=== PATIENT | female | born 1965 | race Caucasian/White ===

== ENCOUNTER → 2016-09-23 | Outpatient (CLI) | payer BC ==
[~2016-09-23] MED LIST: ESOM20CA PO; IBUP-1050 PO; MISCCAP52 PO; NLSI INJ; OPTIRAY 320 IV PRN
--- NOTE | 2016-09-23 11:08 | DIAGNOSTIC IMAGING REPORT ---
CT SOFT TISSUE NECK WITH CT DOSE: 527.79 mGycm CLINICAL HISTORY: Left neck swelling. History of lymphoma. TECHNIQUE: Helical images were acquired during intravenous administration of 93 cc of Optiray 320. COMPARISON STUDY: None. FINDINGS: The visualized portions of the lung apices are unremarkable. No thyroid masses are visualized. No salivary gland masses are visualized. There are mildly prominent bilateral cervical lymph nodes left greater than right. No individual node is pathologically enlarged by size criteria. There are no necrotic nodes. There are no fluid collections suspicious for abscess. There is no evidence of airway compromise. There is mucosal thickening within the sphenoid sinus. IMPRESSION: 1. No pathologic masses identified 2. Cervical lymph nodes at the upper limits of normal in size. No necrotic nodes are visualized. Electronically signed by: Jose Maharaj M.D. 09/23/2016 11:06 AM Dictated Date/Time: 09/23/2016 11:01 AM
== END | disposition home or self-care (01) ==
LOC: C.CTS 10:04
PROVIDERS: ATTEND Nurse Practitioner Family
DX: C83.01 Small cell B-cell lymphoma, lymph nodes of head, face, and neck (principal)

== ENCOUNTER 2024-04-20 15:59 | Inpatient (IN) ==
--- NOTE | 2024-04-20 16:22 | Emergency Department Note ---
Impression & Plan JEREL (acute kidney injury), Diarrhea, Abdominal pain, Hypotension, Hypomagnesemia ED Provider Note NAME: JASON TORRES AGE: 58 SEX: F : 1965 ARRIVES VIA: Walk-In INFORMANT: Patient, ED PROVIDER(S): Kirit Hoffmann DO CHIEF COMPLAINT: Diarrhea HPI: The patient is a 58-year-old female who presented to the emergency department for an evaluation of diarrhea. The patient has been experiencing loose stools over the course of the last several days. She was seen in our facility recently but that was because of abnormal electrolytes. She was found to have an elevated creatinine compared to baseline. The patient states that she has not been able to eat or drink well because of the diarrhea. She did have some labs and stool studies done today. She denies having any chest pain or difficulty breathing. She does complain of some lower abdominal pain. She denies having any rectal bleeding. ROS: See above HPI for pertinent positives & negatives. A total of 10 systems reviewed and were otherwise negative. PAST MEDICAL HISTORY: See Below PAST SURGICAL HISTORY: See Below FAMILY HISTORY: See Below SOCIAL HISTORY: See Below HOME MEDICATIONS: See Below ALLERGIES: See Below VITALS: See Below PHYSICAL EXAMINATION: GENERAL: Patient is awake alert in no acute distress patient is resting comfortably and showing no signs of anxiety EYES: The conjunctivae are clear. The pupils are round and reactive. EARS, NOSE, MOUTH AND THROAT: The nose is without any evidence of any deformity. NECK: The neck is nontender and supple. RESPIRATORY: Normal respiratory effort is noted there is no evidence of wheezing rhonchi or rales CARDIOVASCULAR: Regular rate and rhythm noted there no murmurs rubs or gallops normal S1 normal S2. GASTROINTESTINAL: The abdomen was soft and nondistended. Lower abdominal tenderness was noted to palpation but no guarding or rigidity. MUSCULOSKELETAL/EXTREMITIES: There is no evidence of gross deformity full range of motion is noted in the hips and shoulders. SKIN: There is no obvious evidence of any rash. There are no petechiae, pallor or cyanosis noted. NEUROLOGIC: Patient is awake alert and oriented x3 MEDICAL DECISION MAKING: The patient is a 58-year-old female who presented to the emergency department for an evaluation of dehydration. The patient has been having increasing creatinines. She is under treatment for CLL. The patient was hypotensive but she was awake and alert and had really no complaints. Her creatinine had gone up significantly since the last time she was in our emergency department. I discussed the patient's laboratory and radiographic studies with her. She was treated empirically with IV fluids and IV antibiotics. She has been having diarrhea. C. difficile was negative that was done earlier today. [facility] have agreed to evaluate the patient in the emergency department for further management and disposition. Because of the persistent hypotension a cortisol level was drawn. The patient was also treated with hydrocortisone. Triage Nursing notes reviewed. Prior medical records reviewed Vital Signs: reviewed and remarkable for hypotension. Differential diagnosis: Etiologies such as appendicitis, diverticulitis, obstruction, inflammatory bowel disease, renal colic, PUD, biliary pathology, pancreatitis, mesenteric ischemia, aortic pathology, infections, genitourinary, UTI, perforated viscus, as well as others were entertained. ER treatment provided: See below Diagnostics interpreted by me: ECG: EKG was obtained in the emergency department. My interpretation is normal sinus rhythm at 91 bpm. There is no ectopy. Poor R wave progression was noted. This was compared to a tracing from April 12, 2024. No changes were noted. Cardiac Monitoring: An order was placed for continuous cardiac monitoring. The monitor shows a rate of 80 bpm with sinus rhythm. Laboratory studies: As stated above and show below. Imaging studies: See below. Radiographic imaging was reviewed by myself Consultation(s): I discussed this case with Dr. Jackson who [facility] ED COURSE: Procedures: none Critical Care: I have personally spent greater than 45 minutes of critical care time in the direct management of this patient. This includes bedside care, interpretation of diagnostic studies, and testing, discussion with consultants, patient, and family members, and other required patient management activities. This 45 minutes is in excess of all separately billable procedures. Past Med/Surg History Problem List (Updated 04/20/24 @ 20:52 by Kirit Hoffmann DO) Sepsis Hypomagnesemia (Acute) Hypotension (Acute) Abdominal pain (Acute) Diarrhea (Acute) JEREL (acute kidney injury) (Acute) Nausea Colon cancer screening Retroperitoneal lymphadenopathy Diabetes Morbid obesity BMI 51.5 Encounter for pre-operative examination CLL (chronic lymphocytic leukemia) relapsed Hypertension Sleep apnea CPAP Medical History (Updated 04/20/24 @ 20:52 by Kirit Hoffmann DO) Insulin resistance patient states no meds any longer and "not diabetic" History of bronchitis Hypertension Sleep apnea CPAP CLL (chronic lymphocytic leukemia) History of COVID-19 hx 03/2021--mild symptoms, no symptoms now Osteoarthritis Fatty liver GERD (gastroesophageal reflux disease) IBS (irritable bowel syndrome) Hearing deficit Migraine SOB (shortness of breath) on exertion Aortic aneurysm MONITORING - following W/ DR. Carias- "measuring up to 4.2 cm in diameter" per chest CT 04/2021 [place] Cardiac murmur No murmur on exam per 05/28/21 general surgery note Surgical History Port-A-Cath in place (06/02/21) Insertion Access Port with Fluoroscopy(Left) - Cristobal Mina DO, FACS 06/02/2021 pt states it is a power port History of bone marrow biopsy History of lymph node excision CERVICAL History of surgery REMOVAL OF BENIGN GROWTH FROM RLE History of tonsillectomy History of tubal ligation Family History Mother Heart disease Family history of reaction to anesthesia PONV Cancer Hypertension Mother Family history of diabetes mellitus Grandmother Family history of diabetes mellitus Heart disease Cancer Hypertension Social History Smoking Status: Never smoker Cigarettes Per Day: quit in college; Second Hand Exposure: No; Do You Dip or Chew Tobacco: No; Hx Alcohol Use: Yes Alcohol type: beer and wine Alcohol Intake Frequency: Monthly or Less Alcohol Intake Frequency Comment: holidays Hx Substance Use: No Preferred Language: Palestinian Communication Ability: Effective Network Operations Lead Required: No Beliefs That Will Affect Care: None marital status: Current Living Situation: Spouse current occupational status: employed 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 How many Children do You have: 6 Feels Safe at Home: Yes during the past year weight has: increased > 10 lbs Assistive Devices: Glasses Allergies Allergies Allergy/AdvReac Type Severity Reaction Status Date / Time meperidine AdvReac Intermediate LOSS OF Verified 03/15/24 11:38 MEMORY procaine AdvReac Mild INEFFECTIVE Verified 03/15/24 11:38 Home Meds Home Medications Medication Instructions Recorded Confirmed aspirin 81 mg chewable tablet 81 mg PO QAM 11/24/18 04/20/24 cetirizine 10 mg tablet 10 mg PO QAM PRN Allergy Symptoms 11/24/18 04/20/24 furosemide 20 mg tablet 20 mg PO QAM 11/24/18 04/20/24 losartan 25 mg tablet 25 mg PO QAM 05/29/21 04/20/24 metoprolol tartrate 25 mg tablet 12.5 mg PO BID 05/29/21 04/20/24 famotidine 20 mg tablet (Pepcid) 20 mg PO HS PRN Other 04/27/22 04/20/24 pantoprazole 40 mg tablet,delayed 40 mg PO QAM 08/18/22 04/20/24 release Cleavers 20 ml PO QAM 03/01/24 04/20/24 [place] 20 ml PO QAM 03/01/24 04/20/24 turmeric 1 cap PO BID 03/01/24 04/20/24 allopurinol 300 mg tablet 300 mg PO PM 04/20/24 04/20/24 ondansetron HCl 8 mg tablet 8 mg PO DIRECTED PRN n/v 04/20/24 04/20/24 prochlorperazine maleate 10 mg 10 mg PO DIRECTED PRN n/v 04/20/24 04/20/24 tablet venetoclax 10 mg (14)-50 mg 1 ea PO UD 04/20/24 04/20/24 (7)-100 mg (21) tablets in a dose pack (Venclexta Starting Pack) Results & Data (ED) Vital Signs Vital Signs - 24 hr 04/20/24 16:01 04/20/24 16:39 04/20/24 17:03 Temperature 36.8 C Temperature Source Skin Pulse Rate 90 91 H Pulse Rate [Apical] Pulse Rate from SpO2 Sensor Respiratory Rate 18 Blood Pressure 75/57 L Blood Pressure [Left Arm] Blood Pressure Mean 63 Blood Pressure Mean [Left Arm] Blood Pressure Position [Left Arm] Pulse Oximetry 97 Oxygen Delivery Method Room Air Room Air Sepsis Recent Fever Within 48 Hours No Sepsis New/Unexplained Change in Mental Status No Sepsis Action Taken by Nursing No Action Required 04/20/24 17:12 04/20/24 17:25 04/20/24 17:32 Temperature Temperature Source Pulse Rate 86 83 Pulse Rate [Apical] 90 Pulse Rate from SpO2 Sensor Respiratory Rate 20 18 13 Blood Pressure 99/57 L 79/53 L Blood Pressure [Left Arm] 74/36 L Blood Pressure Mean 66 61 Blood Pressure Mean [Left Arm] 48 Blood Pressure Position [Left Arm] Pulse Oximetry 94 97 97 Oxygen Delivery Method Room Air Room Air Sepsis Recent Fever Within 48 Hours Sepsis New/Unexplained Change in Mental Status Sepsis Action Taken by Nursing 04/20/24 17:35 04/20/24 17:38 04/20/24 17:50 Temperature Temperature Source Pulse Rate 87 84 Pulse Rate [Apical] Pulse Rate from SpO2 Sensor 84 Respiratory Rate 16 19 Blood Pressure 81/58 L 88/55 L Blood Pressure [Left Arm] Blood Pressure Mean 65 63 Blood Pressure Mean [Left Arm] Blood Pressure Position [Left Arm] Pulse Oximetry 96 99 Oxygen Delivery Method Room Air Room Air Sepsis Recent Fever Within 48 Hours Sepsis New/Unexplained Change in Mental Status Sepsis Action Taken by Nursing 04/20/24 17:50 04/20/24 18:00 04/20/24 18:00 Temperature Temperature Source Pulse Rate 88 Pulse Rate [Apical] Pulse Rate from SpO2 Sensor 84 Respiratory Rate 13 Blood Pressure 105/60 105/60 Blood Pressure [Left Arm] Blood Pressure Mean 68 68 Blood Pressure Mean [Left Arm] Blood Pressure Position [Left Arm] Pulse Oximetry 96 Oxygen Delivery Method Sepsis Recent Fever Within 48 Hours Sepsis New/Unexplained Change in Mental Status Sepsis Action Taken by Nursing 04/20/24 18:02 04/20/24 18:05 04/20/24 18:05 Temperature Temperature Source Pulse Rate 83 82 Pulse Rate [Apical] Pulse Rate from SpO2 Sensor 74 77 Respiratory Rate 15 20 Blood Pressure 85/61 L Blood Pressure [Left Arm] Blood Pressure Mean 69 Blood Pressure Mean [Left Arm] Blood Pressure Position [Left Arm] Pulse Oximetry 99 98 Oxygen Delivery Method Sepsis Recent Fever Within 48 Hours Sepsis New/Unexplained Change in Mental Status Sepsis Action Taken by Nursing 04/20/24 18:05 04/20/24 18:08 04/20/24 18:11 Temperature Temperature Source Pulse Rate 85 Pulse Rate [Apical] Pulse Rate from SpO2 Sensor 82 Respiratory Rate 16 Blood Pressure 85/61 L 99/55 L Blood Pressure [Left Arm] Blood Pressure Mean 69 70 Blood Pressure Mean [Left Arm] Blood Pressure Position [Left Arm] Pulse Oximetry 94 Oxygen Delivery Method Sepsis Recent Fever Within 48 Hours Sepsis New/Unexplained Change in Mental Status Sepsis Action Taken by Nursing 04/20/24 18:15 04/20/24 18:17 04/20/24 18:25 Temperature Temperature Source Pulse Rate 85 Pulse Rate [Apical] Pulse Rate from SpO2 Sensor 87 Respiratory Rate 13 Blood Pressure 99/60 L 91/58 L Blood Pressure [Left Arm] Blood Pressure Mean 74 64 Blood Pressure Mean [Left Arm] Blood Pressure Position [Left Arm] Pulse Oximetry 98 Oxygen Delivery Method Sepsis Recent Fever Within 48 Hours Sepsis New/Unexplained Change in Mental Status Sepsis Action Taken by Nursing 04/20/24 18:35 04/20/24 18:38 04/20/24 18:40 Temperature Temperature Source Pulse Rate 83 83 Pulse Rate [Apical] Pulse Rate from SpO2 Sensor 83 83 Respiratory Rate 22 17 Blood Pressure 88/56 L Blood Pressure [Left Arm] Blood Pressure Mean 66 Blood Pressure Mean [Left Arm] Blood Pressure Position [Left Arm] Pulse Oximetry 98 97 Oxygen Delivery Method Room Air Sepsis Recent Fever Within 48 Hours Sepsis New/Unexplained Change in Mental Status Sepsis Action Taken by Nursing 04/20/24 18:40 04/20/24 18:41 04/20/24 18:45 Temperature Temperature Source Pulse Rate 81 Pulse Rate [Apical] Pulse Rate from SpO2 Sensor 82 Respiratory Rate 15 Blood Pressure 88/56 L 95/56 L Blood Pressure [Left Arm] Blood Pressure Mean 66 61 Blood Pressure Mean [Left Arm] Blood Pressure Position [Left Arm] Pulse Oximetry 96 Oxygen Delivery Method Sepsis Recent Fever Within 48 Hours Sepsis New/Unexplained Change in Mental Status Sepsis Action Taken by Nursing 04/20/24 18:50 04/20/24 18:50 04/20/24 18:50 Temperature Temperature Source Pulse Rate Pulse Rate [Apical] Pulse Rate from SpO2 Sensor Respiratory Rate Blood Pressure 85/55 L 85/55 L 85/55 L Blood Pressure [Left Arm] Blood Pressure Mean 63 63 63 Blood Pressure Mean [Left Arm] Blood Pressure Position [Left Arm] Pulse Oximetry Oxygen Delivery Method Sepsis Recent Fever Within 48 Hours Sepsis New/Unexplained Change in Mental Status Sepsis Action Taken by Nursing 04/20/24 18:50 04/20/24 18:53 04/20/24 18:55 Temperature Temperature Source Pulse Rate 82 Pulse Rate [Apical] Pulse Rate from SpO2 Sensor 82 Respiratory Rate 15 Blood Pressure 85/55 L 91/57 L Blood Pressure [Left Arm] Blood Pressure Mean 63 68 Blood Pressure Mean [Left Arm] Blood Pressure Position [Left Arm] Pulse Oximetry 95 Oxygen Delivery Method Sepsis Recent Fever Within 48 Hours Sepsis New/Unexplained Change in Mental Status Sepsis Action Taken by Nursing 04/20/24 19:00 04/20/24 19:00 04/20/24 19:00 Temperature Temperature Source Pulse Rate 83 Pulse Rate [Apical] Pulse Rate from SpO2 Sensor 84 Respiratory Rate 15 Blood Pressure 94/58 L 94/58 L Blood Pressure [Left Arm] Blood Pressure Mean 70 70 Blood Pressure Mean [Left Arm] Blood Pressure Position [Left Arm] Pulse Oximetry 98 Oxygen Delivery Method Sepsis Recent Fever Within 48 Hours Sepsis New/Unexplained Change in Mental Status Sepsis Action Taken by Nursing 04/20/24 19:02 04/20/24 19:05 04/20/24 19:08 Temperature Temperature Source Pulse Rate 81 82 Pulse Rate [Apical] Pulse Rate from SpO2 Sensor 81 78 Respiratory Rate 17 15 Blood Pressure 89/57 L Blood Pressure [Left Arm] Blood Pressure Mean 64 Blood Pressure Mean [Left Arm] Blood Pressure Position [Left Arm] Pulse Oximetry 97 94 Oxygen Delivery Method Room Air Sepsis Recent Fever Within 48 Hours Sepsis New/Unexplained Change in Mental Status Sepsis Action Taken by Nursing 04/20/24 19:10 04/20/24 19:17 04/20/24 19:26 Temperature Temperature Source Pulse Rate 85 Pulse Rate [Apical] Pulse Rate from SpO2 Sensor 77 Respiratory Rate 16 Blood Pressure 94/61 L 68/42 L Blood Pressure [Left Arm] Blood Pressure Mean 68 50 Blood Pressure Mean [Left Arm] Blood Pressure Position [Left Arm] Pulse Oximetry 93 Oxygen Delivery Method Sepsis Recent Fever Within 48 Hours Sepsis New/Unexplained Change in Mental Status Sepsis Action Taken by Nursing 04/20/24 19:30 04/20/24 19:36 04/20/24 19:39 Temperature Temperature Source Pulse Rate Pulse Rate [Apical] 84 Pulse Rate from SpO2 Sensor Respiratory Rate 13 Blood Pressure 97/59 L 73/46 L Blood Pressure [Left Arm] 73/46 L Blood Pressure Mean 67 59 Blood Pressure Mean [Left Arm] 55 Blood Pressure Position [Left Arm] Semi-fowlers Pulse Oximetry 94 Oxygen Delivery Method Room Air Sepsis Recent Fever Within 48 Hours Sepsis New/Unexplained Change in Mental Status Sepsis Action Taken by Nursing 04/20/24 19:40 Temperature Temperature Source Pulse Rate Pulse Rate [Apical] Pulse Rate from SpO2 Sensor Respiratory Rate Blood Pressure 75/48 L Blood Pressure [Left Arm] Blood Pressure Mean 55 Blood Pressure Mean [Left Arm] Blood Pressure Position [Left Arm] Pulse Oximetry Oxygen Delivery Method Sepsis Recent Fever Within 48 Hours Sepsis New/Unexplained Change in Mental Status Sepsis Action Taken by Long Term Medications Current Medication List: was personally reviewed by me Laboratory Data Attestation: I reviewed the patient's lab results. 04/20/24 16:25 04/20/24 16:25 Lab Results 04/20/24 Range/Units 16:25 WBC 4.92 (4.8-10.8) K/ul RBC 4.41 (4.20-5.40) M/uL Hgb 12.5 (12.0-16.0) g/dl Hct 37.6 (37.0-47.0) % MCV 85.3 (80.0-100.0) fL MCH 28.3 (25.0-34.0) pg MCHC 33.2 (32.0-36.0) g/dL RDW Std Deviation 45.1 (36.4-46.3) fL RDW Coeff of Dimitri 14.5 (11.5-14.5) % Plt Count 164 (130-400) K/uL MPV 9.7 (9.4-12.4) fL Immature Gran % (Auto) 0.6 % Neut % (Auto) 36.2 % Lymph % (Auto) 33.7 % Harmon % (Auto) 18.1 % Eos % (Auto) 10.8 % Baso % (Auto) 0.6 % Neut # (Auto) 1.78 (1.40-6.50) K/uL Lymph # (Auto) 1.66 (1.20-3.40) K/uL Harmon # (Auto) 0.89 H (0.11-0.59) K/uL Eos # (Auto) 0.53 H (0.00-0.50) K/uL Baso # (Auto) 0.03 (0.00-0.20) K/uL Immature Gran # (Auto) 0.03 (0.01-0.20) K/uL Echinocytes 1+ PT 12.3 H (9.0-12.0) Seconds INR 1.1 (0.9-1.1) APTT 37 H (21-31) Seconds PTT Ratio 1.4 Sodium 137 (136-145) mmol/L Potassium 3.9 (3.5-5.1) mmol/L Chloride 105 (98-107) mmol/L Carbon Dioxide 20 L (21-32) mmol/L Anion Gap 12 H (3-11) BUN 33 H (6-23) mg/dl Creatinine 4.46 H (0.6-1.2) mg/dl Est Cr Clr Drug Dosing 19.0 ml/min eGFR 10.92 BUN/Creatinine Ratio 7.4 L (10-20) Glucose 102 H (70-99(Fasting)) mg/dl Lactate 1.4 (0.4-2.0) mmol/L Uric Acid 5.7 (2.6-7.2) mg/dl Calcium 8.8 (8.6-10.3) mg/dl Magnesium 1.4 L (1.7-2.4) mg/dl Total Bilirubin 0.5 (0.2-1.0) mg/dl Direct Bilirubin 0.2 (0-0.2) mg/dl AST 16 (13-39) U/L ALT 20 (7-52) U/L Alkaline Phosphatase 92 (34-104) U/L Lactate Dehydrogenase 182 (86-244) U/L Troponin I High Sens 3.0 (0-14) pg/ml Total Protein 6.4 (6.0-8.3) gm/dl Albumin 3.4 (3.4-5.0) gm/dl Procalcitonin 2.14 H (0-0.5) ng/ml Random Cortisol 15.72 mcg/dl Administered Medications Magnesium Sulfate/Dextrose (Magnesium Sulfate / D5w) 1 gm in 100 mls @ 50 mls/hr IV Q2H JOSE Stop: 04/20/24 22:44 Last Admin: 04/20/24 19:56 Dose: 50 mls/hr Documented By: [facility] Lactated Ringer's (Lr) 1,000 mls @ 125 mls/hr IV .Q8H JOSE Stop: 04/21/24 11:14 Last Admin: 04/20/24 19:55 Dose: 125 mls/hr Documented By: [facility] Norepinephrine Bitartrate (Levophed/D5w) 4 mg in 250 mls @ 25.144 mls/hr IV .Q9H57M JOSE; Protocol Stop: 05/20/24 19:44 Last Admin: 04/20/24 19:40 Dose: 0.05 mcg/kg/min, 25.1 mls/hr Documented By: KIMMIE Co-signed By: ORALIA Discontinued Medications Hydrocortisone Sodium Succinate (Hydrocortisone Sod Succinate 100 Mg/2 Ml Vial) 100 mg IV NOW STA Stop: 04/20/24 17:24 Last Admin: 04/20/24 17:43 Dose: 100 mg Documented By: JANINE Sodium Chloride (Nss) 1,000 mls @ 999 mls/hr IV .Q1H1M ONE Stop: 04/20/24 17:13 Last Infusion: 04/20/24 18:01 Dose: Infused Documented By: Admin: 04/20/24 17:00 Dose: 999 mls/hr Documented By: DUSTIN Sodium Chloride (Nss) 1,000 mls @ 999 mls/hr IV .Q1H1M ONE Stop: 04/20/24 18:00 Last Infusion: 04/20/24 18:19 Dose: Infused Documented By: Admin: 04/20/24 17:17 Dose: 999 mls/hr Documented By: AUNDREA Cefepime HCl (Maxipime 2000mg) 2,000 mg in 20 mls @ 5 mls/min IV NOW STA; Protocol Stop: 04/20/24 17:26 Last Admin: 04/20/24 17:37 Dose: 5 mls/min Documented By: JANINE Magnesium Sulfate/Dextrose (Magnesium Sulfate / D5w) 1 gm in 100 mls @ 100 mls/hr IV NOW STA Stop: 04/20/24 18:32 Last Infusion: 04/20/24 18:38 Dose: Infused Documented By: Admin: 04/20/24 17:41 Dose: 100 mls/hr Documented By: JANINE Sodium Chloride (Nss) 1,000 mls @ 999 mls/hr IV .Q1H1M ONE Stop: 04/20/24 18:33 Last Admin: 04/20/24 17:51 Dose: Not Given Documented By: JANINE Lactated Ringer's (Lr) 1,000 mls @ 999 mls/hr IV .Q1H1M ONE Stop: 04/20/24 18:58 Last Infusion: 04/20/24 18:39 Dose: Infused Documented By: Admin: 04/20/24 17:15 Dose: 999 mls/hr Documented By: AUNDREA Calcium Gluconate () 1,000 mg in 60 mls @ 240 mls/hr IV NOW STA Stop: 04/20/24 19:07 Last Admin: 04/20/24 19:56 Dose: 240 mls/hr Documented By: MADELINE Morphine Sulfate (Morphine Sulfate 4 Mg/Ml 1 Ml Carp\\Vial) 4 mg IV NOW STA Stop: 04/20/24 16:14 Last Admin: 04/20/24 17:38 Dose: Not Given Documented By: JANINE Ondansetron HCl (Ondansetron Inj 2 Mg/Ml 2 Ml Vial) 4 mg IV NOW STA Stop: 04/20/24 16:14 Last Admin: 04/20/24 17:02 Dose: 4 mg Documented By: DUSTIN Imaging Data Attestation: I personally reviewed and interpreted this imaging study as follows: My Impression: CT of the abdomen and pelvis was obtained in the emergency department. My interpretation is no free air or definite bowel obstruction, final report below. 1 view chest x-ray was obtained in the emergency department. My interpretation is no free air or definite infiltrate, final report below. Radiologist's Impression: Abdomen/Pelvis CT 04/20/24 16:13 EXAM: CT Abdomen and Pelvis Without Intravenous Contrast INDICATION: Nausea, diarrhea and weakness. TECHNIQUE: Axial computed tomography images of the abdomen and pelvis without intravenous contrast. Sagittal and coronal reformatted images were created and reviewed. This CT exam was performed using one or more of the following dose reduction techniques: automated exposure control, adjustment of the mA and/or kV according to patient size, and/or use of iterative reconstruction technique. COMPARISON: 01/05/2024 FINDINGS: Limitations: None. Lung bases: No abnormality noted. Pleural space: No visualized pleural effusion or pneumothorax. Heart: No abnormality noted. Mediastinum: No abnormality noted. ABDOMEN: Liver: Lack of intravenous contrast limits detection of some masses. No abnormality noted. Gallbladder and bile ducts: The gallbladder is dilated and contains mild layering sludge. No calcified stones visible. No ductal dilatation or calcification. Pancreas: No pancreatic mass, calcification, inflammation or ductal dilation noted. Spleen: No significant abnormality noted. Adrenals: No significant abnormality noted. Kidneys and ureters: No abnormality noted. No stones. No hydronephrosis. No significant perinephric fluid. Stomach and bowel: Mild air-fluid level throughout the colon. No intestinal obstruction. No segmental thickening. PELVIS: Appendix: Well seen and appears normal. Bladder: Appears normal for the degree of filling. No stones or inflammation. No large mass. Masses may not be detected in the absence of opacification. Reproductive: No abnormalities noted. ABDOMEN and PELVIS: Intraperitoneal space: No free air. No significant fluid collection. Bones/joints: See below. Soft tissues: No significant abnormality noted. Vasculature: No abdominal aortic aneurysm. Lymph nodes: Stable iliac, mesenteric and retroperitoneal adenopathy with nodes measuring up to 2.0 cm short axis dimension. IMPRESSION: 1. Fluid layers in the colon most typical of colonic ileus or any diarrhea causing disease. There is no intestinal obstruction or focal inflammatory process. 2. Dilated gallbladder with mild sludge. If there is need for further radiologic evaluation, sonography is the modality of choice. 3. Stable adenopathy. ACT 112: Negative or not required by law. Electronically signed by Mayda Robledo 04-20-2024 5:21 PM Chest X-Ray 04/20/24 16:13 EXAM: Radiograph of the Chest 1 View INDICATION: Sepsis. TECHNIQUE: Frontal view of the chest. COMPARISON: 04/12/2024 FINDINGS: Lungs and pleural spaces: No consolidation or pulmonary edema. No pleural effusion or pneumothorax. Heart: Shape and configuration within normal limits allowing for technique. Mediastinum: Normal contour. Bones/joints: No fracture, erosion or dislocation. Soft tissues: No abnormality noted. No radiopaque foreign body noted. Tubes, lines and devices: Left internal jugular central venous catheter tip in the distal superior vena cava. Upper abdomen: No abnormality noted. IMPRESSION: 1. No acute cardiopulmonary disease. 2. Lines and tubes as above. ACT 112: Negative or not required by law. Electronically signed by Mayda Robledo 04-20-2024 5:16 PM Discharge Plan Visit Data Chief Complaint: Dehydration Stated Complaint: DEHYDRATION, [facility] Provider: Kirit Hoffmann Discharge Problem: JEREL (acute kidney injury), Diarrhea, Abdominal pain, Hypotension, Hypomagnesemia Patient Disposition: Being Evaluated by Hospitalist Forms Stand Alone Forms: [facility] Save On Medical Prescriptions Prescriptions: No Action famotidine [Pepcid] 20 mg tablet 20 mg PO HS PRN (Reason: Other) cetirizine 10 mg Tablet 10 mg PO QAM PRN (Reason: Allergy Symptoms) aspirin 81 mg Tablet,Chewable 81 mg PO QAM furosemide 20 mg Tablet 20 mg PO QAM losartan 25 mg Tablet 25 mg PO QAM metoprolol tartrate 25 mg Tablet 12.5 mg PO BID pantoprazole 40 mg Tablet,Delayed Release (Dr/Ec) 40 mg PO QAM ondansetron HCl 8 mg tablet 8 mg PO DIRECTED PRN (Reason: n/v) prochlorperazine maleate 10 mg tablet 10 mg PO DIRECTED PRN (Reason: n/v) allopurinol 300 mg tablet 300 mg PO PM Venclexta Starting Pack 10 mg-50 mg- 100 mg tablets,dose pack 1 ea PO UD Rx Instructions: hasnt started yet Cleavers 20 ml PO QAM [place]ail 20 ml PO QAM turmeric 1 cap PO BID Patient Comments: unknown strength Referrals Referrals: Emilee Gil PA-C [Primary Care Provider] - Discharge Problem: Diarrhea Qualifiers: Diarrhea type: unspecified type Qualified Code(s): R19.7 - Diarrhea, unspecified Abdominal pain Qualifiers: Abdominal location: lower abdomen, unspecified Qualified Code(s): R10.30 - Lower abdominal pain, unspecified Hypotension Qualifiers: Hypotension type: unspecified hypotension type Qualified Code(s): I95.9 - Hypotension, unspecified
[2024-04-20 16:54] LABS: Hematocrit (blood only) 37.6 % (37.0-47.0); Hemoglobin 12.5 g/dl (12.0-16.0); Mean Corpuscular Hemoglobin 28.3 pg (25.0-34.0); Mean Corpuscular Hgb Conc 33.2 g/dL (32.0-36.0); Mean Corpuscular Volume 85.3 fL (80.0-100.0); Mean Platelet Volume 9.7 fL (9.4-12.4); Platelet Count 164 K/uL (130-400); RDW Coefficient of Variation 14.5 % (11.5-14.5); RDW Standard Deviation 45.1 fL (36.4-46.3); Red Blood Count 4.41 M/uL (4.20-5.40); White Blood Count 4.92 K/ul (4.8-10.8)
[2024-04-20] MEDS: SODIUM CHLORIDE 0.9% 1,000 ML IV ONE ×3 (17:00→17:51)
[2024-04-20] MEDS: ONDANSETRON INJ 2 MG/ML 2 ML VIAL IV STA (17:02)
[2024-04-20] MEDS: LACTATED RINGER'S 1,000 ML IV ONE (17:15)
[2024-04-20 17:16] LABS: Albumin Level 3.4 gm/dl (3.4-5.0); BUN Creatinine Ratio 7.4 (10-20); Bilirubin Direct 0.2 mg/dl (0-0.2); Bilirubin,Total 0.5 mg/dl (0.2-1.0); Calcium 8.8 mg/dl (8.6-10.3); Magnesium 1.4 mg/dl (1.7-2.4); Potassium 3.9 mmol/L (3.5-5.1); Total Protein 6.4 gm/dl (6.0-8.3); Uric Acid 5.7 mg/dl (2.6-7.2)
--- NOTE | 2024-04-20 17:16 | XRay Report ---
EXAM: Radiograph of the Chest 1 View INDICATION: Sepsis. TECHNIQUE: Frontal view of the chest. COMPARISON: 04/12/2024 FINDINGS: Lungs and pleural spaces: No consolidation or pulmonary edema. No pleural effusion or pneumothorax. Heart: Shape and configuration within normal limits allowing for technique. Mediastinum: Normal contour. Bones/joints: No fracture, erosion or dislocation. Soft tissues: No abnormality noted. No radiopaque foreign body noted. Tubes, lines and devices: Left internal jugular central venous catheter tip in the distal superior vena cava. Upper abdomen: No abnormality noted. IMPRESSION: 1. No acute cardiopulmonary disease. 2. Lines and tubes as above. ACT 112: Negative or not required by law. Electronically signed by Mayda Robledo 04-20-2024 5:16 PM
--- NOTE | 2024-04-20 17:19 | History & Physical Report ---
Date of Service April 20, 2024 Assessment & Plan (1) Hypotension: Plan: Diarrhea x 4 days Sent in by the [facility]CP for volume depletion Hypotensive on ED arrival at 75/57, and dropping as low as 49/33 on initial admission assessment Patient's BP did rebounded IVF boluses (4000 mL) DDx on arrival does include septic shock, and significant volume contraction in setting of GI losses Lactate WNL at 1.4, procalcitonin elevated at 2.14 Continue cefepime 2000 mg IV q8h empirically Hydrocortisone 100 mg IV x 1 in the ED; random cortisol 15.75 (technically WNL, but would expect cortisol to be elevated given patient's stress/illness level) Continue hydrocortisone 50mg IV q6h for now Calcium gluconate 1000 mg IV x 1 Hold all antihypertensive medications for now Additional fluids to be given overnight: LR at 125 mL/hr x 2 L (in the setting of significant GI losses) A.m. CBC, BMP, mag (2) Sepsis: Plan: Despite no leukocytosis and lactate WNL, will treat as sepsis (as above) (3) JEREL (acute kidney injury): Plan: BUN 33, creatinine 4.46 (baseline around 1.6), EGFR 35.9 Avoid nephrotoxic agents where possible Suspect prerenal in the setting of GI losses and poor oral intake No prior history of kidney stones or obstructions; only new medication is allopurinol, however this was started 04/03 and BMP was rechecked on 04/12 without changes Fluid resuscitation (as above) (4) Hypomagnesemia: Plan: Magnesium 1.4 on arrival Suspect secondary to GI losses Magnesium sulfate 1 g IV x 3 Hold pantoprazole Recheck a.m. mag (5) Diarrhea: Plan: C. difficile negative on 04/20 PCR stool ordered, pending Supportive care Will defer Questran and Imodium at this time (6) Sleep apnea: Plan: CPAP HS (7) CLL (chronic lymphocytic leukemia): Plan: Follows with [facility]CP Plan Disposition: BP still pending to determine level of care; please see Dr. Dewitt's attestation for any changes to treatment plan overnight; recommend PCU if BP stabilizes, and ICU/vasopressors if BP remains low despite fluid resuscitation Full code Regular diet VTE PPx: Heparin 7500 units q12h History of Present Illness Chief Complaint: Dehydration, hypotension Primary Care Provider: Emilee Mosquera is a pleasant 58-year-old female with PMH of CLL, HTN, sleep apnea, and diabetes. She presented on 04/20 at the behest of the cancer [facility] for diarrhea and dehydration that began on Wednesday night 04/16. Patient reports that the diarrhea is liquidy in consistency, and that yesterday it was black. It has been so frequent that she had to put a depends briefs on because it was constantly coming out. No prior history of GI bleeds. No prior history of C. difficile infections. She does report she was on antibiotics 2 weeks ago for 7 days (prescribed by Dr. Conde). She also reports she has had intermittent fevers over the last 4 days (ranging up to 101 F), and she has been rotating Tylenol and ibuprofen for the fevers. She has been taking Imodium for the diarrhea, but reports this has not been helping. She also tried another OTC antidiarrheal agent (Kaopectate x 2 doses).patient reports that she took all her regular morning medicines today. Only recent change in medications was that she was started on allopurinol on 04/03. No prior history of abdominal surgeries. Patient is currently undergoing treatment at the [facility] for her CLL. Her last treatment was last Thursday 04/12, and she does report that she has "not felt right since". No sick contacts to her knowledge. She does endorse intermittent abdominal pain, that she characterizes as "hot cramping"; (, she had applied an ice pack to her stomach yesterday. Patient is not eating or drinking much this past week. She denies smoking, tobacco use, recent alcohol use. Patient's blood pressure was 75/57 on arrival. Patient's blood pressure was cycled at the bedside and it was 49/33. After IVF boluses (4000 mL), patient's BP is ~90/60 at time of admission. Vitals otherwise stable. ED course: NSS 1000 mL IV x 2 Zofran 4 mg IV Morphine sulfate 4 mg IV Cefepime 2000 mg IV Hydrocortisone 100mg IV ROS: Patient endorses black/liquidy diarrhea x 4 days, fever, chills, night sweats, dizziness, presyncope, dyspnea on exertion (patient has trouble walking up steps, but reports this is not new for her), dry cough, abdominal cramping, and mild nausea. Patient denies syncope, headache, rashes, tick bites, chest pain, chest palpitations, SOB at rest, pleuritic CP, vomiting, burning with urination, numbness or tingling in the arms or legs, or BRB in the stool or urine. Allergies Allergy/AdvReac Type Severity Reaction Status Date / Time meperidine AdvReac Intermediate LOSS OF Verified 03/15/24 11:38 MEMORY procaine AdvReac Mild INEFFECTIVE Verified 03/15/24 11:38 Home Medications Medication Instructions Recorded Confirmed Type aspirin 81 mg chewable tablet 81 mg PO QAM 11/24/18 04/20/24 History cetirizine 10 mg tablet 10 mg PO QAM PRN Allergy Symptoms 11/24/18 04/20/24 History furosemide 20 mg tablet 20 mg PO QAM 11/24/18 04/20/24 History losartan 25 mg tablet 25 mg PO QAM 05/29/21 04/20/24 History metoprolol tartrate 25 mg tablet 12.5 mg PO BID 05/29/21 04/20/24 History famotidine 20 mg tablet (Pepcid) 20 mg PO HS PRN Other 04/27/22 04/20/24 History pantoprazole 40 mg tablet,delayed 40 mg PO QAM 08/18/22 04/20/24 History release Cleavers 20 ml PO QAM 03/01/24 04/20/24 History [place] Tail 20 ml PO QAM 03/01/24 04/20/24 History turmeric 1 cap PO BID 03/01/24 04/20/24 History allopurinol 300 mg tablet 300 mg PO PM 04/20/24 04/20/24 History ondansetron HCl 8 mg tablet 8 mg PO DIRECTED PRN n/v 04/20/24 04/20/24 History prochlorperazine maleate 10 mg 10 mg PO DIRECTED PRN n/v 04/20/24 04/20/24 History tablet venetoclax 10 mg (14)-50 mg 1 ea PO UD 04/20/24 04/20/24 History (7)-100 mg (21) tablets in a dose pack (Venclexta Starting Pack) Past Med/Surg History Problem List (Updated 04/20/24 @ 19:11 by Pepe Livingston PA-C) Sepsis Hypomagnesemia Hypotension Abdominal pain (Acute) Diarrhea (Acute) JEREL (acute kidney injury) (Acute) Nausea Colon cancer screening Retroperitoneal lymphadenopathy Diabetes Morbid obesity BMI 51.5 Encounter for pre-operative examination CLL (chronic lymphocytic leukemia) relapsed Hypertension Sleep apnea CPAP Medical History (Updated 04/20/24 @ 19:11 by Pepe Livingston PA-C) Insulin resistance patient states no meds any longer and "not diabetic" History of bronchitis Hypertension Sleep apnea CPAP CLL (chronic lymphocytic leukemia) History of COVID-19 hx 03/2021--mild symptoms, no symptoms now Osteoarthritis Fatty liver GERD (gastroesophageal reflux disease) IBS (irritable bowel syndrome) Hearing deficit Migraine SOB (shortness of breath) on exertion Aortic aneurysm MONITORING - following W/ DR. Carias- "measuring up to 4.2 cm in diameter" per chest CT 04/2021 [place] Cardiac murmur No murmur on exam per 05/28/21 general surgery note Surgical History Port-A-Cath in place (06/02/21) Insertion Access Port with Fluoroscopy(Left) - Cristobal Mina DO, FACS 06/02/2021 pt states it is a power port History of bone marrow biopsy History of lymph node excision CERVICAL History of surgery REMOVAL OF BENIGN GROWTH FROM RLE History of tonsillectomy History of tubal ligation Family History Mother Heart disease Family history of reaction to anesthesia PONV Cancer Hypertension Mother Family history of diabetes mellitus Grandmother Family history of diabetes mellitus Heart disease Cancer Hypertension Social History Smoking Status: Never smoker Cigarettes Per Day: quit in college; Second Hand Exposure: No; Do You Dip or Chew Tobacco: No; Hx Alcohol Use: Yes Alcohol type: beer and wine Alcohol Intake Frequency: Monthly or Less Alcohol Intake Frequency Comment: holidays Hx Substance Use: No Preferred Language: Polish Communication Ability: Effective Junior Web Designer Required: No Beliefs That Will Affect Care: None marital status: Current Living Situation: Spouse current occupational status: employed 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 How many Children do You have: 6 Feels Safe at Home: Yes during the past year weight has: increased > 10 lbs Assistive Devices: Glasses Review of Systems Review of Systems: See HPI above Physical Exam Physical Exam: General: no acute distress; anxious; pleasant affect; non-toxic appearing; cooperative; SpO2 96% on RA HEENT: normocephalic, atraumatic; no scleral icterus; PERRLA; vision and hearing grossly intact Neck: supple; trachea midline Skin: warm, dry without signs of tenting; no cyanosis; no rashes, bruising, lesions, or erythema noted CV: chest wall NTP; RRR; S1/S2 normal; no murmurs/rubs/gallops; pulses intact and symmetric at radial, DP, and PT Lungs: no acute respiratory distress; symmetrical chest wall expansion; clear breath sounds across all lung acuna w/o adventitious sounds; no wheezing ABD: Soft, NTP; BS present; no rebound/guarding; moderate distention secondary to body habitus; no rashes or bruising on the abdomen or flanks bilaterally MSK: no tics or fasciculations; nonpitting edema noted in the LEs b/l, nonerythematous Neuro: A&Ox3; normal mood and affect; fluent speech; no focal deficits; se nsation intact and symmetric in the lower extremities bilaterally Results & Data Results & Data Vital Signs (Past 12 Hours) Vital Signs Temp Pulse Pulse Resp BP BP Pulse Ox 04/20/24 17:12 90 20 74/36 L 94 04/20/24 17:03 04/20/24 16:39 91 H 04/20/24 16:01 36.8 C 90 18 75/57 L 97 O2 Del Method 04/20/24 17:12 04/20/24 17:03 Room Air 04/20/24 16:39 04/20/24 16:01 Room Air Laboratory Results Abnormal lab results 04/20/24 Range/Units 16:25 Carbon Dioxide 20 L (21-32) mmol/L Anion Gap 12 H (3-11) BUN 33 H (6-23) mg/dl Creatinine 4.46 H (0.6-1.2) mg/dl BUN/Creatinine Ratio 7.4 L (10-20) Glucose 102 H (70-99(Fasting)) mg/dl Magnesium 1.4 L (1.7-2.4) mg/dl Procalcitonin 2.14 H (0-0.5) ng/ml Diagnostic Findings Chest X-Ray 04/20/24 16:13 EXAM: Radiograph of the Chest 1 View INDICATION: Sepsis. TECHNIQUE: Frontal view of the chest. COMPARISON: 04/12/2024 FINDINGS: Lungs and pleural spaces: No consolidation or pulmonary edema. No pleural effusion or pneumothorax. Heart: Shape and configuration within normal limits allowing for technique. Mediastinum: Normal contour. Bones/joints: No fracture, erosion or dislocation. Soft tissues: No abnormality noted. No radiopaque foreign body noted. Tubes, lines and devices: Left internal jugular central venous catheter tip in the distal superior vena cava. Upper abdomen: No abnormality noted. IMPRESSION: 1. No acute cardiopulmonary disease. 2. Lines and tubes as above. ACT 112: Negative or not required by law. Electronically signed by Mayda Robledo 04-20-2024 5:16 PM ECG Additional Comments: ECG revealed NSR at 91 bpm; QTc 423 Code Status & VTE Plan Code Status Full code (discussed with both patient and patient's at bedside) VTE Prophylaxis Plan VTE Prophylaxis will be ordered: Yes Supervising Physician Co-Signing Physician Notes Patient seen and examined, chart reviewed, case discussed with Pepe Livingston PA-C and I agree with the assessment and plan as above except as otherwise noted Labs and images reviewed Eveline is a 58-year-old female with a history of CLL, hypertension, sleep apnea, diabetes who [facility] suspected volume depletion and dehydration. CTA/P: Layering fluid of the colon suspicious for diarrheal illness but no evidence of obstruction or inflammatory process is seen. Gallbladder dilation with sludge is seen, patient does not have an associated transaminitis. Procalcitonin 2.14. No leukocytosis. Renal function is acutely elevated from baseline of approximately 1.9, 4.41 on admission. Chest x-ray: No acute findings Patient given hydrocortisone 100 mg IV Cefepime patient was seen by ENT at bedside. On PA assessment blood pressure 40 systolic, post 1 L of fluid prehospital and 1 L completing prior to assessment. Patient had 1 dose of steroids around her cancer treatment but had not been on extended steroid treatments recently. She reports she has had very liquid diarrhea without blood for several days and has not been eating or drinking very much due to poor appetite. Last c Diel treatment approximately 3 weeks ago. At time bedside assessment denies abdominal pain but notes she has had some cramping discomfort in her belly in the last few days. Patient is currently with MAP less than 60 however lactate on admission was normal. Has received hydrocortisone and random cortisol is pending. Will complete sepsis recommended body weight fluid goal of 4 L. Due to rising hyperchloremia and renal dysfunction will transition saline to balance crystalloid and complete repletion with 1-2 L of LR. Suspect creatinine is elevated for severe prerenal contraction.C. difficile is negative. Procalcitonin is elevated may be from infection versus severe hypotension and renal dysfunction. There is no leukocytosis. Will treat for sepsis and cover empirically, blood cultures are pending. Continue cefepime on admission. No history of MRSA. Chest x-ray does not show any acute disease. Stool bio fire is pending. Addendum, 1930 hrs.: Patient is seen by attending provider several times on initial assessment, and on serial reassessments. following completion of 4 L of crystalloid and reassessment patient remains hypotensive. Sluggish capillary refill is noted. Of note several pressures collected with a undersized wrist cuff. Manual pressures x 2 with correctly sized adult cuff at the proximal arm are persistently with blood pressures less than systolic 80. Patient continues to have diarrhea. Patient also feeling some swelling of her fingers following fluids. Given persistent hypotension despite fluids, and hydrocortisone given for possible adrenal insufficiency with inappropriately low random cortisol patient has been ordered Levophed to maintain a MAP greater than 6570. Discussed with ICU SAMIRA, admitted to ICU. Cefepime is continued. Blood cultures are pending. MRSA nares pending. PG Care Time/CCT Total # of Minutes Spent Total Time Spent with Patient: Total time spent is greater than 50% in coordination of care (as documented) at patient's floor/unit and/or counseling patient: [place] [address] INT INP/OBS CARE 3/75MIN Patient Type Established Medical Decision Making High Complexity Diagnoses Hypotension I95.9 Sepsis A41.9 JEREL (acute kidney injury) N17.9 Hypomagnesemia E83.42 Diarrhea R19.7 Diarrhea type: unspecified type Sleep apnea G47.30 CLL (chronic lymphocytic leukemia) C91.90 (5) Diarrhea Diarrhea type: unspecified type Qualified Code(s): R19.7 - Diarrhea, unspecified
--- NOTE | 2024-04-20 17:21 | CT Scan Report ---
EXAM: CT Abdomen and Pelvis Without Intravenous Contrast INDICATION: Nausea, diarrhea and weakness. TECHNIQUE: Axial computed tomography images of the abdomen and pelvis without intravenous contrast. Sagittal and coronal reformatted images were created and reviewed. This CT exam was performed using one or more of the following dose reduction techniques: automated exposure control, adjustment of the mA and/or kV according to patient size, and/or use of iterative reconstruction technique. COMPARISON: 01/05/2024 FINDINGS: Limitations: None. Lung bases: No abnormality noted. Pleural space: No visualized pleural effusion or pneumothorax. Heart: No abnormality noted. Mediastinum: No abnormality noted. ABDOMEN: Liver: Lack of intravenous contrast limits detection of some masses. No abnormality noted. Gallbladder and bile ducts: The gallbladder is dilated and contains mild layering sludge. No calcified stones visible. No ductal dilatation or calcification. Pancreas: No pancreatic mass, calcification, inflammation or ductal dilation noted. Spleen: No significant abnormality noted. Adrenals: No significant abnormality noted. Kidneys and ureters: No abnormality noted. No stones. No hydronephrosis. No significant perinephric fluid. Stomach and bowel: Mild air-fluid level throughout the colon. No intestinal obstruction. No segmental thickening. PELVIS: Appendix: Well seen and appears normal. Bladder: Appears normal for the degree of filling. No stones or inflammation. No large mass. Masses may not be detected in the absence of opacification. Reproductive: No abnormalities noted. ABDOMEN and PELVIS: Intraperitoneal space: No free air. No significant fluid collection. Bones/joints: See below. Soft tissues: No significant abnormality noted. Vasculature: No abdominal aortic aneurysm. Lymph nodes: Stable iliac, mesenteric and retroperitoneal adenopathy with nodes measuring up to 2.0 cm short axis dimension. IMPRESSION: 1. Fluid layers in the colon most typical of colonic ileus or any diarrhea causing disease. There is no intestinal obstruction or focal inflammatory process. 2. Dilated gallbladder with mild sludge. If there is need for further radiologic evaluation, sonography is the modality of choice. 3. Stable adenopathy. ACT 112: Negative or not required by law. Electronically signed by Mayda Robledo 04-20-2024 5:21 PM
[2024-04-20 17:22] LABS: INR 1.1 (0.9-1.1); Partial Thromboplastin Ratio 1.4; Partial Thromboplastin Time 37 Seconds (21-31); Prothrombin Time 12.3 Seconds (9.0-12.0)
[2024-04-20] MEDS: CEFEPIME 2000MG 2,000 MG/20 ML SYR IV STA (17:37)
[2024-04-20] MEDS: MoRPHine SULFATE 4 MG/ML 1 ML CARP\\VIAL IV STA (17:38)
[2024-04-20] MEDS: MAGNESIUM SULFATE / D5W 1 GM/100 ML BAG IV STA (17:41)
[2024-04-20] MEDS: HYDROCORTISONE SOD SUCCINATE 100 MG/2 ML VIAL IV STA (17:43)
[2024-04-20 17:45] LABS: Basophils # (auto) 0.03 K/uL (0.00-0.20); Basophils % (auto) 0.6 %; Echinocytes 1+; Eosinophils # (auto) 0.53 K/uL (0.00-0.50); Eosinophils % (auto) 10.8 %; Immature Granulocytes # (auto) 0.03 K/uL (0.01-0.20); Immature Granulocytes % (auto) 0.6 %; Lymphocytes # (auto) 1.66 K/uL (1.20-3.40); Lymphocytes % (auto) 33.7 %; Monocytes # (auto) 0.89 K/uL (0.11-0.59); Monocytes % (auto) 18.1 %; Neutrophils # (auto) 1.78 K/uL (1.40-6.50); Neutrophils % (auto) 36.2 %
[2024-04-20] MEDS ORDERED: STAT IV Infusion **Titration per Protocol STA (19:32)
[2024-04-20] MEDS: NOREPINEPHRINE/D5W 4 MG/250 ML PLCT IV SCH (19:40)
--- NOTE | 2024-04-20 19:40 | Billing Data ---
Date of Service April 20, 2024 Coding Level of Care Code 20809 CRITICAL CARE 1ST 30-74M Time Spent (min) 35 Comment Hypotension/Sepsis, initiation of vasopressors. In addition to all other care
[2024-04-20] MEDS: LACTATED RINGER'S 1,000 ML IV SCH (19:55)
[2024-04-20] MEDS: CALCIUM GLUCONATE 1,000 MG/60 ML BAG IV STA (19:56)
[2024-04-20] MEDS: MAGNESIUM SULFATE / D5W 1 GM/100 ML BAG IV SCH (19:56)
--- NOTE | 2024-04-20 20:02 | Critical Care Consultation ---
Date of Consultation April 20, 2024 Assessment & Plan (1) Shock: (2) ARF (acute renal failure): (3) Hypomagnesemia: (4) Diarrhea: (5) Sleep apnea: (6) DMII (diabetes mellitus, type 2): Plan Reason Critically Ill: 58 YOF presents with diarrheal illness and hypotension, requiring stress dose steroids and vasoactive medications after not responding to multiple fluid boluses. Neuro - No acute needs CAM ICU: Negative Cardiac - Shock- unspecified - Shock - hypovolemic or distributive or combination of these as well as relative adrenal insufficiency - Patient is without leukocytosis, neutropenia or elevated NLR ratio. She does however have a PCT of 2 - Possible source- GI - obtain ultrasound of gallbladder - She is with organ dysfunction of the kidneys- recheck lactate, bmp and PH on arrival - Follow hemodynamics/perfusion with UO and POCUS if needed - Received 4L crystalloid- Continue with isotonic bicarb infusion overnight or ringers lactate - Continue with Cefepime at this time and await culture data - No CP - ECG NSR no ST elevations Respiratory - LAINE - CPAP at night GI - Diarrheal illness - Cdiff negative - No colitis noted on CT abd/pelvis, however notes mild air fluid levels without obstruction or inflammatory process - Stools noted as black per patient- will place on BID PPI at this time- trend HGB levels RENAL/LYTES - Acute renal failure, electrolyte disturbances - ARF - mcfarland placed as she has not voided - 350ml out - non-oliguric at this time - hopeful that ARF is secondary to hypovolemia and will respond to fluid resuscitation and BP support - Consider nephrology consultation if no improvement or worsening in am. - Hold NORM/ARB - Potassium stable - replete Phos and Mag - No acute needs ENDO - DMII/insulin resistance - BG checks while on steroids- Goal <180mg/DL HEME - As above follow HGB ID - Hypotensive however without tachycardia and without leukocytosis or tachypnea - source possible GI - Evaluate gallbladder with ultrasound- however LFTS and ALKPO4 normal - Cover empirically with Cefepime at this time - Diarrheal illness possible bacterial vs. viral- stool culture pending being sent - UA pending - Blood cx pending LINES/IV ACCESS - PIV, Mediport Left SCL Continue use of these lines - may need arterial line and mcfarland catheter DVT PROPHYLAXIS - SCDS, Heparin 7500 units q8 secondary to obesity and renal function DISPO: ICU while on vasoactive medications. I have personally spent 45 minutes of critical care time in the direct management of this patient. This is a life/limb threatening event. This includes time spent evaluating patient, direct bedside care, chart review, placing orders, interpretation of diagnostic studies, discussion with consultants, patient, and family members, as well as other required patient management activities. This time is exclusive of all separately billable procedures, and teaching time and separate from and in addition to any other critical care service time. Thank you for allowing us to participate in the care of this patient. Please refer to my attending physician's documentation for any further recommendations. History of Present Illness Reason for Consultation: Shock requiring vasopressors Requesting Physician: Jaime Dewitt MD Attending Physician: Jaime Dewitt MD History of Present Illness 58 YOF with medical history of: Small Lymphocytic Lymphoma- Stage IV (started new chemo regime in Mar), HTN< LAINE, DM. Patient came from [facility] for evalution of diarrhea and dizziness. Patient reports that for the past 5-6 days she has been having diarrhea, some chills, and myalgias. She reports this following treatment last Wednesday. Her stools have been all liquid and initially started of green, and then progressed to black. She reports that this has been in associated with some bloating and mild abdominal cramping. She reports that she is without n/v or epigastric pain, she also denies any fank blood noted. In the ER she had CXR completed and CT abdomen and pevlis completed. Imaging noted thickened gallbladder and distended however without evidence of stones, also no note of a colits. Her labs revealed elevation of DIRECTOR OF MEDICAL REVIEW to 4.46, HCO3 of 20, lactate negative, as well as random cortisol of 15. Hospitalist service continued resuscitation - she has received 4L of crystalloids, load of hydrocortisone and calcium. She continued to remain hypotensive and is now requiring Vasopressor agents to maintain MAPS >65. Patient evaluated while in the ER. She is without abdominal pain and in no distress. She has not urinated since arrival to the ER. Patient will be admitted to ICU to continue with vasopressor support, continue volume resuscitation, and continue infectous workup. CODE: FULL Allergies Allergy/AdvReac Type Severity Reaction Status Date / Time meperidine AdvReac Intermediate LOSS OF Verified 03/15/24 11:38 MEMORY procaine AdvReac Mild INEFFECTIVE Verified 03/15/24 11:38 Home Medications Medication Instructions Recorded Confirmed Type aspirin 81 mg chewable tablet 81 mg PO QAM 11/24/18 04/20/24 History cetirizine 10 mg tablet 10 mg PO QAM PRN Allergy Symptoms 11/24/18 04/20/24 History furosemide 20 mg tablet 20 mg PO QAM 11/24/18 04/20/24 History losartan 25 mg tablet 25 mg PO QAM 05/29/21 04/20/24 History metoprolol tartrate 25 mg tablet 12.5 mg PO BID 05/29/21 04/20/24 History famotidine 20 mg tablet (Pepcid) 20 mg PO HS PRN Other 04/27/22 04/20/24 History pantoprazole 40 mg tablet,delayed 40 mg PO QAM 08/18/22 04/20/24 History release Cleavers 20 ml PO QAM 03/01/24 04/20/24 History Ringgold Tail 20 ml PO QAM 03/01/24 04/20/24 History turmeric 1 cap PO BID 03/01/24 04/20/24 History allopurinol 300 mg tablet 300 mg PO PM 04/20/24 04/20/24 History ondansetron HCl 8 mg tablet 8 mg PO DIRECTED PRN n/v 04/20/24 04/20/24 History prochlorperazine maleate 10 mg 10 mg PO DIRECTED PRN n/v 04/20/24 04/20/24 History tablet venetoclax 10 mg (14)-50 mg 1 ea PO UD 04/20/24 04/20/24 History (7)-100 mg (21) tablets in a dose pack (Venclexta Starting Pack) Patient History Medical History Insulin resistance patient states no meds any longer and "not diabetic" History of bronchitis Hypertension Sleep apnea CPAP CLL (chronic lymphocytic leukemia) History of COVID-19 hx 03/2021--mild symptoms, no symptoms now Osteoarthritis Fatty liver GERD (gastroesophageal reflux disease) IBS (irritable bowel syndrome) Hearing deficit Migraine SOB (shortness of breath) on exertion Aortic aneurysm MONITORING - following W/ DR. Carias- "measuring up to 4.2 cm in diameter" per chest CT 04/2021 [place] Cardiac murmur No murmur on exam per 05/28/21 general surgery note Surgical History Port-A-Cath in place (06/02/21) Insertion Access Port with Fluoroscopy(Left) - Cristobal Mina DO, FACS 06/02/2021 pt states it is a power port History of bone marrow biopsy History of lymph node excision CERVICAL History of surgery REMOVAL OF BENIGN GROWTH FROM RLE History of tonsillectomy History of tubal ligation Family History Mother Heart disease Family history of reaction to anesthesia PONV Cancer Hypertension Mother Family history of diabetes mellitus Grandmother Family history of diabetes mellitus Heart disease Cancer Hypertension Social History Smoking Status: Former smoker Tobacco Type: Cigarettes Cigarettes Per Day: quit in college; Second Hand Exposure: No; Do You Dip or Chew Tobacco: No (smoked lightly in college); Tobacco Cessation Education Requested by Patient: No Hx Alcohol Use: Yes Alcohol type: wine Alcohol Intake Frequency: Monthly or Less Alcohol Intake Frequency Comment: holidays Hx Substance Use: No Preferred Language: Cypriot Communication Ability: Effective Drosser Required: No Beliefs That Will Affect Care: None marital status: Current Living Situation: Spouse current occupational status: employed 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 How many Children do You have: 6 Other Information That Helps Us Care for You: No Feels Safe at Home: Yes Safety Concerns: Feels Safe At This Time during the past year weight has: increased > 10 lbs Assistive Devices: None Review of Systems Review of Systems: REVIEW OF SYSTEMS: Constitutional: (+) fever, sweats or chills Eyes: No diplopia, no worsening or blurred vision ENT: normal hearing, no trouble swallowing Respiratory: No cough, sputum, dyspnea at rest or on exertion Cardiovascular: (+) Dizziness, No chest pain, tightness or palpitations Abdomen: (+) diarrhea, nausea, nausea, No pain, vomiting, or constipation Musculoskeletal: No joint pain, calf pain, swelling Neurologic: No weakness, numbness/tingling, or balance problems Skin: No rash or itch Physical Exam Physical Exam: PHYSICAL EXAM: General: awake, alert, no apparent distress Head: Normocephalic, atraumatic ENT: PERRLA, EOMI, no pharyngeal exudate, mucous membranes moist Neuro: AAO x 3, speech clear and appropriate, strength intact bilaterally 5/5, sensation intact and equal all extremities and dermatomes, no pronator drift Chest: equal rise and fall of the chest, no accessory muscle use, no heaves or thrills, Clear to auscultation, on room air, Cardiac: Regular rate and rhythm, telemetry reviewed, skin warm dry, cap refill <3 seconds, peripheral pulses +2 no JVD, no murmur, no edema GI: NABS x 4 quadrants, soft, nontender to palpation, no rebound, guarding or tenderness : Awaiting urine sample Extremities: Normal inspection, no peripheral edema or erythema, calfs nontender to palpation Psych: Normal mood and affect Skin: no rash or erythema Results & Data Results & Data Vital Signs (Past 12 Hours) Vital Signs Temp Pulse Pulse Resp BP BP Pulse Ox 04/20/24 19:40 75/48 L 04/20/24 19:39 84 13 73/46 L 94 04/20/24 19:36 73/46 L 04/20/24 19:30 97/59 L 04/20/24 19:26 68/42 L 04/20/24 19:17 85 16 93 04/20/24 19:10 94/61 L 04/20/24 19:08 82 15 94 04/20/24 19:05 89/57 L 04/20/24 19:02 81 17 97 04/20/24 19:00 94/58 L 04/20/24 19:00 94/58 L 04/20/24 19:00 83 15 98 04/20/24 18:55 91/57 L 04/20/24 18:53 82 15 95 04/20/24 18:50 85/55 L 04/20/24 18:50 85/55 L 04/20/24 18:50 85/55 L 04/20/24 18:50 85/55 L 04/20/24 18:45 95/56 L 04/20/24 18:41 81 15 96 04/20/24 18:40 88/56 L 04/20/24 18:40 88/56 L 04/20/24 18:38 83 17 97 04/20/24 18:35 83 22 98 04/20/24 18:25 91/58 L 04/20/24 18:17 85 13 98 04/20/24 18:15 99/60 L 04/20/24 18:11 99/55 L 04/20/24 18:08 85 16 94 04/20/24 18:05 85/61 L 04/20/24 18:05 85/61 L 04/20/24 18:05 82 20 98 04/20/24 18:02 83 15 99 04/20/24 18:00 105/60 04/20/24 18:00 105/60 04/20/24 17:50 88 13 96 04/20/24 17:50 88/55 L 04/20/24 17:38 84 19 99 04/20/24 17:35 87 16 81/58 L 96 04/20/24 17:32 83 13 79/53 L 97 04/20/24 17:25 86 18 99/57 L 97 04/20/24 17:12 90 20 74/36 L 94 04/20/24 17:03 04/20/24 16:39 91 H 04/20/24 16:01 36.8 C 90 18 75/57 L 97 O2 Del Method 04/20/24 19:40 04/20/24 19:39 Room Air 04/20/24 19:36 04/20/24 19:30 04/20/24 19:26 04/20/24 19:17 04/20/24 19:10 04/20/24 19:08 Room Air 04/20/24 19:05 04/20/24 19:02 04/20/24 19:00 04/20/24 19:00 04/20/24 19:00 04/20/24 18:55 04/20/24 18:53 04/20/24 18:50 04/20/24 18:50 04/20/24 18:50 04/20/24 18:50 04/20/24 18:45 04/20/24 18:41 04/20/24 18:40 04/20/24 18:40 04/20/24 18:38 Room Air 04/20/24 18:35 04/20/24 18:25 11/21/24 18:17 04/20/24 18:15 04/20/24 18:11 04/20/24 18:08 04/20/24 18:05 04/20/24 18:05 04/20/24 18:05 04/20/24 18:02 04/20/24 18:00 04/20/24 18:00 04/20/24 17:50 04/20/24 17:50 04/20/24 17:38 Room Air 04/20/24 17:35 Room Air 04/20/24 17:32 Room Air 04/20/24 17:25 Room Air 04/20/24 17:12 04/20/24 17:03 Room Air 04/20/24 16:39 04/20/24 16:01 Room Air Laboratory Results Abnormal lab results 04/20/24 Range/Units 16:25 Ed[place]on # (Auto) 0.89 H (0.11-0.59) K/uL Eos # (Auto) 0.53 H (0.00-0.50) K/uL PT 12.3 H (9.0-12.0) Seconds APTT 37 H (21-31) Seconds Carbon Dioxide 20 L (21-32) mmol/L Anion Gap 12 H (3-11) BUN 33 H (6-23) mg/dl Creatinine 4.46 H (0.6-1.2) mg/dl BUN/Creatinine Ratio 7.4 L (10-20) Glucose 102 H (70-99(Fasting)) mg/dl Magnesium 1.4 L (1.7-2.4) mg/dl Procalcitonin 2.14 H (0-0.5) ng/ml Diagnostic Findings Abdomen/Pelvis CT 04/20/24 16:13 EXAM: CT Abdomen and Pelvis Without Intravenous Contrast INDICATION: Nausea, diarrhea and weakness. TECHNIQUE: Axial computed tomography images of the abdomen and pelvis without intravenous contrast. Sagittal and coronal reformatted images were created and reviewed. This CT exam was performed using one or more of the following dose reduction techniques: automated exposure control, adjustment of the mA and/or kV according to patient size, and/or use of iterative reconstruction technique. COMPARISON: 01/05/2024 FINDINGS: Limitations: None. Lung bases: No abnormality noted. Pleural space: No visualized pleural effusion or pneumothorax. Heart: No abnormality noted. Mediastinum: No abnormality noted. ABDOMEN: Liver: Lack of intravenous contrast limits detection of some masses. No abnormality noted. Gallbladder and bile ducts: The gallbladder is dilated and contains mild layering sludge. No calcified stones visible. No ductal dilatation or calcification. Pancreas: No pancreatic mass, calcification, inflammation or ductal dilation noted. Spleen: No significant abnormality noted. Adrenals: No significant abnormality noted. Kidneys and ureters: No abnormality noted. No stones. No hydronephrosis. No significant perinephric fluid. Stomach and bowel: Mild air-fluid level throughout the colon. No intestinal obstruction. No segmental thickening. PELVIS: Appendix: Well seen and appears normal. Bladder: Appears normal for the degree of filling. No stones or inflammation. No large mass. Masses may not be detected in the absence of opacification. Reproductive: No abnormalities noted. ABDOMEN and PELVIS: Intraperitoneal space: No free air. No significant fluid collection. Bones/joints: See below. Soft tissues: No significant abnormality noted. Vasculature: No abdominal aortic aneurysm. Lymph nodes: Stable iliac, mesenteric and retroperitoneal adenopathy with nodes measuring up to 2.0 cm short axis dimension. IMPRESSION: 1. Fluid layers in the colon most typical of colonic ileus or any diarrhea causing disease. There is no intestinal obstruction or focal inflammatory process. 2. Dilated gallbladder with mild sludge. If there is need for further radiologic evaluation, sonography is the modality of choice. 3. Stable adenopathy. ACT 112: Negative or not required by law. Electronically signed by Mayda Robledo 04-20-2024 5:21 PM Chest X-Ray 04/20/24 16:13 EXAM: Radiograph of the Chest 1 View INDICATION: Sepsis. TECHNIQUE: Frontal view of the chest. COMPARISON: 04/12/2024 FINDINGS: Lungs and pleural spaces: No consolidation or pulmonary edema. No pleural effusion or pneumothorax. Heart: Shape and configuration within normal limits allowing for technique. Mediastinum: Normal contour. Bones/joints: No fracture, erosion or dislocation. Soft tissues: No abnormality noted. No radiopaque foreign body noted. Tubes, lines and devices: Left internal jugular central venous catheter tip in the distal superior vena cava. Upper abdomen: No abnormality noted. IMPRESSION: 1. No acute cardiopulmonary disease. 2. Lines and tubes as above. ACT 112: Negative or not required by law. Electronically signed by Mayda Robledo 04-20-2024 5:16 PM Medications Administered Magnesium Sulfate/Dextrose (Magnesium Sulfate / D5w) 1 gm in 100 mls @ 50 mls/hr IV Q2H JOSE Stop: 04/20/24 22:44 Last Admin: 04/20/24 19:56 Dose: 50 mls/hr Documented By: MADELINE Lactated Ringer's (Lr) 1,000 mls @ 125 mls/hr IV .Q8H JOSE Stop: 04/21/24 11:14 Last Admin: 04/20/24 19:55 Dose: 125 mls/hr Documented By: MADELINE Norepinephrine Bitartrate (Levophed/D5w) 4 mg in 250 mls @ 25.144 mls/hr IV .Q9H57M JOSE; Protocol Stop: 05/20/24 19:44 Last Admin: 04/20/24 19:40 Dose: 0.05 mcg/kg/min, 25.1 mls/hr Documented By: KIMMIE Co-signed By: ORALIA Discontinued Medications Hydrocortisone Sodium Succinate (Hydrocortisone Sod Succinate 100 Mg/2 Ml Vial) 100 mg IV NOW STA Stop: 04/20/24 17:24 Last Admin: 04/20/24 17:43 Dose: 100 mg Documented By: JANINE Sodium Chloride (Nss) 1,000 mls @ 999 mls/hr IV .Q1H1M ONE Stop: 04/20/24 17:13 Last Infusion: 04/20/24 18:01 Dose: Infused Documented By: Admin: 04/20/24 17:00 Dose: 999 mls/hr Documented By: DUSTIN Sodium Chloride (Nss) 1,000 mls @ 999 mls/hr IV .Q1H1M ONE Stop: 04/20/24 18:00 Last Infusion: 04/20/24 18:19 Dose: Infused Documented By: Admin: 04/20/24 17:17 Dose: 999 mls/hr Documented By: AUNDREA Cefepime HCl (Maxipime 2000mg) 2,000 mg in 20 mls @ 5 mls/min IV NOW STA; Protocol Stop: 04/20/24 17:26 Last Admin: 04/20/24 17:37 Dose: 5 mls/min Documented By: JANINE Magnesium Sulfate/Dextrose (Magnesium Sulfate / D5w) 1 gm in 100 mls @ 100 mls/hr IV NOW STA Stop: 04/20/24 18:32 Last Infusion: 04/20/24 18:38 Dose: Infused Documented By: Admin: 04/20/24 17:41 Dose: 100 mls/hr Documented By: JANINE Sodium Chloride (Nss) 1,000 mls @ 999 mls/hr IV .Q1H1M ONE Stop: 04/20/24 18:33 Last Admin: 04/20/24 17:51 Dose: Not Given Documented By: JANINE Lactated Ringer's (Lr) 1,000 mls @ 999 mls/hr IV .Q1H1M ONE Stop: 04/20/24 18:58 Last Infusion: 04/20/24 18:39 Dose: Infused Documented By: Admin: 04/20/24 17:15 Dose: 999 mls/hr Documented By: AUNDREA Calcium Gluconate () 1,000 mg in 60 mls @ 240 mls/hr IV NOW STA Stop: 04/20/24 19:07 Last Infusion: 04/20/24 21:03 Dose: Infused Documented By: Admin: 04/20/24 19:56 Dose: 240 mls/hr Documented By: MADELINE Morphine Sulfate (Morphine Sulfate 4 Mg/Ml 1 Ml Carp\\Vial) 4 mg IV NOW STA Stop: 04/20/24 16:14 Last Admin: 04/20/24 17:38 Dose: Not Given Documented By: JANINE Ondansetron HCl (Ondansetron Inj 2 Mg/Ml 2 Ml Vial) 4 mg IV NOW STA Stop: 04/20/24 16:14 Last Admin: 04/20/24 17:02 Dose: 4 mg Documented By: DUSTIN Coding Level of Care Code 72335 CRITICAL CARE 1ST 30-74M Diagnoses Shock R57.9 ARF (acute renal failure) N17.9 Hypomagnesemia E83.42 Diarrhea R19.7 Diarrhea type: unspecified type Sleep apnea G47.30 DMII (diabetes mellitus, type 2) E11.9 (4) Diarrhea Diarrhea type: unspecified type Qualified Code(s): R19.7 - Diarrhea, unspecified
[2024-04-20] MEDS ORDERED: ACETAMINOPHEN 325 MG TAB PO PRN (21:28)
[2024-04-20] MEDS ORDERED: CETIRIZINE HCL 10 MG TABLET PO PRN (21:28)
[2024-04-20] MEDS ORDERED: FAMOTIDINE 20 MG TAB PO PRN (21:28)
[2024-04-20] MEDS ORDERED: HEPARIN SOD 5,000 UNIT/0.5 ML VIAL SQ SCH (22:00)
[2024-04-20 22:07] LABS: HCO3 VBG 19 mmol/L; Oxygen Saturation VBG 62.2 %; PCO2 VBG 37 mmHg (38-50); PO2 VBG 37 mmHg; pH VBG 7.31 (7.36-7.41)
[2024-04-20 22:16] LABS: Appearance Urine Clear (Clear); Bilirubin Urine Negative (Negative); Blood Urine Negative (Negative); Color Urine Yellow; Glucose Urine UA Negative (Negative); Ketones Urine Negative (Negative); Leukocyte Esterase Urine Negative (Negative); Nitrite Urine Negative (Negative); Protein Urine Negative (Negative); Specific Gravity Urine 1.008 (1.000-1.030); Urobilinogen Urine Negative (Negative)
[2024-04-20] MEDS: NOREPINEPHRINE/D5W 4 MG/250 ML IV ONE (22:18)
[2024-04-20] MEDS: allopurinoL 300 MG TAB PO SCH (22:24)
[2024-04-20 22:36] LABS: BUN Creatinine Ratio 8.2 (10-20); Calcium 8.6 mg/dl (8.6-10.3); Creatinine Clr Calc Pharmacy 20.4 ml/min; Potassium 3.8 mmol/L (3.5-5.1)
[2024-04-20] MEDS ORDERED: CEFEPIME 2000MG 2,000 MG/20 ML SYR IV SCH (23:30)
[2024-04-20] MEDS: PANTOprazole 40 MG/10 ML SYR IV ONE (23:31)
[2024-04-20] MEDS: HEPARIN SOD 5,000 UNIT/0.5 ML VIAL SQ SCH (23:31)
[2024-04-20] MEDS: HYDROCORTISONE SOD SUCCINATE 100 MG/2 ML VIAL IV ONE (23:31)
--- NOTE | 2024-04-21 00:23 | Ultrasound Report ---
Exam(s): US GALLBLADDER EXAM: US Abdomen Limited, Gallbladder CLINICAL HISTORY: Reason for exam: distended gallbladder- sirs/sepsis. TECHNIQUE: Real-time ultrasound of the right upper quadrant with image documentation. COMPARISON: CT scan from April 20, 2024 FINDINGS: Liver: There is fatty infiltration of the liver. No focal liver lesion is seen. The portal vein is patent with normal hepatopetal flow. The liver is enlarged measuring 18.4 cm. Gallbladder: The gallbladder is fully distended but nondilated. There is a small amount of sludge in the gallbladder. No shadowing stones are visible. The wall thickness is normal. No surrounding fluid. Common bile duct: The common bile duct is nondilated measuring less than 2 mm. Pancreas: The visualized portion of the pancreas is unremarkable. The pancreatic duct is nondilated measuring 1-2 mm. Right kidney: Unremarkable. No stones. No hydronephrosis. The right kidney measures 9.5 cm. Inferior vena cava: The IVC is unremarkable. IMPRESSION: The gallbladder is fully distended but nondilated. There is a small amount of sludge in the gallbladder. No shadowing stones are visible. The wall thickness is normal. No surrounding fluid. Sonographic Jensen sign is negative. Electronically signed by: Regan Branham MD 04/21/24 00:22 AM
[2024-04-21] MEDS: MAGNESIUM SULFATE / D5W 1 GM/100 ML BAG IV SCH (00:38)
[2024-04-21] MEDS ORDERED: HYDROCORTISONE SOD SUCCINATE 100 MG/2 ML VIAL IV SCH (02:00)
[2024-04-21] MEDS: CEFEPIME 1000MG 1,000 MG/10 ML SYR IV SCH (04:12)
[2024-04-21 05:23] LABS: Hematocrit (blood only) 31.4 % (37.0-47.0); Hemoglobin 10.3 g/dl (12.0-16.0); Mean Corpuscular Hemoglobin 28.1 pg (25.0-34.0); Mean Corpuscular Hgb Conc 32.8 g/dL (32.0-36.0); Mean Corpuscular Volume 85.6 fL (80.0-100.0); Mean Platelet Volume 9.7 fL (9.4-12.4); Platelet Count 158 K/uL (130-400); RDW Coefficient of Variation 14.5 % (11.5-14.5); Red Blood Count 3.67 M/uL (4.20-5.40); White Blood Count 3.62 K/ul (4.8-10.8)
[2024-04-21 05:42] LABS: Basophils # (auto) 0.02 K/uL (0.00-0.20); Basophils % (auto) 0.6 %; Calcium 8.5 mg/dl (8.6-10.3); Dohle Bodies 1+; Echinocytes 1+; Eosinophils # (auto) 0.28 K/uL (0.00-0.50); Eosinophils % (auto) 7.7 %; Immature Granulocytes # (auto) 0.01 K/uL (0.01-0.20); Immature Granulocytes % (auto) 0.3 %; Lymphocytes % (auto) 27.6 %; Magnesium 2.3 mg/dl (1.7-2.4); Monocytes # (auto) 0.42 K/uL (0.11-0.59); Monocytes % (auto) 11.6 %; Neutrophils # (auto) 1.89 K/uL (1.40-6.50); Neutrophils % (auto) 52.2 %; Polychromasia 1+; Potassium 3.9 mmol/L (3.5-5.1)
[2024-04-21 05:48] LABS: BUN Creatinine Ratio 9.2 (10-20); Creatinine Clr Calc Pharmacy 22.9 ml/min; Phosphorus 5.4 mg/dl (2.5-4.9)
[2024-04-21] MEDS: HYDROCORTISONE SOD 50 MG in SYRINGE 0 ML IV SCH (06:23)
[2024-04-21] MEDS ORDERED: ICU Protocol for HYPERglycemia SCH (07:30)
[2024-04-21] MEDS ORDERED: HEPARIN SOD 5,000 UNIT/0.5 ML VIAL SQ SCH (09:00)
--- NOTE | 2024-04-21 09:03 | Critical Care Progress Note ---
Date of Service April 21, 2024 Assessment & Plan (1) Shock: (2) ARF (acute renal failure): (3) Hypomagnesemia: (4) Diarrhea: (5) Sleep apnea: (6) DMII (diabetes mellitus, type 2): Plan Reason Critically Ill: 58 YOF presents with diarrheal illness and hypotension, requiring stress dose steroids and vasoactive medications after not responding to multiple fluid boluses. Neuro - No acute needs CAM ICU: Negative Cardiac - - Shock - Hypovolemic or distributive or combination of these as well as relative adrenal insufficiency -Has been having diarrhea for a while - Continue with Cefepime at this time and await culture data - ECG NSR no ST elevations Respiratory - LAINE - CPAP at night GI - Diarrheal illness - C diff negative - No colitis noted on CT abd/pelvis, however notes mild air fluid levels without obstruction or inflammatory process - Stools noted as black per patient- will place on BID PPI at this time- trend HGB levels Denies taking any iron supplements RENAL/LYTES - Acute renal failure, electrolyte disturbances -- ARF Monitor BUN/creatinine Avoid nephrotoxic medications Strict ins and outs - No acute needs ENDO - DMII/insulin resistance - BG checks while on steroids- Goal <180mg/DL HEME - -- CLL Diagnosed 2016 On immunotherapy Last dose was 2 weeks ago ID - -- Shock Etiology is not clear right now UA clean, does have diarrheal illness, C. difficile was - 04/20/2024 Nasal MRSA negative Right upper quadrant ultrasound shows small amount of sludge in the gallbladder but not dilated, patient does not have Jensen sign AST/ALT/alk phos within normal limit Continue with antibiotics empiric for the time being --Prophylaxis VTE: Heparin on hold GI: Pantoprazole Lines: Left-sided port, peripheral Diet: Clear liquid, advance as tolerated to renal diet Plan: In/out: +4.3 L, urine output 676 Patient has been off vasopressors for more than 12 hours Will decrease the IV fluid rate to 80 mL an hour and complete the bag Continue with hydrocortisone for the time being along with empiric antibiotics Continue with pantoprazole given the dark stools, patient does state that she uses ibuprofen on an as-needed basis Heparin on hold till we rule out GI bleed. Hemodynamically stable to be downgrade to medical floor Please note the above document was generated using voice recognition software. It may contain grammatical, syntax or spelling errors.Any formal questions or concerns about the content, text or information contained within the body of this dictation should be directly addressed to the provider for clarification. Admission and Anticipated Discharge Date Admission Date: April 20, 2024 Subjective Patient seen and examined at bedside. No acute distress, no adverse events overnight Her systolic blood pressure was in the high 100s, MAP was in the 70s at the time of examination Not any respiratory distress, saturation was 94-95% on room air Denied any nausea vomiting Mild epigastric tenderness. Had 1 bowel movement since coming to the hospital which was dark and watery. Denies any dysuria. Review of Systems 2 Review of Systems: All systems reviewed & are unremarkable except as noted in Subjective Physical Exam 2 Physical Exam: Constitutional: No acute distress HEENT: EOMI, PERRLA Respiratory system: Good air entry bilaterally, no wheeze, no rhonchi, no crackles CVS: S1-S2 positive, no murmurs or gallops Abdomen: Soft, nontender, nondistended, positive bowel sounds x4, obese Extremities: +2 pulses bilaterally radialis/ dorsalis pedis, no cyanosis, no edema Neuro: Awake alert oriented x3 Psych: Normal mood and affect G/U: No Chen Skin: no rashes, warm and dry Lymphatic: no cervical or axillary lymphadenopathy Results & Data Results & Data Vital Signs (Past 12 Hours) Vital Signs Temp Pulse Resp BP Pulse Ox O2 Del Method O2 Del Method 04/21/24 07:41 Room Air 04/21/24 07:41 Room Air 04/21/24 07:38 80 04/21/24 06:09 76 13 115/61 94 04/21/24 05:51 74 12 94 04/21/24 05:00 73 12 95 04/21/24 05:00 95/61 L 04/21/24 04:17 36.6 C 04/21/24 04:03 74 14 103/78 96 04/21/24 03:57 72 14 95 04/21/24 03:39 86 13 92 04/21/24 03:03 79 14 96 04/21/24 03:01 88/62 L 04/21/24 02:45 78 13 95 04/21/24 02:01 86/64 L 04/21/24 02:00 83 13 88 L 04/21/24 01:24 82 13 94 11/22/24 01:00 116/77 04/21/24 00:57 84 16 96 04/21/24 00:51 86 16 94 04/21/24 00:06 89 17 94 04/20/24 23:33 97 H 16 95 04/20/24 23:09 36.9 C 84 15 101/70 95 04/20/24 23:03 84 20 96 04/20/24 22:57 36.9 C 88 15 95 04/20/24 22:45 37.0 C 83 16 95 04/20/24 22:00 130/67 04/20/24 21:45 86 27 H 96 04/20/24 21:28 Room Air 04/20/24 21:05 80 16 92 04/20/24 21:05 107/63 04/20/24 21:05 107/63 04/20/24 21:00 92/68 L 04/20/24 21:00 92/68 L FiO2 04/21/24 07:41 04/21/24 07:41 04/21/24 07:38 04/21/24 06:09 04/21/24 05:51 04/21/24 05:00 04/21/24 05:00 04/21/24 04:17 04/21/24 04:03 04/21/24 03:57 04/21/24 03:39 21 04/21/24 03:03 04/21/24 03:01 04/21/24 02:45 04/21/24 02:01 04/21/24 02:00 04/21/24 01:24 04/21/24 01:00 04/21/24 00:57 04/21/24 00:51 04/21/24 00:06 04/20/24 23:33 04/20/24 23:09 04/20/24 23:03 21 04/20/24 22:57 04/20/24 22:45 04/20/24 22:00 04/20/24 21:45 04/20/24 21:28 04/20/24 21:05 04/20/24 21:05 04/20/24 21:05 04/20/24 21:00 04/20/24 21:00 Laboratory Results 04/21/24 04:08 04/21/24 04:08 Coding Level of Care Code 04195 SUB INP/OBS CARE 3/50MIN Diagnoses Shock R57.9 ARF (acute renal failure) N17.9 Hypomagnesemia E83.42 Diarrhea R19.7 Diarrhea type: unspecified type Sleep apnea G47.30 DMII (diabetes mellitus, type 2) E11.9 (4) Diarrhea Diarrhea type: unspecified type Qualified Code(s): R19.7 - Diarrhea, unspecified
[2024-04-21] MEDS: ASPIRIN 81 MG CHEW PO SCH (09:11)
[2024-04-21] MEDS: PANTOprazole 40 MG/10 ML SYR IV SCH (09:12)
[2024-04-21] MEDS: 4.5GM X1 IV ONE (11:30)
--- NOTE | 2024-04-21 12:06 | Hospitalist Progress Note ---
Date of Service April 21, 2024 Assessment & Plan (1) Hypovolemic shock: Plan: Presented with severe hypotension (low 49/33) and diarrheal illness. Reported malaise x 1.5 weeks and severe diarrhea x 4 days. Suspect hypovolemic shock due to significant volume contraction in setting of GI losses - Initially admitted to ICU as patient required vasopressors and stress dose steroids after BP not improved after multiple IV boluses. Stable off vasopressors since ~0200 on 04/21 - Gallbladder US showed small amount of sludge; no concern for acute cholecystitis - CXR unremarkable - Clinically stabilized and transferred out of ICU - Random cortisol 15.75 (technically WNL, but would expect cortisol to be elevated given patient's stress/illness level) - C. diff negative, stool biofire negative, fecal occult negative, blood cultures negative x 24 hours - Continue hydrocortisone and wean off - Continue empiric abx but change to ZOsyn for GI source at this time - Continue pantoprazole (2) ARF (acute renal failure): Plan: Suspect prerenal etiology in the setting of GI losses and poor oral intake - Baseline Cr ~1.6; Cr 4.46 and non-oliguric on admission - No prior history of kidney stones or obstructions; only new medication is allopurinol, however this was started 04/03 and BMP was rechecked on 04/12 without changes. No stones noted on CT A/P this admission With associated metabolic acidosis - Provided aggressive fluid resuscitation - Repleted mag, augmented appropriately - Chen catheter initially placed for strict I&O monitoring, but removed due to intolerance - Urine output much improved - Cr improved to 3.70, continue to monitor - Avoid nephrotoxic agents when possible - Encourage PO fluid intake (3) Diarrhea: Plan: Severe diarrhea x 4 days prior to admission. Patient reported couple episodes of black bowel movements at home - C. difficile negative - Stool BioFire negative - Fecal occult negative - Discussed case with Dr. Conde (oncologist) who reports low suspicion for CMV colitis with the treatment regimen she is on - Diarrhea improving, loose brown bowel movements today - Consider Imodium if diarrhea continues Plan Discussed case with Dr Conde Downgraded off ICU Resume metoprolol Chronic stable issues: CLL/SLL: Follows with CCP LAINE: Continue CPAP at bedtime VTE PPx: Heparin 7500 units q12h resumed CODE STATUS: Full code Admission and Anticipated Discharge Date Admission Date: April 20, 2024 Supervising Physician Co-Signing Physician Notes PA Supervision Note: I did not personally see or examine the patient today, but I verified all james points of ULYSSES Salazar's assessment and plan with the following exceptions/additions: None Subjective Patient seen and evaluated in bedside chair in ICU. She notes that on 04/12, she had treatment #5 of new regimen for CLL/SLL. She started experiencing generalized malaise that evening. Then on 04/15, she attended a birthday alliance party with a lot of children there and her diarrhea began after that. It was initially green, then had episode of black diarrhea, and since has been brown. Her diarrhea was severe, noting constant liquid bowel movements requiring wearing Depends for sanitary reasons. Today she feels well, nearly at her baseline at this time. She reports her diarrhea has slowed down and is brown in color. Her malaise and brain fog have subsided. She reports her Chen catheter was removed due to discomfort and she has been urinating without difficulty since. We discussed downgrading to PCU. No additional complaints or concerns at this time. Physical Exam Physical Exam: General: No acute distress, nondiaphoretic, well-developed, well-nourished. Skin: The skin was without rashes, erythema, edema, or bruising. Cardiac: Regular rate and rhythm without murmurs gallops or rubs. Pulm: Clear to auscultation bilaterally without wheezes, rales or rhonchi. No respiratory distress. 96% on room air. Abdominal: Soft, nontender, nondistended. Bowel sounds present. : No Chen catheter. Neuro: A&O x3. No focal neurological deficits. Results & Data Results & Data Vital Signs (Past 12 Hours) Vital Signs Temp Pulse Resp BP Pulse Ox O2 Del Method FiO2 04/21/24 10:01 132/72 04/21/24 10:00 95 H 14 96 04/21/24 09:00 119/62 04/21/24 08:57 89 17 95 04/21/24 08:05 104/65 04/21/24 08:03 88 17 93 04/21/24 07:41 Room Air 04/21/24 07:41 Room Air 04/21/24 07:38 80 04/21/24 07:09 82 17 93 04/21/24 07:01 103/56 L 04/21/24 06:09 76 13 115/61 94 04/21/24 05:51 74 12 94 04/21/24 05:00 73 12 95 04/21/24 05:00 95/61 L 04/21/24 04:17 97.9 F 04/21/24 04:03 74 14 103/78 96 04/21/24 03:57 72 14 95 04/21/24 03:39 86 13 92 21 04/21/24 03:03 79 14 96 04/21/24 03:01 88/62 L 04/21/24 02:45 78 13 95 04/21/24 02:01 86/64 L 04/21/24 02:00 83 13 88 L 04/21/24 01:24 82 13 94 04/21/24 01:00 116/77 04/21/24 00:57 84 16 96 04/21/24 00:51 86 16 94 04/21/24 00:06 89 17 94 Laboratory Results Reviewed CBC Reviewed chemistries Reviewed stool BioFire Reviewed blood cultures PG Care Time/CCT Total # of Minutes Spent Total Time Spent with Patient: Total time spent is greater than 50% in coordination of care (as documented) at patient's floor/unit and/or counseling patient: Coding Level of Care Code 29794 SUB INP/OBS CARE 3/50MIN Diagnoses Hypovolemic shock R57.1 ARF (acute renal failure) N17.9 Diarrhea R19.7 Diarrhea type: unspecified type (3) Diarrhea Diarrhea type: unspecified type Qualified Code(s): R19.7 - Diarrhea, unspecified
--- NOTE | 2024-04-21 14:50 | Electrocardiogram Report ---
Test Reason : Blood Pressure : */* mmHG Vent. Rate : 91 BPM Atrial Rate : 91 BPM P-R Int : 182 ms QRS Dur : 114 ms QT Int : 344 ms P-R-T Axes : 42 9 2 degrees QTcB Int : 423 ms Normal sinus rhythm Low voltage QRS Poor R wave progression, consider anterior CO vs. lead placement vs. LVH Abnormal ECG When compared with ECG of 12-Apr-2024 10:18, Nonspecific T wave abnormality no longer evident in Anterior leads Confirmed by Michael Fish ([id number] on 04/21/2024 2:50:11 PM Referred By: REFERRED SELF Confirmed By: Michael Fish
[2024-04-21 15:10] LABS: Adenovirus F 40/41 PCR Not Detected (NotDetected); Astrovirus PCR Not Detected (NotDetected); Campylobacter PCR Not Detected (NotDetected); Cryptosporidium PCR Not Detected (NotDetected); Cyclospora cayetanensis PCR Not Detected (NotDetected); Entamoeba histolytica PCR Not Detected (NotDetected); Enteroaggregative E.coli(EAEC) Not Detected (NotDetected); Enteropathogenic E.coli (EPEC) Not Detected (NotDetected); Enterotoxigenic E.coli (ETEC) Not Detected (NotDetected); Giardia lamblia PCR Not Detected (NotDetected); Norovirus GI/GII PCR Not Detected (NotDetected); Plesiomonas shigelloides PCR Not Detected (NotDetected); Rotavirus A PCR Not Detected (NotDetected); Salmonella PCR Not Detected (NotDetected); Sapovirus PCR Not Detected (NotDetected); Shiga-like Toxin E.coli (STEC) Not Detected (NotDetected); Shigella/Enteroinvasive E.coli Not Detected (NotDetected); Vibrio cholerae PCR Not Detected (NotDetected); Vibrio species PCR Not Detected (NotDetected); Yersinia enterocolitica PCR Not Detected (NotDetected)
[2024-04-21] MEDS: ONDANSETRON INJ 2 MG/ML 2 ML VIAL IV PRN (17:34)
[2024-04-21] MEDS: 4.5GM EXT INFUSION IV SCH (17:38)
[2024-04-21] MEDS: METOPROLOL TARTRATE 25 MG TAB PO SCH (21:46)
[2024-04-21] MEDS: HEPARIN SOD 5,000 UNIT/0.5 ML VIAL SQ SCH (21:46)
[2024-04-22] MEDS: HYDROCORTISONE SOD 50 MG in SYRINGE 0 ML IV SCH (07:52)
[2024-04-22 08:10] LABS: Basophils # (auto) 0.02 K/uL (0.00-0.20); Basophils % (auto) 0.3 %; Eosinophils # (auto) 0.78 K/uL (0.00-0.50); Eosinophils % (auto) 12.3 %; Hematocrit (blood only) 31.2 % (37.0-47.0); Hemoglobin 10.3 g/dl (12.0-16.0); Immature Granulocytes # (auto) 0.03 K/uL (0.01-0.20); Immature Granulocytes % (auto) 0.5 %; Lymphocytes # (auto) 1.41 K/uL (1.20-3.40); Lymphocytes % (auto) 22.2 %; Mean Corpuscular Hemoglobin 28.5 pg (25.0-34.0); Mean Corpuscular Volume 86.2 fL (80.0-100.0); Mean Platelet Volume 9.7 fL (9.4-12.4); Monocytes # (auto) 0.91 K/uL (0.11-0.59); Monocytes % (auto) 14.3 %; Neutrophils # (auto) 3.21 K/uL (1.40-6.50); Neutrophils % (auto) 50.4 %; Platelet Count 194 K/uL (130-400); RDW Coefficient of Variation 14.5 % (11.5-14.5); RDW Standard Deviation 45.8 fL (36.4-46.3); Red Blood Count 3.62 M/uL (4.20-5.40); White Blood Count 6.36 K/ul (4.8-10.8)
[2024-04-22 08:33] LABS: BUN Creatinine Ratio 10.6 (10-20); Calcium 8.8 mg/dl (8.6-10.3); Creatinine Clr Calc Pharmacy 29.8 ml/min; Magnesium 2.1 mg/dl (1.7-2.4); Potassium 3.5 mmol/L (3.5-5.1)
[2024-04-22] MEDS: LOPERAMIDE HCL 2 MG CAP PO STA (09:24)
--- NOTE | 2024-04-22 11:51 | Hospitalist Progress Note ---
Date of Service April 22, 2024 Assessment & Plan (1) Hypovolemic shock: Plan: Presented with severe hypotension (low 49/33) and diarrheal illness. Reported malaise x 1.5 weeks and severe diarrhea x 4 days. Suspect hypovolemic shock due to significant volume contraction in setting of GI losses - Initially admitted to ICU as patient required vasopressors and stress dose steroids after BP not improved after multiple IV boluses, stabilized and downgraded off ICU 04/21 - Gallbladder US showed small amount of sludge; no concern for acute cholecystitis - CXR unremarkable - Random cortisol 15.75 (technically WNL, but would expect cortisol to be elevated given patient's stress/illness level) - C. diff negative, stool biofire negative, fecal occult negative, blood cultures negative x 24 hours - Continue hydrocortisone and wean off - Continue empiric Zosyn for GI source until blood cultures finalize - Continue pantoprazole (2) ARF (acute renal failure): Plan: ARK with associated metabolic acidosis on admission, suspect prerenal etiology in the setting of GI losses and poor oral intake - Baseline Cr ~1.6; Cr 4.46 and non-oliguric on admission - No prior history of kidney stones or obstructions; only new medication is allopurinol, however this was started 04/03 and BMP was rechecked on 04/12 without changes. No stones noted on CT A/P this admission - Provided aggressive fluid resuscitation - Repleted mag, augmented appropriately - Chen catheter initially placed for strict I&O monitoring, but removed due to intolerance - Urine output much improved - Cr improved to 2.82, continue to monitor - Avoid nephrotoxic agents when possible - Encourage PO fluid intake (3) Diarrhea: Plan: Severe diarrhea x 4 days prior to admission. Patient reported couple episodes of black bowel movements at home - C. difficile, Stool BioFire, Fecal occult negative - Diarrhea initially improved, but returned and frequent liquid BMs persist - Discussed case with Dr. Conde (oncologist) who reports low suspicion for CMV colitis with the treatment regimen she is on > Did formally consult oncology as diarrhea persisting with negative infectious workup and began shortly after treatment; appreciate evaluation and recommendations - Started/continue Imodium as needed for diarrhea - Continue pantoprazole, famotidine Of note, patient has never had colonoscopy screening - From reviewing past notes, it looks like she was set up with [facility] -- -will likely consult GI for immunotherapy-related colitis evaluation -awaiting Oncology input (4) Hypertension: Plan: Takes Losartan 25 mg daily, metoprolol 12.5 mg BID, and aspirin 81 mg daily at home - Losartan on hold due to ARF - Continue metoprolol and aspirin Reported occasional palpitations overnight 04/21 - Reviewed telemetry -- NSR with 1st degree block and occasional PVCs - No reported chest pain Plan Consulted oncology Ordered Imodium Reviewed telemetry Chronic stable issues: CLL/SLL: Follows with CCP LAINE: Continue CPAP at bedtime VTE PPx: Heparin 7500 units q12h resumed CODE STATUS: Full code Admission and Anticipated Discharge Date Admission Date: April 20, 2024 Supervising Physician Co-Signing Physician Notes PA Supervision Note: I did not personally see or examine the patient today, but I verified all james points of ULYSSES Salazar's assessment and plan with the following exceptions/additions: None Subjective Patient seen and evaluated at bedside. She states she feels like she is going backwards in her progress today as her diarrhea has returned. She had 5 episodes of liquid diarrhea between 0530 and 0900 this morning. She has noticed some improvement after taking Imodium. She notes mild abdominal cramping with her diarrhea episodes this morning, but denies any abdominal pain currently. Denies nausea or vomiting. She does report an enhanced sense of taste, which has been going on intermittently for years now though she is unsure why. We discussed her lab results from this morning. No additional complaints or concerns at this time. Physical Exam Physical Exam: General: No acute distress, nondiaphoretic, well-developed, well-nourished. Skin: The skin was without rashes, erythema, edema, or bruising. Port on left chest wall. Cardiac: Regular rate and rhythm without murmurs gallops or rubs. Pulm: Clear to auscultation bilaterally without wheezes, rales or rhonchi. No respiratory distress. 94% on room air. Abdominal: Soft, nontender, nondistended. Bowel sounds present. : No Chen catheter. Neuro: A&O x3. No focal neurological deficits. Results & Data Results & Data Vital Signs (Past 12 Hours) Vital Signs Temp Pulse Pulse Resp BP Pulse Ox O2 Del Method 04/22/24 09:29 102/67 04/22/24 07:03 97.3 F L 86 17 109/71 94 Room Air 04/22/24 03:49 86 15 92 04/22/24 03:49 90 15 96 BiPAP 04/22/24 03:20 98.2 F 86 18 121/65 92 BiPAP 04/22/24 00:22 83 25 H 91 FiO2 04/22/24 09:29 04/22/24 07:03 04/22/24 03:49 21 04/22/24 03:49 04/22/24 03:20 04/22/24 00:22 21 Laboratory Results Reviewed CBC Reviewed BMP Reviewed blood cultures PG Care Time/CCT Total # of Minutes Spent Total Time Spent with Patient: Total time spent is greater than 50% in coordination of care (as documented) at patient's floor/unit and/or counseling patient: Coding Level of Care Code 76050 SUB INP/OBS CARE 3/50MIN Diagnoses Hypovolemic shock R57.1 ARF (acute renal failure) N17.9 Diarrhea R19.7 Diarrhea type: unspecified type Hypertension I10 (3) Diarrhea Diarrhea type: unspecified type Qualified Code(s): R19.7 - Diarrhea, unspecified
[2024-04-22] MEDS: FAMOTIDINE 20 MG TAB PO SCH (13:29)
[2024-04-22] MEDS: HEPARIN 100 UNIT/ML 5ML FLUSH FLUSH PRN (21:13)
[2024-04-22] MEDS: LOPERAMIDE HCL 2 MG CAP PO PRN (21:58)
--- NOTE | 2024-04-23 06:03 | Oncology Consultation ---
Date of Consultation April 23, 2024 Assessment & Plan (1) Hypovolemic shock: (2) CLL (chronic lymphocytic leukemia): (3) Diarrhea: Plan -Based on history, suspect diarrhea may be due to obinutuzumab. Recommend checking calprotectin level on stool sample to evaluate for colitis. -Since she has never had a colonoscopy. Would recommend obtaining colonoscopy and upper endoscopy either inpatient/outpatient to evaluate for IBD -She is scheduled for treatment on Wednesday this week which I suspect to be delayed in order to rule out obinutuzumab induced colitis. -If diarrhea persists, recommend trial of Lomotil. She will continue follow-up with Dr. Conde upon discharge from hospital. Please feel free to call if you have any further questions. History of Present Illness Reason for Consultation: Diarrhea Attending Physician: Suni Munroe MD History of Present Illness 58-year-old female with history of SLL recently started on treatment with obinutuzumab on 03/29/2024 under the care of my colleague Dr. Conde. Subsequently developed significant diarrhea requiring ER evaluation and subsequent hospitalization in 04/20/2024. Was in hypovolemic shock and required multiple IV fluid boluses, steroids and vasoactive medications. She states that she is doing better. Still experiencing diarrhea although this is much better. Allergies Allergy/AdvReac Type Severity Reaction Status Date / Time meperidine AdvReac Intermediate LOSS OF Verified 03/15/24 11:38 MEMORY procaine AdvReac Mild INEFFECTIVE Verified 03/15/24 11:38 Home Medications Medication Instructions Recorded Confirmed Type aspirin 81 mg chewable tablet 81 mg PO QAM 11/24/18 04/20/24 History cetirizine 10 mg tablet 10 mg PO QAM PRN Allergy Symptoms 11/24/18 04/20/24 History furosemide 20 mg tablet 20 mg PO QAM 11/24/18 04/20/24 History losartan 25 mg tablet 25 mg PO QAM 05/29/21 04/20/24 History metoprolol tartrate 25 mg tablet 12.5 mg PO BID 05/29/21 04/20/24 History famotidine 20 mg tablet (Pepcid) 20 mg PO HS PRN Other 04/27/22 04/20/24 History pantoprazole 40 mg tablet,delayed 40 mg PO QAM 08/18/22 04/20/24 History release Cleavers 20 ml PO QAM 03/01/24 04/20/24 History Hannibal Tail 20 ml PO QAM 03/01/24 04/20/24 History turmeric 1 cap PO BID 03/01/24 04/20/24 History allopurinol 300 mg tablet 300 mg PO PM 04/20/24 04/20/24 History ondansetron HCl 8 mg tablet 8 mg PO DIRECTED PRN n/v 04/20/24 04/20/24 History prochlorperazine maleate 10 mg 10 mg PO DIRECTED PRN n/v 04/20/24 04/20/24 History tablet venetoclax 10 mg (14)-50 mg 1 ea PO UD 04/20/24 04/20/24 History (7)-100 mg (21) tablets in a dose pack (Venclexta Starting Pack) Patient History Medical History Insulin resistance patient states no meds any longer and "not diabetic" History of bronchitis Hypertension Sleep apnea CPAP CLL (chronic lymphocytic leukemia) History of COVID-19 hx 03/2021--mild symptoms, no symptoms now Osteoarthritis Fatty liver GERD (gastroesophageal reflux disease) IBS (irritable bowel syndrome) Hearing deficit Migraine SOB (shortness of breath) on exertion Aortic aneurysm MONITORING - following W/ DR. Carias- "measuring up to 4.2 cm in diameter" per chest CT 04/2021 [place] Cardiac murmur No murmur on exam per 05/28/21 general surgery note Surgical History Port-A-Cath in place (06/02/21) Insertion Access Port with Fluoroscopy(Left) - Cristobal Mina DO, FACS 06/02/2021 pt states it is a power port History of bone marrow biopsy History of lymph node excision CERVICAL History of surgery REMOVAL OF BENIGN GROWTH FROM RLE History of tonsillectomy History of tubal ligation Family History Mother Heart disease Family history of reaction to anesthesia PONV Cancer Hypertension Mother Family history of diabetes mellitus Grandmother Family history of diabetes mellitus Heart disease Cancer Hypertension Social History Smoking Status: Former smoker Tobacco Type: Cigarettes Cigarettes Per Day: quit in college; Second Hand Exposure: No; Do You Dip or Chew Tobacco: No (smoked lightly in college); Tobacco Cessation Education Requested by Patient: No Hx Alcohol Use: Yes Alcohol type: wine Alcohol Intake Frequency: Monthly or Less Alcohol Intake Frequency Comment: holidays Hx Substance Use: No Preferred Language: Trinidadian Communication Ability: Effective Coding Machine Operator Required: No Beliefs That Will Affect Care: None marital status: Current Living Situation: Spouse current occupational status: employed 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 How many Children do You have: 6 Other Information That Helps Us Care for You: No Feels Safe at Home: Yes Safety Concerns: Feels Safe At This Time during the past year weight has: increased > 10 lbs Assistive Devices: None Results & Data Vital Signs (Past 12 Hours) Vital Signs Temp Pulse Pulse Resp BP Pulse Ox O2 Del Method 04/23/24 05:12 73 04/23/24 03:49 77 13 94 04/23/24 03:19 36.7 C 83 15 100/63 96 BiPAP 04/22/24 23:47 36.6 C 71 15 110/73 94 BiPAP 04/22/24 23:23 82 13 94 04/22/24 20:43 36.8 C 78 18 101/66 94 Room Air (3) Diarrhea Diarrhea type: unspecified type Qualified Code(s): R19.7 - Diarrhea, unspecified
[2024-04-23 06:42] LABS: Basophils # (auto) 0.01 K/uL (0.00-0.20); Basophils % (auto) 0.2 %; Eosinophils # (auto) 0.67 K/uL (0.00-0.50); Hemoglobin 10.2 g/dl (12.0-16.0); Immature Granulocytes # (auto) 0.06 K/uL (0.01-0.20); Immature Granulocytes % (auto) 1.1 %; Lymphocytes # (auto) 1.58 K/uL (1.20-3.40); Lymphocytes % (auto) 28.3 %; Mean Corpuscular Hemoglobin 28.4 pg (25.0-34.0); Mean Corpuscular Hgb Conc 32.9 g/dL (32.0-36.0); Mean Corpuscular Volume 86.4 fL (80.0-100.0); Mean Platelet Volume 9.7 fL (9.4-12.4); Monocytes # (auto) 0.85 K/uL (0.11-0.59); Monocytes % (auto) 15.2 %; Neutrophils # (auto) 2.41 K/uL (1.40-6.50); Neutrophils % (auto) 43.2 %; Platelet Count 187 K/uL (130-400); RDW Coefficient of Variation 14.6 % (11.5-14.5); RDW Standard Deviation 44.9 fL (36.4-46.3); Red Blood Count 3.59 M/uL (4.20-5.40); White Blood Count 5.58 K/ul (4.8-10.8)
[2024-04-23 07:01] LABS: BUN Creatinine Ratio 11.3 (10-20); Calcium 8.7 mg/dl (8.6-10.3); Creatinine Clr Calc Pharmacy 35.1 ml/min; Magnesium 1.9 mg/dl (1.7-2.4); Potassium 3.2 mmol/L (3.5-5.1)
--- NOTE | 2024-04-23 08:13 | Hospitalist Progress Note ---
Date of Service April 23, 2024 Assessment & Plan (1) Hypovolemic shock: Plan: Presented with severe hypotension (low 49/33) and diarrheal illness. Reported malaise x 1.5 weeks and severe diarrhea x 4 days. Suspect hypovolemic shock due to significant volume contraction in setting of GI losses - Initially admitted to ICU as patient required vasopressors and stress dose steroids after BP not improved after multiple IV boluses, stabilized and downgraded off ICU 04/21 - Gallbladder US showed small amount of sludge; no concern for acute cholecystitis - CXR unremarkable - Random cortisol 15.75 (technically WNL, but would expect cortisol to be elevated given patient's stress/illness level) - C. diff negative, stool biofire negative, fecal occult negative, blood cultures negative x 24 hours - Continue hydrocortisone and wean off; last dose 04/24 AM although may end up on steroids for colitis - Can now discontinue empiric Zosyn for GI source since blood cultures neg over 48 hrs - Continue pantoprazole (2) ARF (acute renal failure): Plan: ARK with associated metabolic acidosis on admission, suspect prerenal etiology in the setting of GI losses and poor oral intake - Baseline Cr ~1.6; Cr 4.46 and non-oliguric on admission - No prior history of kidney stones or obstructions; only new medication is allopurinol, however this was started 04/03 and BMP was rechecked on 04/12 without changes. No stones noted on CT A/P this admission - Provided aggressive fluid resuscitation - Repleted mag, augmented appropriately - Chen catheter initially placed for strict I&O monitoring, but removed due to intolerance - Urine output much improved - Cr improved to 2.39, continue to monitor - Avoid nephrotoxic agents when possible - Encourage PO fluid intake (3) Diarrhea: Plan: Severe diarrhea x 4 days prior to admission after receiving the third dose of obinutuzumab. Patient reported couple episodes of black bowel movements at home - C. difficile, Stool BioFire, Fecal occult negative - Frequent liquid BMs persist - Consulted oncology given symptom timeline with obinutuzumab therapy > Checking calprotectin level on stool sample to evaluate for colitis; monitor for results > Scheduled for treatment on 04/26, which oncology suspects to be delayed in order to rule out obinutuzumab induced colitis - GI consulted > Plan for EGD and colonoscopy with biopsies to evaluate for chemotherapy- induced colitis 04/24; NPO at midnight - HOLD Imodium with upcoming EGD/colonoscopy - Continue pantoprazole, famotidine - Consider Lomotil after scopes if diarrhea persists (4) Hypertension: Plan: Takes Losartan 25 mg daily, metoprolol 12.5 mg BID, and aspirin 81 mg daily at home - Losartan on hold due to ARF - Continue metoprolol and aspirin Reported occasional palpitations overnight 04/21 - Reviewed telemetry -- NSR with 1st degree block and occasional PVCs - No reported chest pain Plan Repleted potassium Ordered IV fluids x 1 bag Consulted GI Held Imodium Chronic stable issues: CLL/SLL: Follows with CCP LAINE: Continue CPAP at bedtime VTE PPx: Heparin 7500 units q12h resumed CODE STATUS: Full code Admission and Anticipated Discharge Date Admission Date: April 20, 2024 Supervising Physician Co-Signing Physician Notes PA Supervision Note: I did not personally see or examine the patient today, but I verified all james points of ULYSSES Salazar's assessment and plan with the following exceptions/additions: None Subjective Patient seen and evaluated in bedside chair. She reports feeling well today. She does continue to have frequent loose bowel movements, but states the Imodium has improved her frequency slightly. She was seen by GI earlier, who plans to do an EGD and colonoscopy with biopsies tomorrow to evaluate for chemotherapy induced colitis. She denies abdominal pain or vomiting. Reports mild nausea, no worse than her baseline. No additional complaints or concerns at this time. Physical Exam Physical Exam: General: No acute distress, nondiaphoretic, well-developed, well-nourished. Skin: The skin was without rashes, erythema, edema, or bruising. Port on left chest wall. Cardiac: Regular rate and rhythm without murmurs gallops or rubs. Pulm: Clear to auscultation bilaterally without wheezes, rales or rhonchi. No respiratory distress. 95% on room air. Abdominal: Soft, nontender, nondistended. Bowel sounds present. : No Chen catheter. Neuro: A&O x3. No focal neurological deficits. Results & Data Results & Data Vital Signs (Past 12 Hours) Vital Signs Temp Pulse Pulse Resp BP Pulse Ox O2 Del Method 04/23/24 07:40 98.6 F 80 18 141/78 H 94 Room Air 04/23/24 07:31 78 11/24/24 05:12 73 04/23/24 03:49 77 13 94 04/23/24 03:19 98.1 F 83 15 100/63 96 BiPAP 04/22/24 23:47 97.9 F 71 15 110/73 94 BiPAP 04/22/24 23:23 82 13 94 04/22/24 20:43 98.2 F 78 18 101/66 94 Room Air Laboratory Results Reviewed CBC Reviewed BMP Reviewed blood cultures PG Care Time/CCT Total # of Minutes Spent Total Time Spent with Patient: Total time spent is greater than 50% in coordination of care (as documented) at patient's floor/unit and/or counseling patient: Coding Level of Care Code 09646 SUB INP/OBS CARE 3/50MIN Diagnoses Hypovolemic shock R57.1 ARF (acute renal failure) N17.9 Diarrhea R19.7 Diarrhea type: unspecified type Hypertension I10 (3) Diarrhea Diarrhea type: unspecified type Qualified Code(s): R19.7 - Diarrhea, unspecified
[2024-04-23] MEDS: ASPIRIN 81 MG ECTAB PO SCH (08:56)
[2024-04-23] MEDS: POTASSIUM CHLORIDE CRTAB 20 MEQ TABCR PO STA (09:08)
[2024-04-23] MEDS ORDERED: DEXTROSE 5% 1,000 ML IV SCH (09:45)
[2024-04-23] MEDS: D5W AND 1/2NSS 1,000 ML IV SCH (10:12)
--- NOTE | 2024-04-23 11:23 | Gastrointestinal Consultation ---
Date of Consultation April 23, 2024 Assessment & Plan (1) Diarrhea: (2) Nausea: The patient is scheduled for EGD and colonoscopy. Multiple random colonic biopsies will be obtained to rule out chemotherapy induced colitis. For now continue hydrocortisone 40 mg twice a day. Continue intravenous hydration. History of Present Illness Reason for Consultation: Chemotherapy induced diarrhea. Attending Physician: Suni Munroe MD History of Present Illness Receiving chemotherapy for recurrent CLL. Watery diarrhea, dehydration, hypovolemic shock and acute renal failure of about 7 to 10 days duration. Symptoms started after receiving the third dose of obinutuzumab. Initially admitted to intensive care unit for early pressors. With hydration and steroids the patient is feeling better however continues to have loose stools. Off pressors. Complains of vague upper abdominal discomfort. Denies vomiting but has nausea. Stool for C. difficile and enteric bacterial panel was negative. Stool was negative for Hemoccult as well. No prior colonoscopy. EGD and colonoscopy requested by patient's oncologist to rule out chemotherapy induced colitis. Allergies Allergy/AdvReac Type Severity Reaction Status Date / Time meperidine AdvReac Intermediate LOSS OF Verified 03/15/24 11:38 MEMORY procaine AdvReac Mild INEFFECTIVE Verified 03/15/24 11:38 Home Medications Medication Instructions Recorded Confirmed Type aspirin 81 mg chewable tablet 81 mg PO QAM 11/24/18 04/20/24 History cetirizine 10 mg tablet 10 mg PO QAM PRN Allergy Symptoms 11/24/18 04/20/24 History furosemide 20 mg tablet 20 mg PO QAM 11/24/18 04/20/24 History losartan 25 mg tablet 25 mg PO QAM 05/29/21 04/20/24 History metoprolol tartrate 25 mg tablet 12.5 mg PO BID 05/29/21 04/20/24 History famotidine 20 mg tablet (Pepcid) 20 mg PO HS PRN Other 04/27/22 04/20/24 History pantoprazole 40 mg tablet,delayed 40 mg PO QAM 08/18/22 04/20/24 History release Cleavers 20 ml PO QAM 03/01/24 04/20/24 History [place] Tail 20 ml PO QAM 03/01/24 04/20/24 History turmeric 1 cap PO BID 03/01/24 04/20/24 History allopurinol 300 mg tablet 300 mg PO PM 04/20/24 04/20/24 History ondansetron HCl 8 mg tablet 8 mg PO DIRECTED PRN n/v 04/20/24 04/20/24 History prochlorperazine maleate 10 mg 10 mg PO DIRECTED PRN n/v 04/20/24 04/20/24 History tablet venetoclax 10 mg (14)-50 mg 1 ea PO UD 04/20/24 04/20/24 History (7)-100 mg (21) tablets in a dose pack (Venclexta Starting Pack) Patient History Medical History Insulin resistance patient states no meds any longer and "not diabetic" History of bronchitis Hypertension Sleep apnea CPAP CLL (chronic lymphocytic leukemia) History of COVID-19 hx 03/2021--mild symptoms, no symptoms now Osteoarthritis Fatty liver GERD (gastroesophageal reflux disease) IBS (irritable bowel syndrome) Hearing deficit Migraine SOB (shortness of breath) on exertion Aortic aneurysm MONITORING - following W/ DR. Carias- "measuring up to 4.2 cm in diameter" per chest CT 04/2021 [place] Cardiac murmur No murmur on exam per 05/28/21 general surgery note Surgical History Port-A-Cath in place (06/02/21) Insertion Access Port with Fluoroscopy(Left) - Cristobal Mina DO, FACS 06/02/2021 pt states it is a power port History of bone marrow biopsy History of lymph node excision CERVICAL History of surgery REMOVAL OF BENIGN GROWTH FROM RLE History of tonsillectomy History of tubal ligation Family History Mother Heart disease Family history of reaction to anesthesia PONV Cancer Hypertension Mother Family history of diabetes mellitus Grandmother Family history of diabetes mellitus Heart disease Cancer Hypertension Social History Smoking Status: Former smoker Tobacco Type: Cigarettes Cigarettes Per Day: quit in college; Second Hand Exposure: No; Do You Dip or Chew Tobacco: No (smoked lightly in college); Tobacco Cessation Education Requested by Patient: No Hx Alcohol Use: Yes Alcohol type: wine Alcohol Intake Frequency: Monthly or Less Alcohol Intake Frequency Comment: holidays Hx Substance Use: No Preferred Language: Egyptian Communication Ability: Effective Buckle Gluer Required: No Beliefs That Will Affect Care: None marital status: Current Living Situation: Spouse current occupational status: employed 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 Respiratory: Denies cough, denies shortness of breath. Cardiovascular: Denies chest pain and palpitations. Gastrointestinal: As per history of present illness. Physical Exam Physical Exam: Constitutional: WD/WN, vitals as above Respiratory: normal respiratory effort, lungs clear to auscultation Cardiovascular: RRR, no murmur, no edema Gastrointestinal (Abdomen): normal bowel sounds, soft, nontender, no hepatosplenomegaly. Neurological: Oriented x 3, grossly no focal abnormalities, speech is intact. Results & Data Vital Signs (Past 12 Hours) Vital Signs Temp Pulse Pulse Resp BP Pulse Ox O2 Del Method 04/23/24 07:40 37.0 C 80 18 141/78 H 94 Room Air 04/23/24 07:31 78 04/23/24 05:12 73 04/23/24 03:49 77 13 94 04/23/24 03:19 36.7 C 83 15 100/63 96 BiPAP 04/22/24 23:47 36.6 C 71 15 110/73 94 BiPAP 04/22/24 23:23 82 13 94 PG Care Time/CCT Total # of Minutes Spent Total Time Spent with Patient: Total time spent is greater than 50% in coordination of care (as documented) at patient's floor/unit and/or counseling patient: Coding Level of Care Code 59234 INT INP/OBS CARE 375MIN Diagnoses Diarrhea R19.7 Diarrhea type: unspecified type Nausea R11.0 (1) Diarrhea Diarrhea type: unspecified type Qualified Code(s): R19.7 - Diarrhea, unspecified
[2024-04-23] MEDS: bisacodyL 5 MG TABEC PO ONE (11:35)
[2024-04-23] MEDS: LAVAGE SOLUTION 4000ML PO SCH (17:42)
[2024-04-23] MEDS: HYDROCORTISONE SOD 50 MG in SYRINGE 0 ML IV SCH (20:39)
[2024-04-24 06:32] LABS: Hematocrit (blood only) 32.1 % (37.0-47.0); Hemoglobin 10.6 g/dl (12.0-16.0); Mean Corpuscular Hemoglobin 28.6 pg (25.0-34.0); Mean Corpuscular Volume 86.5 fL (80.0-100.0); Mean Platelet Volume 9.3 fL (9.4-12.4); Platelet Count 211 K/uL (130-400); RDW Coefficient of Variation 14.6 % (11.5-14.5); RDW Standard Deviation 45.7 fL (36.4-46.3); Red Blood Count 3.71 M/uL (4.20-5.40); White Blood Count 5.67 K/ul (4.8-10.8)
[2024-04-24 06:49] LABS: BUN Creatinine Ratio 11.4 (10-20); Calcium 8.8 mg/dl (8.6-10.3); Creatinine Clr Calc Pharmacy 45.4 ml/min; Magnesium 1.9 mg/dl (1.7-2.4); Potassium 3.5 mmol/L (3.5-5.1)
--- NOTE | 2024-04-24 07:33 | Anesthesiology Consultation ---
Date of Service April 24, 2024 Assessment & Plan Chart Review Chart Review: Acceptable Risk for Surgery Consults Requested none ASA ASA3 Proposed Anesthesia Anesthesia Type: MAC Risk / Benefits Reviewed With: PT / POA / Parent / Guardian, Accepts Plan and Informed Consent Obtained History Surgery Operation Date: 04/24/24 17:40 Proposed Procedures p Colonoscopy EGD Dr. Jennifer Rodriguez MD Height/Weight Height: 5 ft 4 in Weight: 132.1 kg Allergies Allergy/AdvReac Type Severity Reaction Status Date / Time meperidine AdvReac Intermediate LOSS OF Verified 03/15/24 11:38 MEMORY procaine AdvReac Mild INEFFECTIVE Verified 03/15/24 11:38 Medications Home Medications Medication Instructions Recorded Confirmed Last Taken aspirin 81 mg chewable tablet 81 mg PO QAM 11/24/18 04/20/24 04/20/24 cetirizine 10 mg tablet 10 mg PO QAM PRN Allergy Symptoms 11/24/18 04/20/24 3 Months Ago ~03/02/21 furosemide 20 mg tablet 20 mg PO QAM 11/24/18 04/20/24 04/20/24 losartan 25 mg tablet 25 mg PO QAM 05/29/21 04/20/24 04/20/24 metoprolol tartrate 25 mg tablet 12.5 mg PO BID 05/29/21 04/20/24 04/20/24 famotidine 20 mg tablet (Pepcid) 20 mg PO HS PRN Other 04/27/22 04/20/24 Unknown pantoprazole 40 mg tablet,delayed 40 mg PO QAM 08/18/22 04/20/24 04/20/24 release Cleavers 20 ml PO QAM 03/01/24 04/20/24 04/20/24 [place]ail 20 ml PO QAM 03/01/24 04/20/24 04/20/24 turmeric 1 cap PO BID 03/01/24 04/20/24 04/20/24 allopurinol 300 mg tablet 300 mg PO PM 04/20/24 04/20/24 Unknown ondansetron HCl 8 mg tablet 8 mg PO DIRECTED PRN n/v 04/20/24 04/20/24 Unknown prochlorperazine maleate 10 mg 10 mg PO DIRECTED PRN n/v 04/20/24 04/20/24 Unknown tablet venetoclax 10 mg (14)-50 mg 1 ea PO UD 04/20/24 04/20/24 Unknown (7)-100 mg (21) tablets in a dose pack (Venclexta Starting Pack) Active Medications Generic Name Dose Route Start Last Admin Trade Name Freq PRN Reason Stop Dose Admin Aspirin 81 mg 04/23/24 09:00 04/24/24 08:35 Aspirin 81 Mg Ectab PO 05/23/24 08:59 81 mg QAM JOSE Administration Famotidine 20 mg 04/22/24 12:15 04/24/24 08:35 Famotidine 20 Mg Tab PO 05/22/24 12:14 20 mg QAM JOSE Administration Heparin Sodium (Porcine) 7,500 units 04/21/24 20:00 04/24/24 08:39 Heparin Sod 5,000 Unit/0.5 Ml Vial SQ 05/21/24 19:59 7,500 units Q12H JOSE Administration Heparin Sodium (Porcine) 5 ml 04/22/24 06:09 04/23/24 05:43 Heparin 100 Unit/Ml 5ml Flush FLUSH 05/22/24 06:08 5 ml PRN PRN Administration Flush Pantoprazole Sodium 40 mg in 10 mls @ 5 mls/min 04/21/24 09:00 04/24/24 08:32 Protonix IV 05/21/24 08:59 5 mls/min BID JOSE Administration Hydrocortisone Sodium 1 mls @ 4 mls/min 04/23/24 21:00 04/24/24 08:32 Succinate 50 mg/ Syringe IV 04/24/24 20:59 4 mls/min BID JOSE Administration Loperamide HCl 2 mg 04/22/24 12:00 04/22/24 21:58 Loperamide Hcl 2 Mg Cap PO 05/22/24 11:59 2 mg Q4H PRN Administration Diarrhea Metoprolol Tartrate 12.5 mg 04/21/24 21:00 04/24/24 08:35 Metoprolol Tartrate 25 Mg Tab PO 05/21/24 20:59 12.5 mg BID JOSE Administration Ondansetron HCl 4 mg 04/20/24 21:28 04/23/24 22:16 Ondansetron Inj 2 Mg/Ml 2 Ml Vial IV 05/20/24 21:27 4 mg Q6H PRN Administration Nausea NPO Date Last Intake of Fluids: 04/23/24 Date Last Intake of Solids: 04/22/24 Past Medical History Medical History (Updated 04/24/24 @ 07:30 by Elif Pacheco DO) Diabetes Morbid obesity BMI 51.5 CLL (chronic lymphocytic leukemia) relapsed Hypertension Sleep apnea CPAP Insulin resistance patient states no meds any longer and "not diabetic" History of bronchitis Hypertension Sleep apnea CPAP CLL (chronic lymphocytic leukemia) History of COVID-19 hx 03/2021--mild symptoms, no symptoms now Osteoarthritis Fatty liver GERD (gastroesophageal reflux disease) IBS (irritable bowel syndrome) Hearing deficit Migraine SOB (shortness of breath) on exertion Aortic aneurysm MONITORING - following W/ DR. Carias- "measuring up to 4.2 cm in diameter" per chest CT 04/2021 [place] Cardiac murmur No murmur on exam per 05/28/21 general surgery note admitted with diarrheal illness requiring IVF and vasoactive support 04/20/24 Exercise / Class Metabolic Activity II 4-5 Yardwork/Stairs/Walk up hill Past Family History Family History Mother Heart disease Family history of reaction to anesthesia PONV Cancer Hypertension Mother Family history of diabetes mellitus Grandmother Family history of diabetes mellitus Heart disease Cancer Hypertension Past Surgical History Surgical History Port-A-Cath in place (06/02/21) Insertion Access Port with Fluoroscopy(Left) - Cristobal Mina DO, FACS 06/02/2021 pt states it is a power port History of bone marrow biopsy History of lymph node excision CERVICAL History of surgery REMOVAL OF BENIGN GROWTH FROM RLE History of tonsillectomy History of tubal ligation Past Anesthesia History No Hx of Anesthesia Complications and No Family Hx of Anesthesia Complications History of PONV No Hx of PONV and No Hx of Motion Sickness Social History Smoking Status: Former smoker tobacco type: cigarettes Smoking cigarettes per day: quit in college Do You Dip or Chew Tobacco: No (smoked lightly in college) Hx Alcohol Use: Yes Alcohol type: wine alcohol intake frequency: holidays/special occasions only Hx Substance Use: No substance use type: does not use Physical Exam Vital Signs Last Vital Signs Temp 36.7 C 04/24/24 13:26 Pulse 70 04/24/24 13:26 Resp 16 04/24/24 13:26 BP 118/62 04/24/24 13:26 Pulse Ox 96 04/24/24 13:26 O2 Del Method Room Air 04/24/24 13:26 FiO2 21 04/22/24 03:49 Constitutional + morbidly obese ENMT Mouth: no TMJ abnormality Thyromental Distance: > or= 3.5 Finger Breadths Mallampati Class: III Neck normal visual inspection and trachea midline; neck extension not limited Respiratory normal respiratory effort Auscultation: lungs clear to auscultation bilaterally Cardiovascular Rate/Rhythm: regular rate and regular rhythm Heart Sounds: no murmur Musculoskeletal Spine: normal cervical ROM Extremities: full ROM of extremities Neurologic moves all extremities Psychiatric Orientation: alert and oriented x 3 Testing Laboratory Results 04/24/24 06:09 04/24/24 06:09 PT 12.3 Seconds (9.0-12.0) H 04/20/24 16:25 INR 1.1 (0.9-1.1) 04/20/24 16:25 APTT 37 Seconds (21-31) H 04/20/24 16:25 Urine Color Yellow 04/20/24 Unknown Urine Appearance Clear (Clear) 04/20/24 Unknown Urine pH 5.0 (4.5-7.5) 04/20/24 Unknown Ur Specific [place] 1.008 (1.000-1.030) 04/20/24 Unknown Urine Protein Negative (Negative) 04/20/24 Unknown Urine Glucose (UA) Negative (Negative) 04/20/24 Unknown Urine Ketones Negative (Negative) 04/20/24 Unknown Urine Nitrite Negative (Negative) 04/20/24 Unknown Ur Leukocyte Esterase Negative (Negative) 04/20/24 Unknown 04/20/24 16:33 Aerobic Blood Culture - Preliminary Blood No growth in Aerobic bottle after 48 hours. Anaerobic Blood Culture - Preliminary No growth in Anaerobic bottle after 48 hours. 04/20/24 16:25 Aerobic Blood Culture - Preliminary Blood No growth in Aerobic bottle after 48 hours. Anaerobic Blood Culture - Preliminary No growth in Anaerobic bottle after 48 hours. Electrocardiogram Date: 04/20/24 Vent. Rate : 91 BPM Atrial Rate : 91 BPM P-R Int : 182 ms QRS Dur : 114 ms QT Int : 344 ms P-R-T Axes : 42 9 2 degrees QTcB Int : 423 ms Normal sinus rhythm Low voltage QRS Poor R wave progression, consider anterior VA vs. lead placement vs. LVH Abnormal ECG When compared with ECG of 12-Apr-2024 10:18, Nonspecific T wave abnormality no longer evident in Anterior leads Chest X-Ray Date: 04/20/24 Findings: + NAD Other Testing 02/23/[address] fusion skull to thigh CLINICAL HISTORY: LYMPHOMA RADIOPHARMACEUTICAL: F18-FDG. DOSE: 10.4 mCi. TECHNIQUE: Approximately 60 minutes following IV tracer administration, positron emission tomography was performed from the skull through mid thighs. Non- contrast helical CT imaging was performed over the same range without breath- hold for attenuation correction of PET images and anatomic correlation, but not for primary interpretation as it is not of standard diagnostic quality. Images were reviewed in the axial, coronal and sagittal planes. COMPARISON: Comparison is made to soft tissue neck CT 01/05/2024 FINDINGS: HEAD AND NECK: There is normal distribution of F-18 radiopharmaceutical in the visualized brain with no evidence of abnormal radiopharmaceutical uptake. It should be noted that a contrast enhanced CT or MRI is more sensitive for evaluation of brain masses. Redemonstration of prominent bilateral cervical chain lymph nodes measuring up to 19 mm left. These demonstrate moderate FDG uptake, SUV max 5.5. CHEST: There is no pleural or pericardial effusion. Lungs are clear. Subcentimeter mediastinal lymph nodes are seen. Bilateral axillary nodes are seen measuring up to 15 mm in diameter, SUV max 3.4. ABDOMEN/PELVIS: Below the diaphragm, tracer is distributed physiologically in the gastrointestinal and genitourinary tracts. Prominent retroperitoneal and anthony hepatis nodes demonstrate moderate FDG uptake, SUV max 5.2. Prominent pelvic lymph nodes measure up to 29 mm, SUV max 5.7. MUSCULOSKELETAL: There is no FDG-avid or destructive bone lesion. IMPRESSION: Lymphadenopathy is seen throughout with moderate FDG uptake.
--- NOTE | 2024-04-24 08:25 | Hospitalist Progress Note ---
Date of Service April 24, 2024 Assessment & Plan (1) Hypovolemic shock: Plan: Presented with severe hypotension (low 49/33) and diarrheal illness. Reported malaise x 1.5 weeks and severe diarrhea x 4 days. Suspect hypovolemic shock due to significant volume contraction in setting of GI losses - Initially admitted to ICU as patient required vasopressors and stress dose steroids after BP not improved after multiple IV boluses, stabilized and downgraded off ICU 04/21 - Gallbladder US showed small amount of sludge; no concern for acute cholecystitis - CXR unremarkable - Random cortisol 15.75 (technically WNL, but would expect cortisol to be elevated given patient's stress/illness level) - C. diff negative, stool biofire negative, fecal occult negative, blood cultures negative x48 hours - Stress dosed steroids -- last dose of hydrocortisone 04/24 AM, although may end up on steroids for colitis - Empirically treated with Zosyn for GI source, but discontinued since blood cultures negative >48 hours - Continue pantoprazole (2) ARF (acute renal failure): Plan: ARK with associated metabolic acidosis on admission, suspect prerenal etiology in the setting of GI losses and poor oral intake - Baseline Cr ~1.6; Cr 4.46 and non-oliguric on admission - No prior history of kidney stones or obstructions; only new medication is allopurinol, however this was started 04/03 and BMP was rechecked on 04/12 without changes. No stones noted on CT A/P this admission - Provided aggressive fluid resuscitation - Repleted mag, augmented appropriately - Chen catheter initially placed for strict I&O monitoring, but removed due to intolerance - Urine output much improved - Cr improved to 1.85, continue to monitor - Avoid nephrotoxic agents when possible - Encourage PO fluid intake (3) Diarrhea: Plan: Severe diarrhea x 4 days prior to admission after receiving the third dose of obinutuzumab. Patient reported couple episodes of black bowel movements at home - C. difficile, Stool BioFire, Fecal occult negative - Frequent liquid BMs persist - Consulted oncology given symptom timeline with obinutuzumab therapy > Checking calprotectin level on stool sample to evaluate for colitis; monitor for results > Scheduled for treatment on 04/26, which oncology suspects to be delayed in order to rule out obinutuzumab induced colitis - GI consulted > EGD and colonoscopy with biopsies to evaluate for chemotherapy-induced colitis 04/24 - EGD: Normal esophagus, mild gastritis, normal duodenum. Await pathology results to rule out enteritis. - Colonscopy: Jaime score of 1 throughout the colon with some sparing in the transverse colon. Follow-up pathology results. - HOLD Imodium with upcoming EGD/colonoscopy - Continue pantoprazole, famotidine - Consider Lomotil after scopes if diarrhea persists - On full liquid diet, advance as tolerated (4) Hypertension: Plan: Takes Losartan 25 mg daily, metoprolol 12.5 mg BID, and aspirin 81 mg daily at home - Losartan on hold due to ARF; blood pressures stable - Continue metoprolol and aspirin Reported occasional palpitations overnight 04/21 - Reviewed telemetry -- NSR with 1st degree block and occasional PVCs - No reported chest pain Plan Chronic stable issues: CLL/SLL: Follows with CCP LAINE: Continue CPAP at bedtime VTE PPx: Heparin CODE STATUS: Full code Admission and Anticipated Discharge Date Admission Date: April 20, 2024 Supervising Physician Co-Signing Physician Notes Attending Attestation - Chart reviewed, care plan d/w ULYSSES Salazar. I agree w/ the james components of her documentation. Appreciate GI assistance. s/p EGD & colonoscopy today. Labs stable; JEREL improving. BPs stable; no hypotension. Tono Adames MD Subjective Patient seen and evaluated in bedside chair. She is eager to go down for her EGD/colonoscopy. She denies abdominal pain or nausea at this time. We discussed that the course of her treatment plan will be finalized after results from scopes today. No additional complaints or concerns at this time. Physical Exam Physical Exam: General: No acute distress, nondiaphoretic, well-developed, well-nourished. Skin: The skin was without rashes, erythema, edema, or bruising. Port on left chest wall. Cardiac: Regular rate and rhythm without murmurs gallops or rubs. Pulm: Clear to auscultation bilaterally without wheezes, rales or rhonchi. No respiratory distress. 96% on room air. Abdominal: Soft, nontender, nondistended. Bowel sounds present. : No Chen catheter. Neuro: A&O x3. No focal neurological deficits. Results & Data Results & Data Vital Signs (Past 12 Hours) Vital Signs Temp Pulse Pulse Resp BP Pulse Ox O2 Del Method 04/24/24 08:06 98.4 F 73 18 134/78 96 Room Air 04/24/24 07:07 71 04/24/24 03:16 97.9 F 70 16 107/69 96 Room Air 04/23/24 23:46 75 04/23/24 23:15 97.9 F 68 19 101/78 94 Room Air 04/23/24 20:32 97.9 F 79 16 115/88 92 Room Air Laboratory Results Reviewed CBC Reviewed BMP Reviewed blood cultures PG Care Time/CCT Total # of Minutes Spent Total Time Spent with Patient: Total time spent is greater than 50% in coordination of care (as documented) at patient's floor/unit and/or counseling patient: Coding Level of Care Code 56394 SUB INP/OBS CARE 2/35MIN Diagnoses Hypovolemic shock R57.1 ARF (acute renal failure) N17.9 Diarrhea R19.7 Diarrhea type: unspecified type Hypertension I10 (3) Diarrhea Diarrhea type: unspecified type Qualified Code(s): R19.7 - Diarrhea, unspecified
--- NOTE | 2024-04-24 09:28 | Gastroenterology Progress Note ---
Date of Service April 24, 2024 Assessment & Plan (1) Diarrhea: Plan 58 year old female with history of CLL, HTN, LAINE and DM admitted 04/20 w/ diarrhea and hypovolemic shock. C. diff negative, stool biofire negative, fecal occult negative. CT w/o intestinal obstruction or focal inflammatory process, ABD US w/ GB distention and sludge. She has been medically optimized, BP 134/78 w/ plan for endoscopic evaluation this today. Maintain NPO status for EGD/Colonoscopy today Trend H&H Monitor and document GI output Transfuse PRN per primary service We appreciate assistance in the management of any serological abnormality and corrections to include: hemoglobin >7, INR <2, platelets >50,000, potassium levels >3.5 but <5.3, and sodium levels within 5 points of the reference range prior to endoscopic evaluation. Thank you for allowing us to participate in the care of this patient. Please call with any acute changes, questions or concerns. Please see addendum below with additional recommendation from my supervising physician. Admission and Anticipated Discharge Date Admission Date: April 20, 2024 Supervising Physician Co-Signing Physician Notes I examined the patient and reviewed the medical record, laboratory data and imaging studies. I agree with the assessment and plan of care as suggested by the advanced practice provider. Subjective Pt was seen and evaluated, chart reviewed. Tolerated about 1/2 of bowel prep. Notes the PPI therapy has greatly helped her upset stomach, nausea/vomiting. Stools are liquid, yellow w/ occasional green. No black or bloody stool with the bowel prep. Review of Systems Review of Systems: All other findings negative except as noted in HPI. Physical Exam Constitutional: WD/WN, vitals as above Respiratory: normal respiratory effort, lungs clear to auscultation Cardiovascular: RRR, no murmur, no edema Gastrointestinal (Abdomen): normal bowel sounds, soft, nontender, no hepatosplenomegaly Skin: no rashes, warm and dry Results & Data Results & Data Vital Signs (Past 12 Hours) Vital Signs Temp Pulse Pulse Resp BP Pulse Ox O2 Del Method 04/24/24 08:06 36.9 C 73 18 134/78 96 Room Air 04/24/24 07:07 71 04/24/24 03:16 36.6 C 70 16 107/69 96 Room Air 04/23/24 23:46 75 04/23/24 23:15 36.6 C 68 19 101/78 94 Room Air Laboratory Results 04/24/24 Range/Units 06:09 WBC 5.67 (4.8-10.8) K/ul RBC 3.71 L (4.20-5.40) M/uL Hgb 10.6 L (12.0-16.0) g/dl Hct 32.1 L (37.0-47.0) % MCV 86.5 (80.0-100.0) fL MCH 28.6 (25.0-34.0) pg MCHC 33.0 (32.0-36.0) g/dL RDW Std Deviation 45.7 (36.4-46.3) fL RDW Coeff of Dimitri 14.6 H (11.5-14.5) % Plt Count 211 (130-400) K/uL MPV 9.3 L (9.4-12.4) fL Sodium 141 (136-145) mmol/L Potassium 3.5 (3.5-5.1) mmol/L Chloride 111 H (98-107) mmol/L Carbon Dioxide 24 (21-32) mmol/L Anion Gap 6 (3-11) BUN 21 (6-23) mg/dl Creatinine 1.85 H D (0.6-1.2) mg/dl Est Cr Clr Drug Dosing 45.4 ml/min eGFR 31.41 BUN/Creatinine Ratio 11.4 (10-20) Glucose 96 (70-99(Fasting)) mg/dl Calcium 8.8 (8.6-10.3) mg/dl Magnesium 1.9 (1.7-2.4) mg/dl PG Care Time/CCT Total # of Minutes Spent Total Time Spent with Patient: Total time spent is greater than 50% in coordination of care (as documented) at patient's floor/unit and/or counseling patient: Coding Level of Care Code None Diagnoses Diarrhea R19.7 Diarrhea type: unspecified type (1) Diarrhea Diarrhea type: unspecified type Qualified Code(s): R19.7 - Diarrhea, unspecified
--- NOTE | 2024-04-24 15:00 | GI REPORT ---
[facility] Patient: JASON TORRES : 1965 Sex at : Female Age: 58 Years Procedure: Upper GI endoscopy Date: 04/24/2024 Attending Physician: Temo Rodriguez MD Referring MD: Referred Self; Tono Adames Indications: - Nausea vomiting diarrhea Medications: - Monitored Anesthesia Care Complications: - No immediate complications. Estimated Blood Loss: - Estimated blood loss: None. Procedure: - The egd scope was introduced through the mouth and advanced to the second part of the duodenum. - The upper GI endoscopy was accomplished with ease. - The patient tolerated the procedure well. - The upper GI endoscopy was accomplished without difficulty. Findings: - Normal esophagus. Mild gastritis. Normal duodenum. Biopsy done for H. Pylori and from the second portion of duodenum and from duodenal bulb Impression: - Normal esophagus. Mild gastritis. Normal duodenum. Biopsy done for H. Pylori and from the second portion of duodenum and from duodenal bulb Recommendation: - Await pathology results to R/O enteritis Procedure Code(s): - 52232, Esophagogastroduodenoscopy, flexible, transoral; diagnostic, including collection of specimen(s) by brushing or washing, when performed (separate procedure) CPT(R) - 2023 copyright [employer]. All Rights Reserved. The CPT codes, CCI edits and ICD codes generated are intended as suggestions and were generated based on input data. These codes are preliminary and upon psychiatric technician review may be revised to meet current compliance and payer requirements. The provider is responsible for the final determination of appropriate codes, and modifiers. Temo Rodriguez MD This document has been electronically signed. Note Initiated:04/24/2024 Note Completed:04/24/2024 2:59 PM [email or web address]\Provation\Results\LIVE\[id number]
--- NOTE | 2024-04-24 15:05 | GI REPORT ---
[facility] Patient: JASON TORRES : 1965 Sex at : Female Age: 58 Years Procedure: Colonoscopy Date: 04/24/2024 Attending Physician: Temo Rodriguez MD Referring MD: Tono Adames Indications: - Screening and R/O checkpoint colitis Medications: - Monitored Anesthesia Care Complications: - No immediate complications. Estimated Blood Loss: - Estimated blood loss: None. Procedure: - The pediatric colonoscope was introduced through the anus and advanced to the terminal ileum, with identification of the appendiceal orifice and ileocecal valve. - The colonoscopy was performed with ease. - The patient tolerated the procedure well. - The quality of the bowel preparation was excellent. Findings: - There was a Jaime score of one throughout the colon with some sparing in the transverse colon - Biopsies taken from the terminal ileum and throughout the colon Impression: - There was a Jaime score of one throughout the colon with some sparing in the transverse colon - Biopsies taken from the terminal ileum and throughout the colon Recommendation: - Continue with current care. Monitor frequency of bowel movements. Follow up pathology Procedure Code(s): - 73436, Colonoscopy, flexible; diagnostic, including collection of specimen(s) by brushing or washing, when performed (separate procedure) CPT(R) - 2023 copyright [employer]. All Rights Reserved. The CPT codes, CCI edits and ICD codes generated are intended as suggestions and were generated based on input data. These codes are preliminary and upon industrial cafeteria manager review may be revised to meet current compliance and payer requirements. The provider is responsible for the final determination of appropriate codes, and modifiers. Temo Rodriguez MD This document has been electronically signed. Note Initiated:04/24/2024 Note Completed:04/24/2024 3:04 PM [email or web address]\[email or web address]\Data\Provation\Results\LIVE\[id number]
[2024-04-24] MEDS: PROPOFOL IV EMULSION 10 MG/ML 20 ML VIAL IV ONE ×2 (16:09)
[2024-04-24] MEDS: KETAMINE HCL 10MG/ML SYR ONE (16:09)
[2024-04-24] MEDS: LIDOCAINE 2% 2 ML VIAL/AMP(20MG/ML) INFIL ONE (16:09)
--- NOTE | 2024-04-24 16:12 | Anesthesiology Progress Note ---
Date of Service April 24, 2024 Anesthesia Post Procedure Vital Signs Vital Signs: Temp Pulse Pulse Resp BP Pulse Ox O2 Del Method 04/24/24 15:31 64 16 113/66 96 Room Air 04/24/24 15:15 70 16 105/72 95 Room Air 04/24/24 15:00 88 04/24/24 14:59 75 16 127/65 96 Room Air 04/24/24 13:26 36.7 C 70 16 118/62 96 Room Air 04/24/24 11:11 36.6 C 71 18 96/65 L 96 Room Air 04/24/24 08:06 36.9 C 73 18 134/78 96 Room Air 04/24/24 07:07 71 04/24/24 03:16 36.6 C 70 16 107/69 96 Room Air 04/23/24 23:46 75 04/23/24 23:15 36.6 C 68 19 101/78 94 Room Air 04/23/24 20:32 36.6 C 79 16 115/88 92 Room Air Transfer of Care Handoff Completed per policy Notes Mental Status: alert / awake / arousable Patient Amnestic to Procedure: Yes Nausea / Vomiting: adequately controlled Pain: adequately controlled Airway Patency, RR, SpO2: stable & adequate BP & HR: stable & adequate Hydration State: stable & adequate Anesthetic Complications: no major complications apparent and Pt Satisfied with anesthetic care
[2024-04-25 06:31] LABS: Hematocrit (blood only) 33.8 % (37.0-47.0); Hemoglobin 11.2 g/dl (12.0-16.0); Mean Corpuscular Hemoglobin 28.4 pg (25.0-34.0); Mean Corpuscular Hgb Conc 33.1 g/dL (32.0-36.0); Mean Corpuscular Volume 85.8 fL (80.0-100.0); Mean Platelet Volume 9.5 fL (9.4-12.4); Nucleated RBC # (auto) 0.02 K/uL (0.00-0.12); Nucleated RBC % (auto) 0.3 %; Platelet Count 217 K/uL (130-400); RDW Coefficient of Variation 14.6 % (11.5-14.5); RDW Standard Deviation 44.7 fL (36.4-46.3); Red Blood Count 3.94 M/uL (4.20-5.40)
[2024-04-25 06:44] LABS: Creatinine Clr Calc Pharmacy 48.5 ml/min; Magnesium 1.9 mg/dl (1.7-2.4); Phosphorus 3.2 mg/dl (2.5-4.9); Potassium 3.2 mmol/L (3.5-5.1)
--- NOTE | 2024-04-25 07:48 | Hospitalist Progress Note ---
Date of Service April 25, 2024 Assessment & Plan (1) Hypovolemic shock: Plan: Presented with severe hypotension (low 49/33) and diarrheal illness. Reported malaise x 1.5 weeks and severe diarrhea x 4 days. Suspect hypovolemic shock due to significant volume contraction in setting of GI losses 2nd to diarrhea from obinutuzumab - Initially admitted to ICU as patient required vasopressors and stress dose steroids after BP not improved after multiple IV boluses, stabilized and downgraded off ICU 04/21 - Gallbladder US showed small amount of sludge; no concern for acute cholecystitis - CXR unremarkable - Random cortisol 15.75 (technically WNL, but would expect cortisol to be elevated given patient's stress/illness level) - C. diff negative, stool biofire negative, fecal occult negative, blood cultures negative x48 hours - Stress dosed steroids -- last dose of hydrocortisone 04/24 AM, although may end up on steroids for colitis - Empirically treated with Zosyn for GI source, but discontinued since blood cultures negative >48 hours - Continue pantoprazole IV BID (on once daily PHYSICIAN NEONATOLOGY) 04/25 IMPROVING SLOWLY BPs borderline, hydrocortisone 50mg IV x1 this morning given BPs 90/60s (although asymptomatic) Per GI, solumedrol 30mg IV BID (starting this evening) s/p EGD and c-scope with Dr Celeste 04/24 > EGD and colonoscopy with biopsies to evaluate for chemotherapy-induced colitis 04/24 - EGD: Normal esophagus, mild gastritis, normal duodenum. Await pathology results to rule out enteritis. - Colonscopy: Jaime score of 1 throughout the colon with some sparing in the transverse colon. Pathology pending from endoscopy 04/24 -- will need f/u Diet advance to LOW FIBER Renal function improving -BUN/Cr 19/1.73. Holding off further IVF for now and will continue to HOLD home losartan 25mg, lasix 20mg. Metoprolol placed on HOLD for now to prevent hypotension Stool calprotectin level ordered but not yet collected -- message placed for next collection Repeat cdiff testing given PPI BID, if negative can RESUME Imodium prn PT/OT consults pending, patient hopeful for dc tomorrow but discussed will monitor her progress (2) ARF (acute renal failure): Plan: ARK with associated metabolic acidosis on admission, suspect prerenal etiology in the setting of GI losses and poor oral intake Baseline Cr ~1.6 Cr on admission 4.46, non-oliguric, uric acid not elevated (prior was but recently normal) and had been started on allopurinol 04/03. NO STONES noted on CTAP IVF hydration/steroids as above. Home BP meds on HOLD and improvement in UOP/renal function as above and remains with losartan/lasix on hold. Cr 1.73 almost back to baseline and continue to hold BP meds. BUN normal and improvement in PO intake and diet advanced PO Kcl for K 3.2 this morning, likely from ongoing GI lossess w/ diarrhea. Repeat cdiff as above/imodium if negative Renal dose meds/avoid toxins Monitor BMP in AM (3) Diarrhea: Plan: Severe diarrhea x 4 days prior to admission after receiving the third dose of obinutuzumab. Patient reported couple episodes of black bowel movements at home C. difficile, Stool BioFire, Fecal occult negative on admission GI consulted, oncology given symptom timeline with obinutuzumab therapy > Checking calprotectin level on stool sample to evaluate for colitis; monitor for results > Scheduled for treatment on 04/26, which oncology suspects to be delayed in order to rule out obinutuzumab induced colitis GI consulted > EGD and colonoscopy with biopsies to evaluate for chemotherapy-induced colitis 04/24 - EGD: Normal esophagus, mild gastritis, normal duodenum. Await pathology results to rule out enteritis. - Colonscopy: Jaime score of 1 throughout the colon with some sparing in the transverse colon. Follow-up pathology results. - HOLD Imodium, repeat cdiff as above and can resume if negative but remains on pantoprazole, famotidine (4) Hypertension: Plan: Takes Losartan 25 mg daily, metoprolol 12.5 mg BID, and aspirin 81 mg daily at home - Losartan on hold due to ARF; blood pressures stable - Continue metoprolol and aspirin - Reported occasional palpitations overnight 04/21 (NOTHING SINCE THAT) - Reviewed telemetry -- NSR with 1st degree block and occasional PVCs - No reported chest pain -> HOLDING METOPROLOL ABOVE USING FOR HTN, monitor on telemetry Plan Chronic stable issues: CLL/SLL: Follows with CCP. See above, presented after her treatment w/ increased GI losses/diarrhea LAINE: Continue CPAP at bedtime VTE PPx: Heparin SQ BID Dispo: continued inpatient stay, starting IV methylprednisolone (per GI), diet advanced to low fiber and repeat stool cdiff (as well as collecting calprotectin prior ordered) Patient is hopeful dc next 24hrs, however discussed likely another 48 given ongoing sx but will monitor response to treatment. PT/OT consults pending Admission and Anticipated Discharge Date Admission Date: April 20, 2024 Supervising Physician Co-Signing Physician Notes The patient was not seen by me. The chart was reviewed. Case discussed with ULYSSES Sewell. Agree with assessment and plan Subjective EValuated this morning, resting in bed. Feels whipped out, had another ~6BM overnight, no blood. No significant abdominal pain. Discussed IV soludmedrol per GI, also advancement of diet. Discussed repeat cdiff as well as collection for stool calprotectin and discussed with nursing to collect with next bowel movement. Discussed if repeat cdiff is negative that we can give her some immodium. No lightheaded/dizziness w/ ambulation. BPs borderline but stable. Did get dose solumedrol this morning and discussed the methylprednisolone to start for this evening. She is hopeful for possible dc tomorrow but discussed will see w/ advancement of diet. No fever/chills, chest pain, shortness of breath. Questions/concerns addressed at this time. Physical Exam 2 Physical Exam: General: 58yo female, obese, laying in bed, appears fatigued but NAD, CPAP in room HEENT: head atraumatic, normocephalic, mmm, trachea midline Chest: port looks good to LEFT chest, no evidence for infection Resp: even/unlabored, slightly diminished in the bases but on room air 93%, no w/c/r CV: RRR, no significant m/r/g, no pitting edema GI: +BS throughout, soft, obese, nontender no [place] MSK/Neuro: generalized weakness but nonfocal Psych: AOx3 ,cooperative with exam Results & Data Results & Data Vital Signs (Past 12 Hours) Vital Signs Temp Pulse Pulse Resp BP Pulse Ox O2 Del Method 04/25/24 07:29 36.9 C 82 16 93/62 L 93 Room Air 04/25/24 06:37 91/59 L 04/25/24 03:21 36.8 C 82 18 90/64 L 94 Room Air 11/25/24 23:11 36.6 C 80 17 96/62 L 93 BiPAP 04/24/24 22:48 82 04/24/24 19:59 36.4 C L 88 17 108/61 92 Room Air Laboratory Results 04/25/24 06:07 04/25/24 06:07 Mag 1.9 PG Care Time/CCT Total # of Minutes Spent Total Time Spent with Patient: Total time spent is greater than 50% in coordination of care (as documented) at patient's floor/unit and/or counseling patient: Coding Level of Care Code 77353 SUB INP/OBS CARE 3/50MIN Diagnoses Hypovolemic shock R57.1 ARF (acute renal failure) N17.9 Diarrhea R19.7 Diarrhea type: unspecified type Hypertension I10 (3) Diarrhea Diarrhea type: unspecified type Qualified Code(s): R19.7 - Diarrhea, unspecified
[2024-04-25] MEDS: POTASSIUM CHLORIDE CRTAB 20 MEQ TABCR PO STA (08:26)
--- NOTE | 2024-04-25 09:50 | Gastroenterology Progress Note ---
Date of Service April 25, 2024 Assessment & Plan (1) Diarrhea: Plan: 58 year old female with history of CLL, HTN, LAINE and DM admitted 04/20 w/ diarrhea and hypovolemic shock. C. diff negative, stool biofire negative, fecal occult negative. CT w/o intestinal obstruction or focal inflammatory process, ABD US w/ GB distention and sludge. 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 Admission and Anticipated Discharge Date Admission Date: April 20, 2024 Supervising Physician Co-Signing Physician Notes I examined the patient and reviewed the medical record, laboratory data and imaging studies. I agree with the assessment and plan of care as suggested by the advanced practice provider. Patient appears comfortable she has had 6 bowel movements since yesterday her endoscopy and colonoscopy path came back and it was consistent with duodenitis as well as chronic colitis throughout the colon most likely has colitis secondary to medications at the current time I will treat with Solu-Medrol and follow clinically told patient to keep a strict count of her bowel movements maintain IV hydration and monitor electrolytes we will continue to follow the patient with you Subjective Pt was seen and evaluated, chart reviewed. S/P EGD/Colonoscopy. Biopsies are pending. She remains on IV steroids. She reports she has had 6 loose/liquid BMs since her procedures yesterday. She is frustrated with her diarrhea. No black or bloody stools. Wants to try advancing her diet. EGD 2023: Normal esophagus. Mild gastritis. Normal duodenum. Biopsy done for H. Pylori and from the second portion of duodenum and from duodenal bulb Colonoscopy 2023: - There was a Jaime score of one throughout the colon with some sparing in the transverse colon - Biopsies taken from the terminal ileum and throughout the colon Review of Systems Review of Systems: All other findings negative except as noted in HPI. Physical Exam Constitutional: WD/WN, vitals as above Respiratory: normal respiratory effort Cardiovascular: Rate/Rhythm: regular rate and regular rhythm Gastrointestinal (Abdomen): normal bowel sounds, soft, nontender, no hepatosplenomegaly Skin: no rashes, warm and dry Results & Data Results & Data Vital Signs (Past 12 Hours) Vital Signs Temp Pulse Pulse Resp BP Pulse Ox O2 Del Method 04/25/24 07:29 36.9 C 82 16 93/62 L 93 Room Air 04/25/24 06:37 91/59 L 04/25/24 03:21 36.8 C 82 18 90/64 L 94 Room Air 04/24/24 23:11 36.6 C 80 17 96/62 L 93 BiPAP 04/24/24 22:48 82 Laboratory Results 04/25/24 Range/Units 06:07 WBC 8.00 (4.8-10.8) K/ul RBC 3.94 L (4.20-5.40) M/uL Hgb 11.2 L (12.0-16.0) g/dl Hct 33.8 L (37.0-47.0) % MCV 85.8 (80.0-100.0) fL MCH 28.4 (25.0-34.0) pg MCHC 33.1 (32.0-36.0) g/dL RDW Std Deviation 44.7 (36.4-46.3) fL RDW Coeff of Dimitri 14.6 H (11.5-14.5) % Plt Count 217 (130-400) K/uL MPV 9.5 (9.4-12.4) fL Absolute Nucleated RBC 0.02 (0.00-0.12) K/uL Nucleated RBC % (auto) 0.3 % Sodium 142 (136-145) mmol/L Potassium 3.2 L (3.5-5.1) mmol/L Chloride 112 H (98-107) mmol/L Carbon Dioxide 25 (21-32) mmol/L Anion Gap 5 (3-11) BUN 19 (6-23) mg/dl Creatinine 1.73 H (0.6-1.2) mg/dl Est Cr Clr Drug Dosing 48.5 ml/min eGFR 34.04 BUN/Creatinine Ratio 11.0 (10-20) Glucose 102 H (70-99(Fasting)) mg/dl Calcium 9.0 (8.6-10.3) mg/dl Phosphorus 3.2 (2.5-4.9) mg/dl Magnesium 1.9 (1.7-2.4) mg/dl Diagnostic Findings 04/25/24 Range/Units 06:07 WBC 8.00 (4.8-10.8) K/ul RBC 3.94 L (4.20-5.40) M/uL Hgb 11.2 L (12.0-16.0) g/dl Hct 33.8 L (37.0-47.0) % MCV 85.8 (80.0-100.0) fL MCH 28.4 (25.0-34.0) pg MCHC 33.1 (32.0-36.0) g/dL RDW Std Deviation 44.7 (36.4-46.3) fL RDW Coeff of Dimitri 14.6 H (11.5-14.5) % Plt Count 217 (130-400) K/uL MPV 9.5 (9.4-12.4) fL Absolute Nucleated RBC 0.02 (0.00-0.12) K/uL Nucleated RBC % (auto) 0.3 % Sodium 142 (136-145) mmol/L Potassium 3.2 L (3.5-5.1) mmol/L Chloride 112 H (98-107) mmol/L Carbon Dioxide 25 (21-32) mmol/L Anion Gap 5 (3-11) BUN 19 (6-23) mg/dl Creatinine 1.73 H (0.6-1.2) mg/dl Est Cr Clr Drug Dosing 48.5 ml/min eGFR 34.04 BUN/Creatinine Ratio 11.0 (10-20) Glucose 102 H (70-99(Fasting)) mg/dl Calcium 9.0 (8.6-10.3) mg/dl Phosphorus 3.2 (2.5-4.9) mg/dl Magnesium 1.9 (1.7-2.4) mg/dl PG Care Time/CCT Total # of Minutes Spent Total Time Spent with Patient: Total time spent is greater than 50% in coordination of care (as documented) at patient's floor/unit and/or counseling patient: Coding Level of Care Code 68423 SUB INP/OBS CARE MIN Diagnoses Diarrhea R19.7 Diarrhea type: unspecified type (1) Diarrhea Diarrhea type: unspecified type Qualified Code(s): R19.7 - Diarrhea, unspecified
[2024-04-25] MEDS: HYDROCORTISONE SOD 50 MG in SYRINGE 0 ML IV SCH (10:00)
[2024-04-25] MEDS: methylPREDNISolone 30 MG in SYRINGE 0 ML IV SCH (18:39)
[2024-04-25] MEDS ORDERED: methylPREDNISolone 30 MG in SYRINGE 0 ML IV SCH (21:00)
[2024-04-25] MEDS ORDERED: methylPREDNISolone 125 MG/2 ML VIAL IV SCH (21:00)
[2024-04-26 06:34] LABS: Hematocrit (blood only) 35.2 % (37.0-47.0); Hemoglobin 11.5 g/dl (12.0-16.0); Mean Corpuscular Hemoglobin 28.3 pg (25.0-34.0); Mean Corpuscular Hgb Conc 32.7 g/dL (32.0-36.0); Mean Corpuscular Volume 86.5 fL (80.0-100.0); Mean Platelet Volume 9.4 fL (9.4-12.4); Nucleated RBC # (auto) 0.02 K/uL (0.00-0.12); Nucleated RBC % (auto) 0.3 %; Platelet Count 235 K/uL (130-400); RDW Coefficient of Variation 14.9 % (11.5-14.5); RDW Standard Deviation 46.4 fL (36.4-46.3); Red Blood Count 4.07 M/uL (4.20-5.40); White Blood Count 7.19 K/ul (4.8-10.8)
[2024-04-26 07:00] LABS: BUN Creatinine Ratio 11.3 (10-20); Calcium 9.3 mg/dl (8.6-10.3); Creatinine Clr Calc Pharmacy 51.7 ml/min; Magnesium 2.1 mg/dl (1.7-2.4); Potassium 3.7 mmol/L (3.5-5.1)
--- NOTE | 2024-04-26 07:26 | Hospitalist Progress Note ---
Date of Service April 26, 2024 Assessment & Plan (1) Hypovolemic shock: Plan: Presented with severe hypotension (low 49/33) and diarrheal illness. Reported malaise x 1.5 weeks and severe diarrhea x 4 days. Suspect hypovolemic shock due to significant volume contraction in setting of GI losses 2nd to diarrhea from obinutuzumab Initially admitted to ICU as patient required vasopressors and stress dose steroids after BP not improved after multiple IV boluses, stabilized and downgraded off ICU 04/21 Gallbladder US showed small amount of sludge; no concern for acute cholecystitis CXR unremarkable Random cortisol 15.75 (technically WNL, but would expect cortisol to be elevated given patient's stress/illness level) C. diff negative, stool biofire negative, fecal occult negative, blood cultures negative x48 hours Stress dosed steroids -- last dose of hydrocortisone 04/24 AM (was given additional hydrocortisone AM 04/25 and continued prior to switch as below) Empirically treated with Zosyn for GI source, but discontinued since blood cultures negative >48 hours s/p EGD and c-scope with Dr Celeste 04/24 > EGD and colonoscopy with biopsies to evaluate for chemotherapy-induced colitis 04/24 - EGD: Normal esophagus, mild gastritis, normal duodenum. Await pathology results to rule out enteritis. - Colonscopy: Jaime score of 1 throughout the colon with some sparing in the transverse colon. Pathology from EGD/c-scopes noting acute chronic duodenitis with ulceration and villous atrophy, also noting SEVERE ACTIVE chronic colitis with ulceration throughout the colon and was placed on METHYLPREDNISOLONE 30mg IV BID 04/25 04/26 IMPROVED, continues on Solumedrol 30mg IV BID. Only 2 BM, no further diarrhea following eating (suspect had inflammatory bowel disease per discussion w/ patient PRIOR to starting her chemotherapy given sx, only worsened w/ starting chemo) -- Discussed w/ GI provider and planning for StEROID TAPER at dc, 60mg x 7 days, then 50mg x 7 days, 40mg x 7 days, 30mg x 7 days, 20mg x 7 days, 10mg x 7 days then drop to 5mg for 7 days to complete taper -- GI sent for Quant gold/hepatitis testing if nonresponder but has had significant improvement since starting Some LE edema today, lasix 20mg PO to be resumed. Continues on metoprolol. Losartan on hold but if BP/electrolytes stable can consider resuming in AM but did discuss w/ patient possibly holding off this for another couple of days and would rec to check BPs at home/follow up with PCP. Diet low fiber --> regular per GI but avoid caffeine/dairy, orders have been placed Continues on PPI, increased to BID for duodenitis on imaging. Have sent rx for PPI BID and steroid taper in event no issues overnight and can plan for dc in AM on PPI/prednisone with outpatient follow up with GI/oncology HOPEFUL DC IN AM, lives in [place] (2) ARF (acute renal failure): Plan: ARK with associated metabolic acidosis on admission, suspect prerenal etiology in the setting of GI losses and poor oral intake Baseline Cr ~1.6 Cr on admission 4.46, non-oliguric, uric acid not elevated (prior was but recently normal) and had been started on allopurinol 04/03. NO STONES noted on CTAP IVF hydration/steroids as above. Home BP meds on HOLD and improvement in UOP/renal function and now BACK TO BASELINE BUN/Cr 18/1.59 and Lasix resumed as above for 04/26 given decreased diarrhea/electrolytes stable and having slight increase in LE edema today likely from holding and from steroids/fluid retention (despite weight down in system). Renal dose meds/avoid toxins. Monitor renal function in AM, consideration to resume losartan pending serial BPs vs holding off for now. (3) Diarrhea: Plan: Severe diarrhea x 4 days prior to admission after receiving the third dose of obinutuzumab. Patient reported couple episodes of black bowel movements at home interestingly reported having diarrhea following meals PRIOR to starting chemo, ?worsened w/ obinutuzumab therapy? C. difficile, Stool BioFire, Fecal occult negative on admission GI consulted, oncology given symptom timeline with obinutuzumab therapy > Checking calprotectin level on stool sample to evaluate for colitis; monitor for results > Scheduled for treatment on 04/26, which oncology suspects to be delayed in order to rule out obinutuzumab induced colitis GI consulted > EGD and colonoscopy with biopsies to evaluate for chemotherapy-induced colitis 04/24 - EGD: Normal esophagus, mild gastritis, normal duodenum. Await pathology results to rule out enteritis. - Colonscopy: Jaime score of 1 throughout the colon with some sparing in the transverse colon. Follow-up pathology results. Cdiff negative on repeat given PPI BID PATHOLOGY ABOVE CONCERNING FOR SEVERE COLITIS, IMPROVEMENT/LESS DIARRHEA WITH STEROIDS AND PLANNING TAPER AT AL (4) Hypertension: Plan: Takes Losartan 25 mg daily, metoprolol 12.5 mg BID, and aspirin 81 mg daily at home Losartan on hold due to ARF which has improved and resolved Metoprolol continued, lasix to resume for today for edema/fluid retention. Monitor BPs in AM/renal function to consider resumption of her losartan vs holding at dc Plan Chronic stable issues: CLL/SLL: Follows with CCP. See above, presented after her treatment w/ increased GI losses/diarrhea LAINE: Continue CPAP at bedtime VTE PPx: Heparin SQ BID continued and blood counts stable/improved with steroid treatment. Dispo: continued inpatient stay on IV steroids but if continued improvement planning for DC in AM 04/27. Have sent prednisone taper and PPI BID rx to her pharmacy and discussed sx to return to ER for increased pain/diarrhea/fever/fatigue/bowel changes/etc. PT/OT consults pending but has had SIGNIFICANT improvement and do not suspect any needs at wi Of note, does have family hx DM and Glu 133 on AM labs and will check A1c w/ AM labs to ensure stable/not needing any coverage w/ ongoing steroid therapy Admission and Anticipated Discharge Date Admission Date: April 20, 2024 Supervising Physician Co-Signing Physician Notes The patient was not seen by me. The chart was reviewed. Case discussed with ULYSSES Sewell. Agree with assessment and plan Subjective Evaluated this morning, sitting up in chair, appears SIGNIFICANTLY improved. 2BM. Discussed pathology, IV steroids and planning for taper but also have ordered testing in case non-responder to steroids. Interestingly, further discussion she did have ongoing diarrhea about 30min after eating for a while but wsa only worsened to the point of concern after starting chemo and discussed likely underlying inflammatory bowel disease present prior to starting treatment. Has NOT had diarrhea following breakfast this morning, feeling WELL. Will touch base w/ GI about steroid taper at wi and plan to continue protonix twice daily. Discussed resuming lasix for AM for fluid retention from steroids but will hold off losartan for now. A1c w/ AM labs given family hx DM/Glu 133 on AM labs to ensure no needs on ongoing steroids. She is from [place] and hopeful to [place] in AM tomorrow. Will plan to send medications this evening. Questions/concerns addressed at this time. Physical Exam 2 Physical Exam: General: 58yo female, obese, sitting up in bed, MUCH improved, NAD HEENT: head atraumatic, normocephalic, mmm, trachea midline Chest: port looks good to LEFT chest, no evidence for infection Resp: even/unlabored, slightly diminished in the bases but on room air 96%, no w/c/r CV: RRR, no significant m/r/g, no pitting edema GI: +BS throughout, soft, obese, nontender no mcfarland MSK/Neuro: generalized weakness but nonfocal Psych: AOx3 ,cooperative with exam Results & Data Results & Data Vital Signs (Past 12 Hours) Vital Signs Temp Pulse Pulse Resp BP Pulse Ox O2 Del Method 04/26/24 07:03 76 04/26/24 04:25 36.7 C 79 18 125/77 96 BiPAP 04/26/24 04:14 79 21 96 04/25/24 23:10 36.8 C 76 18 103/63 95 Room Air 04/25/24 22:39 75 FiO2 04/26/24 07:03 04/26/24 04:25 04/26/24 04:14 21 04/25/24 23:10 04/25/24 22:39 Laboratory Results 04/26/24 06:05 04/26/24 06:05 Diagnostic Findings 04/26/24 06:05 04/26/24 06:05 Mag 2.1 Cdiff negative Calprotectin level pending PG Care Time/CCT Total # of Minutes Spent Total Time Spent with Patient: Total time spent is greater than 50% in coordination of care (as documented) at patient's floor/unit and/or counseling patient: Coding Level of Care Code 71150 SUB INP/OBS CARE 3/50MIN Diagnoses Hypovolemic shock R57.1 ARF (acute renal failure) N17.9 Diarrhea R19.7 Diarrhea type: unspecified type Hypertension I10 (3) Diarrhea Diarrhea type: unspecified type Qualified Code(s): R19.7 - Diarrhea, unspecified
--- NOTE | 2024-04-26 09:36 | Gastroenterology Progress Note ---
Date of Service April 26, 2024 Assessment & Plan (1) Diarrhea: Plan: 58 year old female with history of CLL, HTN, LAINE and DM admitted 04/20 w/ diarrhea and hypovolemic shock. C. diff negative, stool biofire negative, fecal occult negative. CT w/o intestinal obstruction or focal inflammatory process, ABD US w/ GB distention and sludge. S/P EGD/Colon w/ biopsies concerning for severe active chronic colitis with ulceration and focal crypt abscesses. 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 Admission and Anticipated Discharge Date Admission Date: April 20, 2024 Supervising Physician Co-Signing Physician Notes I examined the patient and reviewed the medical record, laboratory data and imaging studies. I agree with the assessment and plan of care as suggested by the advanced practice provider. Patient is sitting in the chair and she states that she feels a lot better today she feels that her stools are forming up a little bit however she still had about 12 bowel movements yesterday but this was that was the first day of Solu-Medrol would continue to monitor for bowel output placed on a high-fiber diet avoid milk products monitor intake and output for to ensure patient does not get dehydrated correct electrolytes and we will continue to follow her with you Subjective Starting to feel improved. Tolerating diet. Denies abd pain. No nausea, vomiting or abd pain reported. Suggests her stools are starting to become more formed but still loose. Had a total of 12 BMs yesterday. Notes she did not wake up to move her bowels last evening. This AM 2 stools. Bx 2023: A. Duodenum, second portion, biopsy: - Active chronic duodenitis with ulceration and villous atrophy B. Duodenum, bulb, biopsy: - Active chronic duodenitis with ulceration and villous atrophy C. Stomach, antrum and body, biopsy: - Chronic active gastritis - Negative for Helicobacter pylori organisms D. Terminal ileum, biopsy: - Active chronic ileitis with focal ulceration - Negative for granulomas E. Colon, right, biopsy: - Severe active chronic colitis with ulceration and focal crypt abscesses - Negative for granulomas F. Colon, transverse, biopsy: - Severe active chronic colitis with ulceration and frequent crypt abscesses - Negative for granulomas G. Colon, descending, biopsy: - Severe active chronic colitis with ulceration and focal crypt abscesses - Negative for granulomas H. Colon, rectosigmoid, biopsy: - Active chronic colitis with ulceration and focal crypt abscesses - Negative for granulomas Comment: The overall picture is highly concerning for inflammatory bowel disease. Other causes could be infectious or drug effect related. Clinical correlation required EGD 2023: Normal esophagus. Mild gastritis. Normal duodenum. Biopsy done for H. Pylori and from the second portion of duodenum and from duodenal bulb Colonoscopy 2023: - There was a Jaime score of one throughout the colon with some sparing in the transverse colon - Biopsies taken from the terminal ileum and throughout the colon Review of Systems 2 Review of Systems: All other findings negative except as noted in HPI. Physical Exam Constitutional: WD/WN, vitals as above Respiratory: normal respiratory effort, lungs clear to auscultation Cardiovascular: Rate/Rhythm: regular rate and regular rhythm Gastrointestinal (Abdomen): normal bowel sounds, soft, nontender, no hepatosplenomegaly Skin: no rashes, warm and dry Results & Data Results & Data Vital Signs (Past 12 Hours) Vital Signs Temp Pulse Pulse Resp BP Pulse Ox O2 Del Method 04/26/24 07:15 36.5 C 71 19 108/71 96 Room Air 04/26/24 07:03 76 04/26/24 04:25 36.7 C 79 18 125/77 96 BiPAP 04/26/24 04:14 79 21 96 04/25/24 23:10 36.8 C 76 18 103/63 95 Room Air 04/25/24 22:39 75 FiO2 04/26/24 07:15 04/26/24 07:03 04/26/24 04:25 04/26/24 04:14 21 04/25/24 23:10 04/25/24 22:39 Laboratory Results 04/26/24 04/25/24 Range/Units 06:05 15:30 WBC 7.19 (4.8-10.8) K/ul RBC 4.07 L (4.20-5.40) M/uL Hgb 11.5 L (12.0-16.0) g/dl Hct 35.2 L (37.0-47.0) % MCV 86.5 (80.0-100.0) fL MCH 28.3 (25.0-34.0) pg MCHC 32.7 (32.0-36.0) g/dL RDW Std Deviation 46.4 H (36.4-46.3) fL RDW Coeff of Dimitri 14.9 H (11.5-14.5) % Plt Count 235 (130-400) K/uL MPV 9.4 (9.4-12.4) fL Absolute Nucleated RBC 0.02 (0.00-0.12) K/uL Nucleated RBC % (auto) 0.3 % Sodium 141 (136-145) mmol/L Potassium 3.7 (3.5-5.1) mmol/L Chloride 110 H (98-107) mmol/L Carbon Dioxide 22 (21-32) mmol/L Anion Gap 9 (3-11) BUN 18 (6-23) mg/dl Creatinine 1.59 H (0.6-1.2) mg/dl Est Cr Clr Drug Dosing 51.7 ml/min eGFR 37.67 BUN/Creatinine Ratio 11.3 (10-20) Glucose 133 H (70-99(Fasting)) mg/dl Calcium 9.3 (8.6-10.3) mg/dl Magnesium 2.1 (1.7-2.4) mg/dl Stool Calprotectin Pending Stl C. diff Tox B Gene Negative Cdiff Gene (Neg) PG Care Time/CCT Total # of Minutes Spent Total Time Spent with Patient: Total time spent is greater than 50% in coordination of care (as documented) at patient's floor/unit and/or counseling patient: Coding Level of Care Code 74704 SUB INP/OBS CARE 2/35MIN Diagnoses Diarrhea R19.7 Diarrhea type: unspecified type (1) Diarrhea Diarrhea type: unspecified type Qualified Code(s): R19.7 - Diarrhea, unspecified
--- NOTE | 2024-04-26 12:11 | Communication Note ---
Date of Service: April 26, 2024 Resent prescription for prednisone as SAMIRA reporting Dr Rodriguez requesting 80mg daily x 4 weeks before tapering down by 10mg weekly. Updated discharge inst ructions. Monitor A1c level in AM given ongoing steroids to ensure no need for once daily insulin to prevent hyperglycemia. Will add BSG AC/HS checks. Have downgraded off Telemetry given stable BP/no issues and electrolytes/renal function improved back to baseline.
[2024-04-26] MEDS: POTASSIUM CHLORIDE CRTAB 20 MEQ TABCR PO STA (12:16)
[2024-04-27] MEDS ORDERED: predniSONE 20 MG TAB PO SCH
[2024-04-27 07:22] VITALS: TEMP 97.9; O2SAT 95
[2024-04-27 07:26] LABS: BUN Creatinine Ratio 16.3 (10-20); Creatinine Clr Calc Pharmacy 55.3 ml/min; Potassium 3.8 mmol/L (3.5-5.1)
[2024-04-27 07:34] LABS: Estimated Average Glucose 128 mg/dl; Hemoglobin A1C 6.1 % (4.5-5.6)
--- NOTE | 2024-04-27 07:46 | Discharge Summary ---
Discharge Summary Date of Service April 27, 2024 Principal Dx & Hospital Course #1 = Principal Diagnosis (1) Hypovolemic shock: Presented with severe hypotension (low 49/33) and diarrheal illness. Reported malaise x 1.5 weeks and severe diarrhea x 4 days. Suspect hypovolemic shock due to significant volume contraction in setting of GI losses 2nd to diarrhea from obinutuzumab Initially admitted to ICU as patient required vasopressors and stress dose steroids after BP not improved after multiple IV boluses, stabilized and downgraded off ICU 04/21 Gallbladder US showed small amount of sludge; no concern for acute cholec ystitis CXR unremarkable Random cortisol 15.75 (technically WNL, but would expect cortisol to be elevated given patient's stress/illness level) C. diff negative, stool biofire negative, fecal occult negative, blood cultures negative x48 hours Stress dosed steroids -- last dose of hydrocortisone 04/24 AM (was given additional hydrocortisone AM 04/25 and continued prior to switch as below) Empirically treated with Zosyn for GI source, but discontinued since blood cultures negative >48 hours s/p EGD and c-scope with Dr Celeste 04/24 > EGD and colonoscopy with biopsies to evaluate for chemotherapy-induced colitis 04/24 - EGD: Normal esophagus, mild gastritis, normal duodenum. Await pathology results to rule out enteritis. - Colonscopy: Jaime score of 1 throughout the colon with some sparing in the transverse colon. Pathology from EGD/c-scopes noting acute chronic duodenitis with ulceration and villous atrophy, also noting SEVERE ACTIVE chronic colitis with ulceration throughout the colon and was placed on METHYLPREDNISOLONE 30mg IV BID 04/25 04/26 IMPROVED, continues on Solumedrol 30mg IV BID. Only 2 BM, no further diarrhea following eating (suspect had inflammatory bowel disease per discussion w/ patient PRIOR to starting her chemotherapy given sx, only worsened w/ starting chemo) -- Discussed w/ GI provider and planning for StEROID TAPER at dc, 60mg x 7 days, then 50mg x 7 days, 40mg x 7 days, 30mg x 7 days, 20mg x 7 days, 10mg x 7 days then drop to 5mg for 7 days to complete taper -- GI sent for Quant gold/hepatitis testing if nonresponder but has had significant improvement since starting Some LE edema today, lasix 20mg PO to be resumed. Continues on metoprolol. Losartan on hold but if BP/electrolytes stable can consider resuming in AM but did discuss w/ patient possibly holding off this for another couple of days and would rec to check BPs at home/follow up with PCP. Diet low fiber --> regular per GI but avoid caffeine/dairy, orders have been placed Continues on PPI, increased to BID for duodenitis on imaging. Have sent rx for PPI BID and steroid taper in event no issues overnight and can plan for dc in AM on PPI/prednisone with outpatient follow up with GI/oncology HOPEFUL DC IN AM, lives in [place] (2) ARF (acute renal failure): ARF with associated metabolic acidosis on admission, suspect prerenal etiology in the setting of GI losses and poor oral intake Baseline Cr ~1.6. Cr on admission 4.46. Now down to 1.5 and stable. (3) Diarrhea: Severe diarrhea x 4 days prior to admission after receiving the third dose of obinutuzumab. Patient reported couple episodes of black bowel movements at home interestingly reported having diarrhea following meals PRIOR to starting chemo, ?worsened w/ obinutuzumab therapy? C. difficile, Stool BioFire, Fecal occult negative on admission GI consulted, oncology given symptom timeline with obinutuzumab therapy > Checking calprotectin level on stool sample to evaluate for colitis; monitor for results > Scheduled for treatment on 04/26, which oncology suspects to be delayed in order to rule out obinutuzumab induced colitis GI consulted > EGD and colonoscopy with biopsies to evaluate for chemotherapy-induced colitis 04/24 - EGD: Normal esophagus, mild gastritis, normal duodenum. Await pathology results to rule out enteritis. - Colonscopy: Jaime score of 1 throughout the colon with some sparing in the transverse colon. Follow-up pathology results. Cdiff negative on repeat given PPI BID PATHOLOGY ABOVE CONCERNING FOR SEVERE COLITIS, IMPROVEMENT/LESS DIARRHEA WITH STEROIDS AND PLANNING TAPER AT DC (4) Hypertension: Takes Losartan 25 mg daily, metoprolol 12.5 mg BID, and aspirin 81 mg daily at home Losartan held during hospitalization due to to ARF which has improved and resolved. This will be restarted at discharge Metoprolol continued, lasix has been restarted Plan Chronic stable issues: CLL/SLL: Follows with [facility]. See above, presented after her treatment w/ increased GI losses/diarrhea LAINE: Continue CPAP at bedtime VTE PPx: Heparin SQ BID continued and blood counts stable/improved with steroid treatment. Dispo: Home today, April 27, on prednisone 40 mg twice daily until further notice. She will follow-up with her primary care provider and gastroenter ologist and oncologist as soon as possible Admission HPI Per Admitting Provider Eveline is a pleasant 58-year-old female with PMH of CLL, HTN, sleep apnea, and diabetes. She presented on 04/20 at the behest of the [facility] for diarrhea and dehydration that began on Wednesday night 04/16. Patient reports that the diarrhea is liquidy in consistency, and that yesterday it was black. It has been so frequent that she had to put a depends briefs on because it was constantly coming out. No prior history of GI bleeds. No prior history of C. difficile infections. She does report she was on antibiotics 2 weeks ago for 7 days (prescribed by Dr. Conde). She also reports she has had intermittent fevers over the last 4 days (ranging up to 101 F), and she has been rotating Tylenol and ibuprofen for the fevers. She has been taking Imodium for the diarrhea, but reports this has not been helping. She also tried another OTC antidiarrheal agent (Kaopectate x 2 doses).patient reports that she took all her regular morning medicines today. Only recent change in medications was that she was started on allopurinol on 04/03. No prior history of abdominal surgeries. Patient is currently undergoing treatment at the [facility] for her CLL. Her last treatment was last Thursday 04/12, and she does report that she has "not felt right since". No sick contacts to her knowledge. She does endorse intermittent abdominal pain, that she characterizes as "hot cramping"; (, she had applied an ice pack to her stomach yesterday. Patient is not eating or drinking much this past week. She denies smoking, tobacco use, recent alcohol use. Patient's blood pressure was 75/57 on arrival. Patient's blood pressure was cycled at the bedside and it was 49/33. After IVF boluses (4000 mL), patient's BP is ~90/60 at time of admission. Vitals otherwise stable. ED course: NSS 1000 mL IV x 2 Zofran 4 mg IV Morphine sulfate 4 mg IV Cefepime 2000 mg IV Hydrocortisone 100mg IV ROS: Patient endorses black/liquidy diarrhea x 4 days, fever, chills, night sweats, dizziness, presyncope, dyspnea on exertion (patient has trouble walking up steps, but reports this is not new for her), dry cough, abdominal cramping, and mild nausea. Patient denies syncope, headache, rashes, tick bites, chest pain, chest p alpitations, SOB at rest, pleuritic CP, vomiting, burning with urination, numbness or tingling in the arms or legs, or BRB in the stool or urine. Discharge Exam General-alert and oriented x3, no fever, no chills HEENT-head atraumatic and normocephalic, pupils equal and reactive to light, extraocular muscles intact Neck-no lymphadenopathy or thyromegaly, trachea midline Chest-clear to auscultation. No rales, wheezing or rhonchi Cardiac-regular rate and rhythm, normal S1 and S2 Abdomen-normal bowel sounds, no hepatosplenomegaly Extremities-no cyanosis, clubbing, or edema Neuro-cranial nerves II through XII intact, motor and sensory function within normal limits, strength symmetrical, no focal deficits Psych-normal affect, normal mood Discharge Plan Discharge Items Patient Disposition: Home - Self-Care Reason For Visit: HYPOTENSION, DIARRHEA, SEPSIS Discharge Diagnosis: Suspected inflammatory colitis, protracted diarrhea, systemic hypotension due to volume depletion, possible sepsis Activity: Resume your previous activity Non-emergency contact: Primary Care Provider, [employer] and Oncologist Call non-emergency contact if: you have any medication questions and your symptoms worsen Follow-up/Referrals: Emilee Gil PA-C [Primary Care Provider] - Diet: Carb Consistent or DM2 Addtl Attending Provider Instructions: You have been hospitalized for severe dehydration and kidney injury, likely from GI losses/diarrhea, which are suspected to be from your chemotherapy per oncology consultation, HOWEVER I suspect you had underlying inflammatory bowel disease PRIOR to starting chemotherapy, which made this worse. You were treated with aggressive IV fluids and steroids and your blood pressure medications were held. Renal function has improved back to baseline and GI was consulted for ongoing diarrhea symptoms for evaluation. You underwent EGD/colonoscopy and pathology is suspicious for underlying inflammatory bowel disease as well as gastritis (inflammation of the upper part of the GI tract). We INCREASED your protonix to TWICE daily and are continuing this at discharge. Stool calprotectin level was obtained and ___PENDING____ at discharge. Likely will be elevated with inflammatory bowel disease. Additoinal testing has been sent in case not responding to steroids but have appeared MUCH improved and responding to them while in the hospital, which is treatment for inflammatory bowel disease. We had provided IV steroids and at discharge are sending a prescription for prednisone 20 mg tablets to your pharmacy. Take 2 tablets twice a day until further notice. The dosage will eventually be decreased by 10 mg on a weekly basis Cdiff testing was NEGATIVE. Please follow up with primary care as well as hematology/oncology for ongoing management and follow up from hospitalization. Please return to the ER with any increased diarrhea, fever, abdominal pain, or for any other symptoms concerning for you. It has been a pleasure being a part of the medical team providing for you while you have been in the hospital. Pending Studies at Discharge: Yes Studies:: stool calprotectin level, QuantiFERON gold, hepatitis panel Stand-Alone Forms: My [facility] [employer], Smoking Cessation Medications and DC Order Prescriptions: New prednisone 20 mg tablet 40 mg PO BID Qty: 60 0RF prednisone 20 mg Tablet 40 mg PO BID Qty: 0 0RF Continued famotidine [Pepcid] 20 mg tablet 20 mg PO HS PRN (Reason: Other) cetirizine 10 mg Tablet 10 mg PO QAM PRN (Reason: Allergy Symptoms) aspirin 81 mg Tablet,Chewable 81 mg PO QAM furosemide 20 mg Tablet 20 mg PO QAM losartan 25 mg Tablet 25 mg PO QAM metoprolol tartrate 25 mg Tablet 12.5 mg PO BID ondansetron HCl 8 mg tablet 8 mg PO DIRECTED PRN (Reason: n/v) prochlorperazine maleate 10 mg tablet 10 mg PO DIRECTED PRN (Reason: n/v) allopurinol 300 mg tablet 300 mg PO PM Venclexta Starting Pack 10 mg-50 mg- 100 mg tablets,dose pack 1 ea PO UD Rx Instructions: hasnt started yet Cleavers 20 ml PO QAM [place] T[place] 20 ml PO QAM turmeric 1 cap PO BID Patient Comments: unknown strength Changed pantoprazole 40 mg Tablet,Delayed Release (Dr/Ec) 40 mg PO BID Qty: 60 1RF Discharge Orders: Discharge Order (Routine); Ordered 04/27/24 Ordered By: Jaun Baez Admission Data Admit Date/Time: 04/20/24 19:42 Attending Provider: Jaun Baez Admit Provider: Jaime Dewitt Primary Care Provider: Emilee Gil Other Providers: Jaime Dewitt; Caroline Abel; Ann Larios; Tristen Celeste Other Interventions: Discharge Summary Assessment (RN) Last Done: 04/24/24 15:07 Hospital Stay Data Consultations 04/20/24 17:02 ED Decision to Admit Stat 04/20/24 19:42 Consult Pvc Loader Routine 04/22/24 09:48 Consult Oncology Routine 04/23/24 07:50 Consult Gastroenterology Routine Procedures Performed Operation Date: 04/24/24 17:40 Actual Procedures p EGD Biopsy Cytology - Temo Rodriguez MD s Colonoscopy Biopsy Cytology - Temo Rodriguez MD Diagnostic Imagining Performed 04/20/24 16:13 CT abd pelvis wo con Stat 04/20/24 21:45 US gallbladder Routine Pending Results Patient Have Any Pending Studies at Discharge: Yes Discharge Instructions Given to Patient (Per Discharging Provider) You have been hospitalized for severe dehydration and kidney injury, likely from GI losses/diarrhea, which are suspected to be from your chemotherapy per oncology consultation, HOWEVER I suspect you had underlying inflammatory bowel disease PRIOR to starting chemotherapy, which made this worse. You were treated with aggressive IV fluids and steroids and your blood pressure medications were held. Renal function has improved back to baseline and GI was consulted for ongoing diarrhea symptoms for evaluation. You underwent EGD/colonoscopy and pathology is suspicious for underlying inflammatory bowel disease as well as gastritis (inflammation of the upper part of the GI tract). We INCREASED your protonix to TWICE daily and are continuing this at discharge. Stool calprotectin level was obtained and ___PENDING____ at discharge. Likely will be elevated with inflammatory bowel disease. Additoinal testing has been sent in case not responding to steroids but have appeared MUCH improved and responding to them while in the hospital, which is treatment for inflammatory bowel disease. We had provided IV steroids and at discharge are sending a prescription for prednisone 20 mg tablets to your pharmacy. Take 2 tablets twice a day until further notice. The dosage will eventually be decreased by 10 mg on a weekly basis Cdiff testing was NEGATIVE. Please follow up with primary care as well as hematology/oncology for ongoing management and follow up from hospitalization. Please return to the ER with any increased diarrhea, fever, abdominal pain, or for any other symptoms concerning for you. It has been a pleasure being a part of the medical team providing for you while you have been in the hospital. Total Time Total Time Spent Total Time Spent (In Minutes): 50 minutes Coding Level of Care Code 28528 INP/OBS DISCH >30 MIN Diagnoses Hypovolemic shock R57.1 ARF (acute renal failure) N17.9 Diarrhea R19.7 Diarrhea type: unspecified type Hypertension I10
[2024-04-27] MEDS: predniSONE 20 MG TAB PO SCH (08:52)
[2024-04-27 09:44] VITALS: BP 95/66; PULSE 70; RESP 14
[2024-04-27] MEDS: PANTOprazole 40 MG TAB PO SCH (09:46)
[2024-04-27] MEDS: FUROSEMIDE 20 MG TAB PO SCH (09:47)
[2024-04-27] MEDS ORDERED: predniSONE 20 MG TAB PO ONE (21:00)
[2024-04-29 12:02] LABS: Hepatitis A Antibody IgM NON-REACTIVE (NON-REACTIVE); Hepatitis A Antibody Total REACTIVE (NON-REACTIVE); Hepatitis B Core Antibody IgM NON-REACTIVE (NON-REACTIVE)
[2024-04-30 15:08] LABS: Quantiferon Mitogen-NIL 8.19 IU/mL; Quantiferon NIL 0.02 IU/mL; Quantiferon TB Gold Plus NEGATIVE (NEGATIVE)
[2024-05-01 09:02] LABS: Hep B Surface Ag with confirm Negative (Negative)
[2024-05-01 09:07] LABS: Hep C Ab Rflx HepCQuant RNA Negative (Negative)
== END 2024-04-27 11:30 | disposition home or self-care (01) | DRG 393 ==
LOC: ED 15:59 → SUATTDRO 19:42 → 1E 19:42 → 2S 04-21 15:24 → 3W 04-26 14:50

== ENCOUNTER 2024-06-09 13:03 | Inpatient (IN) ==
--- NOTE | 2024-06-09 13:20 | XRay Report ---
XR chest 1V portable CLINICAL HISTORY: Dyspnea COMPARISON STUDY: 04/20/2024 FINDINGS: Stable chest. Heart size and pulmonary vasculature are normal. There is interval patchy opa [place] in the lung bases. No pleural effusion or pneumothorax. IMPRESSION: Bilateral lung base pneumonia. ACT 112: Negative or not required by law. Electronically signed by: Cristobal Paris M.D. 06/09/2024 1:19 PM
[2024-06-09 14:00] LABS: Hematocrit (blood only) 37.9 % (37.0-47.0); Hemoglobin 12.1 g/dl (12.0-16.0); Mean Corpuscular Hemoglobin 28.9 pg (25.0-34.0); Mean Corpuscular Hgb Conc 31.9 g/dL (32.0-36.0); Mean Corpuscular Volume 90.5 fL (80.0-100.0); Mean Platelet Volume 9.6 fL (9.4-12.4); Nucleated RBC # (auto) 0.03 K/uL (0.00-0.12); Nucleated RBC % (auto) 0.4 %; Platelet Count 257 K/uL (130-400); RDW Standard Deviation 53.1 fL (36.4-46.3); Red Blood Count 4.19 M/uL (4.20-5.40); White Blood Count 7.77 K/ul (4.8-10.8)
[2024-06-09 14:02] LABS: Base Excess VBG 6.4 mEq/L; HCO3 VBG 32 mmol/L; Oxygen Saturation VBG 74.9 %; PCO2 VBG 48 mmHg (38-50); PO2 VBG 42 mmHg; pH VBG 7.43 (7.36-7.41)
[2024-06-09 14:15] LABS: Albumin Globulin Ratio 0.9 (0.9-2); Albumin Level 3.3 gm/dl (3.4-5.0); BUN Creatinine Ratio 15.3 (10-20); Bilirubin,Total 0.6 mg/dl (0.2-1.0); Calcium 10.1 mg/dl (8.6-10.3); Creatinine Clr Calc Pharmacy 52.7 ml/min; Globulin 3.5 gm/dl (2.5-4.0); Magnesium 1.7 mg/dl (1.7-2.4); Potassium 3.7 mmol/L (3.5-5.1); Total Protein 6.8 gm/dl (6.0-8.3)
[2024-06-09 14:20] LABS: INR 1.1 (0.9-1.1); Prothrombin Time 11.4 Seconds (9.0-12.0); Troponin I High Sensitivity 18.1 pg/ml (0-14)
[2024-06-09 14:29] LABS: Basophils # (auto) 0.06 K/uL (0.00-0.20); Basophils % (auto) 0.8 %; Dohle Bodies 1+; Eosinophils # (auto) 0.03 K/uL (0.00-0.50); Eosinophils % (auto) 0.4 %; Immature Granulocytes # (auto) 0.11 K/uL (0.01-0.20); Immature Granulocytes % (auto) 1.4 %; Lymphocytes # (auto) 0.24 K/uL (1.20-3.40); Lymphocytes % (auto) 3.1 %; Monocytes # (auto) 0.41 K/uL (0.11-0.59); Monocytes % (auto) 5.3 %; Neutrophils # (auto) 6.92 K/uL (1.40-6.50); Toxic Granulation 1+
[2024-06-09 14:41] LABS: Adenovirus PCR Not Detected (NotDetected); Bordetella parapertussis PCR Not Detected (NotDetected); Bordetella pertussis PCR Not Detected (NotDetected); Chlamydia pneumoniae PCR Not Detected (NotDetected); Coronavirus 229E PCR Not Detected (NotDetected); Coronavirus CoV-2 (COVID19)PCR Not Detected (NotDetected); Coronavirus HKU1 PCR Not Detected (NotDetected); Coronavirus NL63 PCR Not Detected (NotDetected); Coronavirus OC43PCR Not Detected (NotDetected); Human Metapneumovirus PCR DETECTED (NotDetected); Influenza A PCR Not Detected (NotDetected); Influenza B PCR Not Detected (NotDetected); Mycoplasma pneumoniae PCR Not Detected (NotDetected); Parainfluenza Virus 1 PCR Not Detected (NotDetected); Parainfluenza Virus 2 PCR Not Detected (NotDetected); Parainfluenza Virus 3 PCR Not Detected (NotDetected); Parainfluenza Virus 4 PCR Not Detected (NotDetected); Respiratory Syncytial VirusPCR Not Detected (NotDetected); Rhinovirus/Enterovirus PCR Not Detected (NotDetected)
--- NOTE | 2024-06-09 15:00 | Emergency Department Note ---
Impression & Plan Acute hypoxemic respiratory failure, Human metapneumovirus (hMPV) pneumonia, Bilateral pneumonia ED Provider Note HISTORY OF PRESENT ILLNESS: Patient is a 58-year-old female presenting with shortness of breath and fatigue. Patient reports for the last week she has been feeling generally unwell. Reports feeling very short of breath and having a cough that is nonproductive. She went to an outpatient appointment and was found to be saturating 84% on room air. She does not wear any supplemental oxygen at baseline. She was referred to the emergency department via ALS. EMS gave the patient a breathing treatment and route and 125 mg IV Solu-Medrol. On arrival to the ER, the patient reports feeling only slightly improved. Denies any chest pain but does report it feels like her chest is tight when she is trying to breathe. Denies any DVT or PE history. She did receive immunotherapy in March 2024. She has not had any chemotherapy or immunotherapy since. Denies any notable fevers at home. Denies any known sick contact exposures. Denies any abdominal pain, nausea or vomiting. Denies any dysuria or hematuria. ROS: as above PHYSICAL EXAM: Constitutional: Patient appears in no acute distress. Morbidly obese HENT: Head: Normocephalic and atraumatic. Eyes: EOMI, PERRL Mouth/Throat: Mucous membranes moist. Neck: Trachea midline. Neck supple. Cardiovascular: Tachycardic with regular rhythm. No murmurs, rubs or gallops. Intact distal pulses. Pulmonary/Chest: No respiratory distress. Breath sounds clear and equal bilaterally. No wheezes or rales. Abdominal: Abdomen soft, no tenderness, rebound or guarding. Musculoskeletal: No edema, tenderness or deformity noted. Skin: Warm and dry. No rash, erythema, pallor or cyanosis Psychiatric: Appropriate mood and affect for situation. Neurological: Alert and keenly responsive. CN II-XII grossly intact, moving all extremities equally and fully. MDM: - Vitals signs showed hypotensive, tachycardic and hypoxic. Patient placed on 6 L via oxi-mask. - History obtained via patient. History as above. - Chronic conditions affecting care: morbid obesity; DM-2; HTN; chronic lymphocytic leukemia - Differential diagnoses include, but are not limited to: Congestive heart failure; acute coronary syndrome; COPD/asthma exacerbation; pulmonary edema; pulmonary embolism; pneumonia; pneumothorax; viral syndrome - Order placed for continuous cardiac monitoring. At this time, monitor showed rate of 105 bpm with sinus rhythm, per my interpretation. - External medical records reviewed. Discharge summary dated 04/27/2024 was reviewed. Patient was admitted that time for hypovolemic shock secondary to volume contraction in the setting of GI losses. - EKG interpreted by myself showed normal sinus rhythm. Rate tachycardic at 109 bpm. QT 314. No acute ischemic changes. Noted have an incomplete right bundle branch block. - Laboratory workup interpreted by myself showed normal WBC; normal PT/INR; normal lactate; normal BNP; stable electrolytes; CKD (Cr 1.5); slightly elevated troponin (18.1); normal procalcitonin - Viral respiratory panel positive for human metapneumovirus - CXR showed bibasilar consolidations, per my interpretation. Radiology interprets these as bilateral pneumonia. - Blood cultures obtained - Given IV cefepime empirically - Given 1L NS. Patient sepsis volume fluid calculation based on ideal body weight is 1636.20 mL. An additional 500 cc NS ordered. Patient's BP improved after initial 1L NS. - CT PE negative for PE, but noted to have diffuse infectious bronchiolitis and developing pneumonia bilaterally. - Discussion was had with comp field case manager about patient's case and need for admission - Hospitalist consulted for admission - [facility] and management. I have personally spent 61 minutes of critical care time in the direct management of this patient. This includes bedside care, interpretation of diagnostic studies, and testing, discussion with consultants, patient, and family members, and other required patient management activities. This 61 minutes is in excess of all separately billable procedures. ASSESSMENT AND PLAN: Diagnosis: Acute hypoxic respiratory failure; human metapneumovirus pneumonia; bilateral pneumonia Plan: admit Past Med/Surg History Problem List (Updated 06/09/24 @ 15:17 by Patricia Wilder MD) Bilateral pneumonia (Acute) Human metapneumovirus (hMPV) pneumonia (Acute) Acute hypoxemic respiratory failure (Acute) Personal history of immune checkpoint inhibitor therapy Noninfective gastroenteritis and colitis Hypovolemic shock ARF (acute renal failure) Sepsis Hypomagnesemia (Acute) Diarrhea (Acute) JEREL (acute kidney injury) (Acute) Colon cancer screening Retroperitoneal lymphadenopathy Medical History (Updated 06/09/24 @ 15:17 by Patricia Wilder MD) DMII (diabetes mellitus, type 2) Diabetes Morbid obesity BMI 51.5 CLL (chronic lymphocytic leukemia) relapsed Hypertension Sleep apnea CPAP Insulin resistance patient states no meds any longer and "not diabetic" History of bronchitis Hypertension Sleep apnea CPAP CLL (chronic lymphocytic leukemia) History of COVID-19 hx 03/2021--mild symptoms, no symptoms now Osteoarthritis Fatty liver GERD (gastroesophageal reflux disease) IBS (irritable bowel syndrome) Hearing deficit Migraine SOB (shortness of breath) on exertion Aortic aneurysm MONITORING - following W/ DR. Carias- "measuring up to 4.2 cm in diameter" per chest CT 04/2021 [place] Cardiac murmur No murmur on exam per 05/28/21 general surgery note Surgical History Port-A-Cath in place (06/02/21) Insertion Access Port with Fluoroscopy(Left) - Cristobal Mina DO, FACS 06/02/2021 pt states it is a power port History of bone marrow biopsy History of lymph node excision CERVICAL History of surgery REMOVAL OF BENIGN GROWTH FROM RLE History of tonsillectomy History of tubal ligation Family History Mother Heart disease Family history of reaction to anesthesia PONV Cancer Hypertension Mother Family history of diabetes mellitus Grandmother Family history of diabetes mellitus Heart disease Cancer Hypertension Social History Smoking Status: Never smoker Tobacco Type: Cigarettes Cigarettes Per Day: quit in college; Second Hand Exposure: No; Do You Dip or Chew Tobacco: No (smoked lightly in college); Hx Alcohol Use: Yes Alcohol type: wine Alcohol Intake Frequency: Monthly or Less Alcohol Intake Frequency Comment: holidays Hx Substance Use: No Preferred Language: Kinyarwanda Communication Ability: Effective Skein Winder Required: No Beliefs That Will Affect Care: None marital status: Current Living Situation: Spouse current occupational status: employed 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 How many Children do You have: 6 Feels Safe at Home: Yes during the past year weight has: increased > 10 lbs Assistive Devices: None Allergies Allergies Allergy/AdvReac Type Severity Reaction Status Date / Time meperidine AdvReac Intermediate LOSS OF Verified 06/09/24 16:26 MEMORY procaine AdvReac Mild INEFFECTIVE Verified 06/09/24 16:26 Home Meds Home Medications Medication Instructions Recorded Confirmed aspirin 81 mg chewable tablet 81 mg PO QAM 11/24/18 05/03/24 cetirizine 10 mg tablet 10 mg PO QAM PRN Allergy Symptoms 11/24/18 05/03/24 furosemide 20 mg tablet 20 mg PO QAM 11/24/18 05/03/24 losartan 25 mg tablet 25 mg PO QAM 05/29/21 05/03/24 metoprolol tartrate 25 mg tablet 12.5 mg PO BID 05/29/21 05/03/24 famotidine 20 mg tablet (Pepcid) 20 mg PO HS PRN Other 04/27/22 05/03/24 allopurinol 300 mg tablet 300 mg PO PM 04/20/24 05/03/24 ondansetron HCl 8 mg tablet 8 mg PO DIRECTED PRN n/v 04/20/24 05/03/24 prochlorperazine maleate 10 mg 10 mg PO DIRECTED PRN n/v 04/20/24 05/03/24 tablet venetoclax 10 mg (14)-50 mg 1 ea PO UD 04/20/24 05/03/24 (7)-100 mg (21) tablets in a dose pack (Venclexta Starting Pack) Previous Rx's Medication Instructions Recorded pantoprazole 40 mg tablet,delayed 40 mg PO BID #60 tabs 04/26/24 release prednisone 10 mg tablet See Rx Instructions PO DAILY #147 05/12/24 tabs Results & Data (ED) Vital Signs Vital Signs - 24 hr 06/09/24 13:18 06/09/24 13:23 06/09/24 13:32 Temperature 36.8 C Temperature Source Oral Pulse Rate 110 H 108 H Pulse Rate [Right Brachial] Pulse Rhythm [Right Brachial] Pulse Strength [Right Brachial] Respiratory Rate 21 Respiratory Effort / Characteristics Non-Labored Spontaneous Respiratory Depth Normal Respiratory Pattern Regular Blood Pressure 92/76 L Blood Pressure [Right Arm] Blood Pressure Mean 81 Blood Pressure Mean [Right Arm] Blood Pressure Position [Right Arm] Pulse Oximetry 84 L 92 Oxygen Delivery Method Room Air Oxymask Oxygen Flow Rate 6 Sepsis New/Unexplained Change in Mental Status N/A Sepsis Action Taken by Nursing Physician Notified 06/09/24 14:49 06/09/24 15:57 06/09/24 16:00 Temperature Temperature Source Pulse Rate Pulse Rate [Right Brachial] 110 H 109 H Pulse Rhythm [Right Brachial] Regular Regular Pulse Strength [Right Brachial] Normal Normal Respiratory Rate 24 22 Respiratory Effort / Characteristics Non-Labored Non-Labored Respiratory Depth Normal Normal Respiratory Pattern Regular Regular Blood Pressure Blood Pressure [Right Arm] 92/76 L 102/73 Blood Pressure Mean Blood Pressure Mean [Right Arm] 81 82 Blood Pressure Position [Right Arm] Lying Lying Pulse Oximetry 92 92 Oxygen Delivery Method Oxymask Oxymask Oxymask Oxygen Flow Rate 6 6 8 Sepsis New/Unexplained Change in Mental Status Sepsis Action Taken by Nursing Laboratory Data 06/09/24 13:32 06/09/24 13:32 Lab Results 06/09/24 06/09/24 06/09/24 Range/Units 13:32 13:50 14:27 WBC 7.77 (4.8-10.8) K/ul RBC 4.19 L (4.20-5.40) M/uL Hgb 12.1 (12.0-16.0) g/dl Hct 37.9 (37.0-47.0) % MCV 90.5 (80.0-100.0) fL MCH 28.9 (25.0-34.0) pg MCHC 31.9 L (32.0-36.0) g/dL RDW Std Deviation 53.1 H (36.4-46.3) fL RDW Coeff of Dimitri 16.0 H (11.5-14.5) % Plt Count 257 (130-400) K/uL MPV 9.6 (9.4-12.4) fL Immature Gran % (Auto) 1.4 % Neut % (Auto) 89.0 % Lymph % (Auto) 3.1 % [place] % (Auto) 5.3 % Eos % (Auto) 0.4 % Baso % (Auto) 0.8 % Neut # (Auto) 6.92 H (1.40-6.50) K/uL Lymph # (Auto) 0.24 L (1.20-3.40) K/uL [place] # (Auto) 0.41 (0.11-0.59) K/uL Eos # (Auto) 0.03 (0.00-0.50) K/uL Baso # (Auto) 0.06 (0.00-0.20) K/uL Immature Gran # (Auto) 0.11 (0.01-0.20) K/uL Absolute Nucleated RBC 0.03 (0.00-0.12) K/uL Nucleated RBC % (auto) 0.4 % Toxic Granulation 1+ Dohle Bodies 1+ PT 11.4 (9.0-12.0) Seconds INR 1.1 (0.9-1.1) VBG pH 7.43 H (7.36-7.41) VBG pCO2 48 (38-50) mmHg VBG pO2 42 mmHg VBG HCO3 32 mmol/L VBG O2 Saturation 74.9 % VBG Base Excess 6.4 mEq/L Sodium 144 (136-145) mmol/L Potassium 3.7 (3.5-5.1) mmol/L Chloride 103 (98-107) mmol/L Carbon Dioxide 31 (21-32) mmol/L Anion Gap 10 (3-11) BUN 23 (6-23) mg/dl Creatinine 1.50 H (0.6-1.2) mg/dl Est Cr Clr Drug Dosing 52.7 ml/min eGFR 40.39 BUN/Creatinine Ratio 15.3 (10-20) Glucose 113 H (70-99(Fasting)) mg/dl Lactate 1.1 (0.4-2.0) mmol/L Calcium 10.1 (8.6-10.3) mg/dl Magnesium 1.7 (1.7-2.4) mg/dl Total Bilirubin 0.6 (0.2-1.0) mg/dl AST 15 (13-39) U/L ALT 16 (7-52) U/L Alkaline Phosphatase 74 (34-104) U/L Troponin I High Sens 18.1 H (0-14) pg/ml B-Natriuretic Peptide 70 (0-100) pg/ml Total Protein 6.8 (6.0-8.3) gm/dl Albumin 3.3 L (3.4-5.0) gm/dl Globulin 3.5 (2.5-4.0) gm/dl Albumin/Globulin Ratio 0.9 (0.9-2) Procalcitonin 0.36 (0-0.5) ng/ml Adenovirus (PCR) Not Detected (NotDetected) B. pertussis DNA (PCR) Not Detected (NotDetected) B.parapertussis DNA PCR Not Detected (NotDetected) C. pneumoniae DNA (PCR) Not Detected (NotDetected) Coronavirus OC43 (PCR) Not Detected (NotDetected) Coronavirus HKU1 (PCR) Not Detected (NotDetected) Coronavirus 229E (PCR) Not Detected (NotDetected) SARS-CoV-2 (PCR) Not Detected (NotDetected) Coronavirus NL63 (PCR) Not Detected (NotDetected) Human Metapneumovir PCR DETECTED A (NotDetected) Influenza Type A (PCR) Not Detected (NotDetected) Influenza Type B (PCR) Not Detected (NotDetected) M. pneumoniae (PCR) Not Detected (NotDetected) Parainfluenza 1 (PCR) Not Detected (NotDetected) Parainfluenza 2 (PCR) Not Detected (NotDetected) Parainfluenza 3 (PCR) Not Detected (NotDetected) Parainfluenza 4 (PCR) Not Detected (NotDetected) RSV (PCR) Not Detected (NotDetected) Entero/Rhino (PCR) Not Detected (NotDetected) Administered Medications Discontinued Medications Cefepime HCl (Maxipime 2000mg) 2,000 mg in 20 mls @ 5 mls/min IV NOW STA; Protocol Stop: 06/09/24 14:31 Last Admin: 06/09/24 15:27 Dose: 5 mls/min Documented By: YOSSI Sodium Chloride (Nss) 1,000 mls @ 999 mls/hr IV .Q1H1M ONE Stop: 06/09/24 16:14 Last Admin: 06/09/24 15:27 Dose: 999 mls/hr Documented By: YOSSI Ioversol (Optiray 320 125ml) 116 ml IV ONCE ONE Stop: 06/09/24 16:09 Last Admin: 06/09/24 16:08 Dose: 116 ml Documented By: EDK Imaging Data Radiologist's Impression: Chest X-Ray 06/09/24 13:07 XR chest 1V portable CLINICAL HISTORY: Dyspnea COMPARISON STUDY: 04/20/2024 FINDINGS: Stable chest. Heart size and pulmonary vasculature are normal. There is interval patchy opa[place] in the lung bases. No pleural effusion or pneumothorax. IMPRESSION: Bilateral lung base pneumonia. ACT 112: Negative or not required by law. Electronically signed by: Cristobal Paris M.D. 06/09/2024 1:19 PM Chest CTA 06/09/24 15:15 CT pulmonary angiogram with IV contrast History: Chest pain COMPARISON: None TECHNIQUE: CT angiography of the chest was performed without IV contrast followed by IV contrast, including 3D post processing CTA image reconstruction. Dose reduction techniques were achieved by using automatic exposure control and/or adjustment of mA and/or kV according to patient size and/or use of iterative reconstruction technique. FINDINGS: Diagnostic quality: Adequate There is no evidence for pulmonary embolism. Left upper extremity approach port catheter tip in the mid right atrium. Dilated ascending thoracic aorta measuring 4.1 cm. No aortic dissection. The heart is not enlarged. There is no pericardial effusion. There are no abnormally enlarged hilar or mediastinal lymph nodes. The central tracheobronchial tree is clear. Diffuse tree-in-bud type nodules and tiny centrilobular nodules throughout the lungs, have a peripheral predominance and a lower lung predominance. Scattered areas of distal endobronchial mucous plugging seen throughout the lower lobes and the right middle lobe. There are small areas of coalescence at the periphery of the lung bases, suggesting developing pneumonia. There is no pleural effusion. Limited visualized upper abdomen. No destructive osseous changes are seen. IMPRESSION: No evidence for pulmonary embolism. Diffuse infectious bronchiolitis with areas of developing pneumonia at the periphery of the lung bases. Electronically signed by Alonzo Bettencourt 06-09-2024 4:23 PM Discharge Plan Visit Data Chief Complaint: Shortness of Breath/Dyspnea Stated Complaint: SOB, CHEST TIGHTNESS ED Provider: Patricia Wilder Discharge Problem: Acute hypoxemic respiratory failure, Human metapneumovirus (hMPV) pneumonia, Bilateral pneumonia Forms Stand Alone Forms: My [facility] Prescriptions Prescriptions: No Action famotidine [Pepcid] 20 mg tablet 20 mg PO HS PRN (Reason: Other) prednisone 10 mg tablet See Rx Instructions PO DAILY Qty: 147 0RF Rx Instructions: Take 60 mg daily for 1 week, 50 mg daily for 1 week, 40 mg daily for 1 week, 30 mg daily for 1 week, 20 mg daily for 1 week and 10 mg daily for 1 week PO daily; cetirizine 10 mg Tablet 10 mg PO QAM PRN (Reason: Allergy Symptoms) aspirin 81 mg Tablet,Chewable 81 mg PO QAM furosemide 20 mg Tablet 20 mg PO QAM losartan 25 mg Tablet 25 mg PO QAM metoprolol tartrate 25 mg Tablet 12.5 mg PO BID ondansetron HCl 8 mg tablet 8 mg PO DIRECTED PRN (Reason: n/v) prochlorperazine maleate 10 mg tablet 10 mg PO DIRECTED PRN (Reason: n/v) allopurinol 300 mg tablet 300 mg PO PM Venclexta Starting Pack 10 mg-50 mg- 100 mg tablets,dose pack 1 ea PO UD Rx Instructions: hasnt started yet pantoprazole 40 mg Tablet,Delayed Release (Dr/Ec) 40 mg PO BID Qty: 60 1RF Referrals Referrals: Emilee Gil PA-C [Primary Care Provider] -
[2024-06-09] MEDS: SODIUM CHLORIDE 0.9% 1,000 ML IV ONE (15:27)
[2024-06-09] MEDS: CEFEPIME 2000MG 2,000 MG/20 ML SYR IV STA (15:27)
[2024-06-09] MEDS: OPTIRAY 320 125ml IV ONE (16:08)
--- NOTE | 2024-06-09 16:23 | CT Scan Report ---
CT pulmonary angiogram with IV contrast History: Chest pain COMPARISON: None TECHNIQUE: CT angiography of the chest was performed without IV contrast followed by IV contrast, including 3D post processing CTA image reconstruction. Dose reduction techniques were achieved by using automatic exposure control and/or adjustment of mA and/or kV according to patient size and/or use of iterative reconstruction technique. FINDINGS: Diagnostic quality: Adequate There is no evidence for pulmonary embolism. Left upper extremity approach port catheter tip in the mid right atrium. Dilated ascending thoracic aorta measuring 4.1 cm. No aortic dissection. The heart is not enlarged. There is no pericardial effusion. There are no abnormally enlarged hilar or mediastinal lymph nodes. The central tracheobronchial tree is clear. Diffuse tree-in-bud type nodules and tiny centrilobular nodules throughout the lungs, have a peripheral predominance and a lower lung predominance. Scattered areas of distal endobronchial mucous plugging seen throughout the lower lobes and the right middle lobe. There are small areas of coalescence at the periphery of the lung bases, suggesting developing pneumonia. There is no pleural effusion. Limited visualized upper abdomen. No destructive osseous changes are seen. IMPRESSION: No evidence for pulmonary embolism. Diffuse infectious bronchiolitis with areas of developing pneumonia at the periphery of the lung bases. Electronically signed by Alonzo Bettencourt 06-09-2024 4:23 PM
[2024-06-09 16:40] LABS: Appearance Urine Clear (Clear); Bacteria Urine Automated 1+ (None Seen); Bilirubin Urine Negative (Negative); Blood Urine Negative (Negative); Cast Urine Automated 0-2 /lpf (0-2); Color Urine Yellow; Glucose Urine UA Negative (Negative); Ketones Urine Negative (Negative); Leukocyte Esterase Urine Trace (Negative); Nitrite Urine Negative (Negative); Protein Urine Negative (Negative); RBC Urine Automated 0-2 /hpf (0-2); Specific Gravity Urine 1.011 (1.000-1.030); Urobilinogen Urine Negative (Negative); WBC Urine Automated 0-5 /hpf (0-5)
[2024-06-09] MEDS ORDERED: VANCOMYCIN HCL 1,000 MG/270 ML BAG IV SCH (16:45)
[2024-06-09] MEDS ORDERED: VANCOMYCIN CONSULT ACTIVE PRN (16:45)
[2024-06-09] MEDS ORDERED: ONDANSETRON INJ 2 MG/ML 2 ML VIAL IV PRN (16:49)
--- NOTE | 2024-06-09 17:05 | History & Physical Report ---
Date of Service June 09, 2024 Assessment & Plan (1) Bilateral pneumonia: Plan: Assessment: 1. Acute hypoxemic respiratory failure. Multifactorial. Please see #2 and #3. Pulmonary toilet including nebulizers and steroids and antibiotics. 2. Human metapneumovirus. Acute. Supportive care. Pulmonary toilet. 3. Bilateral pneumonia. Patient is chronically immunocompromised under treatment for CLL. IV vancomycin. IV cefepime. Sputum cultures. Nebulizers. Steroids. 4. Clinical sepsis. The patient's been volume resuscitated. She is tachycardic and hypotensive. She is chronically steroid-dependent at home. We will do hydrocortisone 100 mg IV every 6 hours. This needs to be titrated off back to oral steroids tomorrow on day shift or when appropriate pending the patient's clinical course. 5. Stress dose steroids needed as discussed above. Anticipate refractory hyperglycemia. Basal bolus insulin therapy ordered pharmacy consulted. 6. Diabetes mellitus. Basal bolus insulin therapy. With IV steroids anticipate hyperglycemia. Pharmacy consulted. 7. CLL. Immunotherapy was in March. She is chronically immunosuppressed. Hence broad-spectrum antibiotic therapy as discussed above. 8. Morbid obesity. 9. Obstructive sleep apnea. According the patient she wears CPAP at home 17 cm of water. This has been ordered per protocol 10. Mildly elevated troponin. Will cycle troponins. EKG is reassuring. No chest pain. Probably secondary to demand ischemia from hypoxemia. 11. 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 Monitor carefully. 12. GERD. Continue PPI. 13. Hypertension. Will hold antihypertensives at this time given the hypotension. Plan: As discussed above. Please refer to orders for further planning. History of Present Illness Chief Complaint: Shortness of breath, cough. Primary Care Provider: Emilee Gil This is a 58-year-old female who has a history of CLL. She had immunotherapy in March. On chronic steroid therapy 30 mg of prednisone daily. Presented to the ER with shortness of breath and cough ongoing for a few days. Is found to be high hypoxemic. Requiring 8 L of oxygen nasal cannula in the ER to keep her O2 sats above 90. She was tachycardic and mildly hypotensive. She received IV fluids. CTA was negative for PE but positive for bilateral lower lobe infiltrates. Also her respiratory viral panel tested positive for human metapneumovirus. Course in the ER she received IV cefepime. She also received sepsis fluid b olus. Admit the patient for further evaluation and treatment for clinical sepsis bilateral pneumonia in an immunocompromised patient with acute Luna human pneumo virus. Did the fact he is on chronic steroids reported hydrocortisone stat at 100 mg IV we have ordered this every 6 hours. This will need to be titrated back to an oral dose of prednisone once she stabilizes. We will order cefepime and vancomycin given her immunocompromise state. Continue stress dose steroids. Nebulizer therapy. Allergies Allergy/AdvReac Type Severity Reaction Status Date / Time meperidine AdvReac Intermediate LOSS OF Verified 06/09/24 16:26 MEMORY procaine AdvReac Mild INEFFECTIVE Verified 06/09/24 16:26 Home Medications Medication Instructions Recorded Confirmed Type aspirin 81 mg chewable tablet 81 mg PO QAM 11/24/18 06/09/24 History cetirizine 10 mg tablet 10 mg PO QAM PRN Allergy Symptoms 11/24/18 06/09/24 History furosemide 20 mg tablet 20 mg PO QAM 11/24/18 06/09/24 History losartan 25 mg tablet 25 mg PO QAM 05/29/21 06/09/24 History metoprolol tartrate 25 mg tablet 12.5 mg PO BID 05/29/21 06/09/24 History famotidine 20 mg tablet (Pepcid) 20 mg PO HS PRN Other 04/27/22 06/09/24 History ondansetron HCl 8 mg tablet 8 mg PO DIRECTED PRN n/v 04/20/24 06/09/24 History prochlorperazine maleate 10 mg 10 mg PO DIRECTED PRN n/v 04/20/24 06/09/24 History tablet pantoprazole 40 mg tablet,delayed 40 mg PO BID #60 tabs 04/26/24 06/09/24 Rx release prednisone 10 mg tablet See Rx Instructions PO DAILY #147 05/12/24 06/09/24 Rx tabs Past Med/Surg History Problem List (Updated 06/09/24 @ 15:17 by Patricia Wilder MD) Bilateral pneumonia (Acute) Human metapneumovirus (hMPV) pneumonia (Acute) Acute hypoxemic respiratory failure (Acute) Personal history of immune checkpoint inhibitor therapy Noninfective gastroenteritis and colitis Hypovolemic shock ARF (acute renal failure) Sepsis Hypomagnesemia (Acute) Diarrhea (Acute) JEREL (acute kidney injury) (Acute) Colon cancer screening Retroperitoneal lymphadenopathy Medical History (Updated 06/09/24 @ 15:17 by Patricia Wilder MD) DMII (diabetes mellitus, type 2) Diabetes Morbid obesity BMI 51.5 CLL (chronic lymphocytic leukemia) relapsed Hypertension Sleep apnea CPAP Insulin resistance patient states no meds any longer and "not diabetic" History of bronchitis Hypertension Sleep apnea CPAP CLL (chronic lymphocytic leukemia) History of COVID-19 hx 03/2021--mild symptoms, no symptoms now Osteoarthritis Fatty liver GERD (gastroesophageal reflux disease) IBS (irritable bowel syndrome) Hearing deficit Migraine SOB (shortness of breath) on exertion Aortic aneurysm MONITORING - following W/ DR. Carias- "measuring up to 4.2 cm in diameter" per chest CT 04/2021 [place] Cardiac murmur No murmur on exam per 05/28/21 general surgery note Surgical History Port-A-Cath in place (06/02/21) Insertion Access Port with Fluoroscopy(Left) - Cristobal Mina DO, FACS 06/02/2021 pt states it is a power port History of bone marrow biopsy History of lymph node excision CERVICAL History of surgery REMOVAL OF BENIGN GROWTH FROM RLE History of tonsillectomy History of tubal ligation Family History Mother Heart disease Family history of reaction to anesthesia PONV Cancer Hypertension Mother Family history of diabetes mellitus Grandmother Family history of diabetes mellitus Heart disease Cancer Hypertension Social History Smoking Status: Never smoker Tobacco Type: Cigarettes Cigarettes Per Day: quit in college; Second Hand Exposure: No; Do You Dip or Chew Tobacco: No (smoked lightly in college); Hx Alcohol Use: Yes Alcohol type: wine Alcohol Intake Frequency: Monthly or Less Alcohol Intake Frequency Comment: holidays Hx Substance Use: No Preferred Language: German Communication Ability: Effective Wood Stainer Required: No Beliefs That Will Affect Care: None marital status: Current Living Situation: Spouse current occupational status: employed 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 Physical Exam Physical Exam: In General: In general ill-appearing 58-year-old female who is alert and oriented x 3 at the time of my exam. She is accompanied by her at the time of my examination whom she grants permission to be in the room during my interview and exam. HEENT: Normocephalic atraumatic pupils are equal round and reactive to light bilaterally. No scleral icterus no conjunctival injection external auditory canals are patent septum is in the midline nose is without discharge oral mucosa is pink and moist without lesion. NECK: Supple no rigidity no lymphadenopathy no thyromegaly no carotid bruits no JVD no masses. HEART: Regular rate and rhythm I do not appreciate any ectopy or rub. No murmur. LUNGS: Coarse bilaterally with bilateral rhonchi. With bilateral expiratory wheezes. ABDOMEN: Soft nontender, no rebound, no peritoneal signs, obese, remaining abdominal exam is equivocal given her body habitus. EXTREMITIES: Intact, no peripheral cyanosis, clubbing or edema. Strength is 5 out of 5 in extremities x4. NEUROLOGICAL: Cranial nerves II through XII are grossly intact with no focal deficit elicited upon examination. Results & Data Results & Data Vital Signs (Past 12 Hours) Vital Signs Temp Pulse Pulse Resp BP BP Pulse Ox 06/09/24 16:00 109 H 22 102/73 92 06/09/24 15:57 06/09/24 14:49 110 H 24 92/76 L 92 06/09/24 13:32 92 06/09/24 13:23 36.8 C 108 H 21 92/76 L 84 L 06/09/24 13:18 110 H O2 Del Method O2 Flow Rate 06/09/24 16:00 Oxymask 8 06/09/24 15:57 Oxymask 6 06/09/24 14:49 Oxymask 6 06/09/24 13:32 Oxymask 6 06/09/24 13:23 Room Air 06/09/24 13:18 Code Status & VTE Plan Code Status Full code. I personally discussed with patient at bedside. VTE Prophylaxis Plan VTE Prophylaxis will be ordered: Yes PG Care Time/CCT Total # of Minutes Spent Total Time Spent with Patient: Total time spent is greater than 50% in coordination of care (as documented) at patient's floor/unit and/or counseling patient: Coding Level of Care Code 83510 INT INP/OBS CARE MIN Diagnoses Bilateral pneumonia J18.9
[2024-06-09] MEDS ORDERED: DEXTROSE 50% 50 ML SYRINGE IV PRN (17:10)
[2024-06-09] MEDS ORDERED: GLUCOSE 10 TAB/TUBE PO PRN (17:10)
[2024-06-09] MEDS ORDERED: GLUCOSE 40% GEL 15 GM TUBE PO PRN (17:10)
[2024-06-09] MEDS ORDERED: CARBOHYDRATES FOR HYPOGLYCEMIA PO PRN (17:10)
[2024-06-09] MEDS ORDERED: PHARMACY GLYCEMIC MGMT CONSULT PRN (17:10)
[2024-06-09] MEDS ORDERED: GLUCAGON FOR INJ 1 MG VIAL SQ PRN (17:10)
[2024-06-09] MEDS: HYDROCORTISONE SOD SUCCINATE 100 MG/2 ML VIAL IV STA (17:17)
[2024-06-09] MEDS: SODIUM CHLORIDE 0.9% 500 ML IV ONE (17:22)
[2024-06-09] MEDS: VANCOMYCIN HCL 2,500 MG in SODIUM CHLORIDE 0.9% 500 ML IV ONE (17:39)
--- NOTE | 2024-06-09 17:53 | Electrocardiogram Report ---
Test Reason : Blood Pressure : */* mmHG Vent. Rate : 109 BPM Atrial Rate : 109 BPM P-R Int : 174 ms QRS Dur : 116 ms QT Int : 314 ms P-R-T Axes : 51 -16 46 degrees QTcB Int : 422 ms Sinus tachycardia Possible Left atrial enlargement Low voltage QRS Borderline Non-specific intra-ventricular conduction block Borderline ECG When compared with ECG of 20-Apr-2024 16:19, Nonspecific T wave abnormality, improved in Inferior leads Confirmed by Klever Cai ([id number]) on 06/09/2024 5:53:03 PM Referred By: REFERRED SELF Confirmed By: Klever Cai
[2024-06-09] MEDS: PANTOprazole 40 MG TAB PO SCH (18:54)
--- NOTE | 2024-06-09 19:39 | Pharmacy Report ---
Pharmacy PK ABX Note - Date of Service June 09, 2024 - Assessment and Plan Assessment 58 year old F receiving vancomycin/cefepime for treatment of bilateral pneumonia secondary to human metapneumovirus. Pertinent microbiologic data includes: MRSA Nasal Swab pending,urine and blood cultures pending. Day # 1 of antimicrobial therapy. Plan Vancomycin * Loading dose: 1500 mg IV x 1 * Maintenance dose: 1250 mg IV every 24 hours starting 06/10 @ 1500 * Regimen is predicted to achieve target AUC/BRIANA of 400-600 mg/L.hr * Random level ordered for: 06/10/23 with AM labs to help better direct dosing Pharmacy will continue to follow and will adjust dose/frequency as necessary. Thank you. Pharmacy has transitioned to AUC monitoring for vancomycin. AUC/BRIANA is the preferred PK/PD target and is associated with decreased risk of nephrotoxicity compared to traditional trough targets.
[2024-06-09] MEDS: ALBUT/IPRATROP 3MG/0.5MG NEB 3 ML VIAL NEB SCH (20:00)
[2024-06-09] MEDS ORDERED: LANTUS PER UNIT CHARGE SQ SCH (21:00)
[2024-06-09] MEDS: INSULIN ASPART PER UNIT CHARGE SC SCH (21:46)
[2024-06-09] MEDS: HEPARIN SOD 5,000 UNIT/0.5 ML VIAL SQ SCH (21:46)
[2024-06-10] MEDS ORDERED: HYDROCORTISONE SOD SUCCINATE 100 MG/2 ML VIAL IV SCH
[2024-06-10] MEDS: CEFEPIME 2000MG 2,000 MG/20 ML SYR IV SCH
[2024-06-10] MEDS: INSULIN ASPART PER UNIT CHARGE SC SCH (00:33)
[2024-06-10] MEDS: HYDROCORTISONE SOD 100 MG in SYRINGE 0 ML IV SCH (01:51)
[2024-06-10 08:09] LABS: Hematocrit (blood only) 34.3 % (37.0-47.0); Hemoglobin 10.6 g/dl (12.0-16.0); Mean Corpuscular Hemoglobin 28.7 pg (25.0-34.0); Mean Corpuscular Hgb Conc 30.9 g/dL (32.0-36.0); Mean Platelet Volume 9.4 fL (9.4-12.4); Platelet Count 261 K/uL (130-400); RDW Coefficient of Variation 16.2 % (11.5-14.5); RDW Standard Deviation 55.4 fL (36.4-46.3); Red Blood Count 3.69 M/uL (4.20-5.40); White Blood Count 10.09 K/ul (4.8-10.8)
[2024-06-10 08:28] LABS: Basophils # (auto) 0.03 K/uL (0.00-0.20); Basophils % (auto) 0.3 %; Immature Granulocytes # (auto) 0.23 K/uL (0.01-0.20); Immature Granulocytes % (auto) 2.3 %; Lymphocytes # (auto) 0.25 K/uL (1.20-3.40); Lymphocytes % (auto) 2.5 %; Monocytes # (auto) 0.39 K/uL (0.11-0.59); Monocytes % (auto) 3.9 %; Neutrophils # (auto) 9.19 K/uL (1.40-6.50); Toxic Granulation 1+
[2024-06-10 08:29] LABS: Albumin Level 3.1 gm/dl (3.4-5.0); BUN Creatinine Ratio 15.8 (10-20); Bilirubin,Total 0.4 mg/dl (0.2-1.0); Calcium 10.1 mg/dl (8.6-10.3); Chol HDL Ratio 5.2 (0-5); Creatinine Clr Calc Pharmacy 56.5 ml/min; Globulin 3.1 gm/dl (2.5-4.0); Potassium 4.3 mmol/L (3.5-5.1); Total Protein 6.2 gm/dl (6.0-8.3)
[2024-06-10 08:44] LABS: Thyroid Stimulating Hormone 0.24 uIu/ml (0.300-4.500)
[2024-06-10] MEDS: ACETAMINOPHEN 325 MG TAB PO PRN (08:46)
[2024-06-10 08:54] LABS: Estimated Average Glucose 140 mg/dl; Hemoglobin A1C 6.5 % (4.5-5.6)
[2024-06-10 09:18] LABS: T4 Free Thyroxine 1.12 ng/dl (0.61-1.60)
--- NOTE | 2024-06-10 11:50 | Pharmacy Report ---
Pharmacy Glycemic Short Note 2 - Date of Service June 10, 2024 - Glycemic Short BSG Results (Last 24 hours): 06/09/24 06/09/24 06/10/24 13:32 20:58 00:02 Glucose 113 H POC Glucose 197 H 180 H 06/10/24 06/10/24 06/10/24 04:59 07:20 07:52 Glucose 152 H POC Glucose 165 H 168 H 06/10/24 11:16 Glucose POC Glucose 143 H OUTPATIENT ANTIDIABETIC REGIMEN: * metformin 500mg po bid HbA1c 6.1% on 04/27/24 ASSESSMENT: * 58 year old female admitted 06/09/24 for acute hypoxemic respiratory failyre, hMPV, and bilateral pneumonia. Pharmacy was consulted for glycemic management while she is admitted. * Patient appears to be well controlled on only an oral antidiabetic agent at home. BSG on admit was 113mg/dL. Patient receiving stress steroids (chronically steroid-dependent at home) with hydrocortisone 100mg iv q 6 hours. * No basal insulin started last evening. Bolus insulin with very loose parameters started last evening. * Fasting BSG was 168mg/dL this morning so the bolus insulin parameters were tightened starting with breakfast today. Lunch BSG improved to 143mg/dl so will defer starting basal insulin at this time. PLAN FOR INPATIENT GLYCEMIC CONTROL: * Hold outpatient oral diabetes medications * Basal insulin * hold * Bolus insulin * NovoLog per scale ACHS or Q6hrs while NPO * Goal Range: Low 110 mg/dL - High 140 mg/dL * Correction Factor: 40 mg/dL/unit * Nutritional / Prandial insulin per carb ratio of 1 unit per 15 grams CHO consumed
--- NOTE | 2024-06-10 12:51 | Hospitalist Progress Note ---
Date of Service June 10, 2024 Assessment & Plan (1) Human metapneumovirus (hMPV) pneumonia: Plan: PNa 2/2 to Human metapneumovirus. Continue symptomatic mgt albuterol, oxygen supplemenation pulmonary toilet stop vancomycin continue cefepime in case of bacterial superinfection due to immunocompromise (2) Acute hypoxemic respiratory failure: Plan: secondary to 1 (3) CLL (chronic lymphocytic leukemia): (4) Bilateral pneumonia: Plan other chronic conditions -Diabetes mellitus. Basal bolus insulin therapy. With IV steroids anticipate hyperglycemia. Pharmacy consulted. -CLL. Immunotherapy was in March. She is chronically immunosuppressed. Hence broad-spectrum antibiotic therapy as discussed above. -Morbid obesity. -Obstructive sleep apnea. According the patient she wears CPAP at home 17 cm of water. This has been ordered per protocol -Mildly elevated troponin. Will cycle troponins. EKG is reassuring. No chest pain. Probably secondary to demand ischemia from hypoxemia. 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 Monitor carefully. -GERD. Continue PPI. -Hypertension. Will hold antihypertensives at this time given the hypotension. Admission and Anticipated Discharge Date Admission Date: June 09, 2024 Subjective patient seen and examined, says shortness of breath has improved Review of Systems Review of Systems: All systems reviewed are negative, apart from the ones contained in the history. Physical Exam Physical Exam: The patient is awake, alert and oriented 3, well developed and well nourished, normocephalic and atraumatic, lying in bed and in no acute distress. HEENT--PERRL, EOMI, mucous membranes and oropharynx mildly dry Neck--supple. No JVD. No bruits. Thyroid normal, trachea midline, no adenopathy. Heart--normal S1 and S2. No murmurs, rubs or gallops. Lungs--reduced air entry Abdomen--normal bowel sounds and soft. Extremities--no cyanosis or clubbing. No edema. Dermatologic--normal skin turgor, normal color, no abnormal lymph nodes, no rash. Neurologic--cranial nerves II through XII grossly intact. Rheumatologic--normal range of motion. Psychiatric--normal affect. Results & Data Results & Data Vital Signs (Past 12 Hours) Vital Signs Temp Pulse Pulse Resp BP Pulse Ox O2 Del Method 06/10/24 11:13 97.7 F 97 H 20 115/74 92 Oxymask 06/10/24 09:53 74 06/10/24 09:53 Nasal Cannula 06/10/24 07:42 91 H 20 97 Oxymask 06/10/24 07:17 97.7 F 91 H 21 123/79 97 Oxymask 06/10/24 03:00 97.9 F 20 100/70 97 Oxymask 06/10/24 01:40 92 H O2 Flow Rate 06/10/24 11:13 4 06/10/24 09:53 06/10/24 09:53 5 06/10/24 07:42 8 06/10/24 07:17 8 06/10/24 03:00 8 06/10/24 01:40 PG Care Time/CCT Total # of Minutes Spent Total Time Spent with Patient: Total time spent is greater than 50% in coordination of care (as documented) at patient's floor/unit and/or counseling patient: Coding Level of Care Code 22660 SUB INP/OBS CARE 2/35MIN Diagnoses Human metapneumovirus (hMPV) pneumonia J12.3 Acute hypoxemic respiratory failure J96.01 CLL (chronic lymphocytic leukemia) C91.90 Bilateral pneumonia J18.9 Time Spent (min) 35
[2024-06-10] MEDS ORDERED: VANCOMYCIN HCL 1,250 MG in SODIUM CHLORIDE 0.9% 250 ML IV SCH (15:00)
[2024-06-11] MEDS: ALBUTEROL 0.083% NEBU SOLN 3 ML VIAL NEB PRN (05:43)
[2024-06-11] MEDS ORDERED: METOPROLOL TARTRATE 1 MG/ML VIAL IV PRN (06:40)
[2024-06-11] MEDS: METOPROLOL TARTRATE 1 MG/ML VIAL IV ONE (06:48)
[2024-06-11 07:47] LABS: Hematocrit (blood only) 33.9 % (37.0-47.0); Hemoglobin 10.7 g/dl (12.0-16.0); Mean Corpuscular Hemoglobin 29.1 pg (25.0-34.0); Mean Corpuscular Hgb Conc 31.6 g/dL (32.0-36.0); Mean Corpuscular Volume 92.1 fL (80.0-100.0); Mean Platelet Volume 9.6 fL (9.4-12.4); Nucleated RBC # (auto) 0.04 K/uL (0.00-0.12); Nucleated RBC % (auto) 0.4 %; Platelet Count 279 K/uL (130-400); RDW Coefficient of Variation 16.2 % (11.5-14.5); RDW Standard Deviation 54.5 fL (36.4-46.3); Red Blood Count 3.68 M/uL (4.20-5.40); White Blood Count 11.38 K/ul (4.8-10.8)
[2024-06-11] MEDS: METOPROLOL TARTRATE 1 MG/ML VIAL IV PRN (07:50)
[2024-06-11] MEDS ORDERED: STAT IV Infusion **Titration per Protocol STA (07:59)
[2024-06-11 08:07] LABS: Albumin Globulin Ratio 1.1 (0.9-2); Albumin Level 3.2 gm/dl (3.4-5.0); BUN Creatinine Ratio 17.4 (10-20); Bilirubin,Total 0.4 mg/dl (0.2-1.0); Calcium 10.7 mg/dl (8.6-10.3); Creatinine Clr Calc Pharmacy 54.1 ml/min; Creatinine Clr Calc Pharmacy 54.5 ml/min; Potassium 4.1 mmol/L (3.5-5.1); Total Protein 6.2 gm/dl (6.0-8.3)
[2024-06-11 08:33] LABS: Troponin I High Sensitivity 12.3 pg/ml (0-14)
[2024-06-11] MEDS: dilTIAZem HCL 125 MG in DEXTROSE 5% 100 ML IV SCH (08:46)
[2024-06-11] MEDS: HEPARIN SODIUM/DEXTROSE 25,000 UNITS/500 ML BAG IV SCH (08:46)
[2024-06-11] MEDS: Heparin IV Adult Wt-Based Low-Dose *NO* INITIAL Bolus Protocol IV STA (09:47)
[2024-06-11 09:48] LABS: Hematocrit (blood only) 34.2 % (37.0-47.0); Hemoglobin 10.6 g/dl (12.0-16.0); Mean Corpuscular Hemoglobin 28.4 pg (25.0-34.0); Mean Corpuscular Volume 91.7 fL (80.0-100.0); Mean Platelet Volume 9.4 fL (9.4-12.4); Nucleated RBC # (auto) 0.03 K/uL (0.00-0.12); Nucleated RBC % (auto) 0.3 %; Platelet Count 284 K/uL (130-400); RDW Coefficient of Variation 16.2 % (11.5-14.5); RDW Standard Deviation 54.9 fL (36.4-46.3); Red Blood Count 3.73 M/uL (4.20-5.40); White Blood Count 11.51 K/ul (4.8-10.8)
[2024-06-11 10:07] LABS: Basophils # (auto) 0.03 K/uL (0.00-0.20); Basophils % (auto) 0.3 %; Immature Granulocytes # (auto) 0.28 K/uL (0.01-0.20); Immature Granulocytes % (auto) 2.4 %; Lymphocytes # (auto) 0.15 K/uL (1.20-3.40); Lymphocytes % (auto) 1.3 %; Monocytes # (auto) 0.42 K/uL (0.11-0.59); Monocytes % (auto) 3.6 %; Neutrophils # (auto) 10.63 K/uL (1.40-6.50); Neutrophils % (auto) 92.4 %; Polychromasia 1+; Toxic Granulation 3+
[2024-06-11 10:24] LABS: Partial Thromboplastin Ratio 1.1; Partial Thromboplastin Time 29 Seconds (21-31); Prothrombin Time 11.3 Seconds (9.0-12.0)
[2024-06-11] MEDS: NYSTATIN SUSP 500,000 U/5 ML UDC PO SCH (11:12)
[2024-06-11] MEDS: guaiFENesin 600 MG TABCR PO SCH (11:12)
--- NOTE | 2024-06-11 11:44 | Cardiology Consultation ---
Date of Consultation June 11, 2024 Assessment & Plan (1) Afib: (2) Ascending aortic aneurysm: (3) Hypertension: Plan ASSESSMENT/PLAN: 1. Atrial fibrillation: Seems to be asymptomatic. Heart rate has improved with diltiazem drip. Normal LV systolic function on echo. Cannot exclude that she has paroxysmal atrial fibrillation, however this was likely exacerbated by her acute hypoxemic respiratory failure and pneumonia. We discussed the diagnosis. Can continue diltiazem drip for now. If she does not spontaneously convert by tomorrow, will consider amiodarone in an attempt to convert to sinus rhythm. Continue anticoagulation for stroke risk reduction. Monitor CBC. 2. Ascending thoracic aortic aneurysm: Noted on echo today and is followed in the outpatient setting by Dr. Carias, her primary wheel loader operator. Continue ARB and beta-esme on discharge. Blood pressure control. Annual surveillance. Avoid strenuous lifting for which the Valsalva maneuver is required. 3. Hypertension: Blood pressure mildly hypotensive this morning briefly, but otherwise normotensive. Home antihypertensive agents are currently held for concerns of sepsis by the hospitalist service. 4. CLL: As per other providers. 5. Bilateral pneumonia/human metapneumovirus/acute hypoxemic respiratory failure: As per primary hospitalist service. 6. Disposition: Cardiology will continue to follow. Patient care communicated with primary hospitalist, Dr. Leggett. Once discharged, she should follow-up with her primary wheel loader operator, Dr. Carias. Thank you for allowing me to participate in the care of your patient. Please call for any other questions or concerns. Sincerely, Isma Fish M.D. History of Present Illness Reason for Consultation: "New onset A-fib wrvr" Requesting Physician: Niecy Leggett MD Attending Physician: Niecy Leggett MD History of Present Illness Ms. Suazo is a very pleasant 58-year-old female with a history significant for thoracic ascending aortic aneurysm, CLL, type 2 diabetes, hypertension, fatty l iver, and sleep apnea on CPAP nightly. Her primary wheel loader operator is Dr. Carias in [facility]. She was admitted on 06/09/2024 with acute hypoxemic respiratory failure felt to be due to bilateral pneumonia and human metapneumovirus. Initially, rhythm was sinus tachycardia on ECG on 06/09/2024 but she developed atrial fibrillation with rapid ventricular response on 06/11/2024 at 6:21 AM with heart rate up into the 170s. Hospitalist service initiated a diltiazem drip with improved heart rate. She has chronic palpitations with exertion. She denies any significant palpitations while hospitalized in bed. She has had a productive cough of clear sputum. She denies shortness of breath at the time of our visit earlier today, chest pain, fevers, shaking chills, edema, melena, hematochezia, hematuria. She acknowledges that on presentation, she does not have much recollection of what happened. She feels as though she has improved since presentation. She sees her primary wheel loader operator annually for evaluation of her thoracic aortic aneurysm. Review of systems: As above. Family history: Mother had a cardiac disorder but she does not know the details. Social history: She denies tobacco, alcohol, or drug abuse. She lives at home with her in [place], [place]. 6 children. 11 grandchildren. She w as unaccompanied. Allergies Allergy/AdvReac Type Severity Reaction Status Date / Time meperidine AdvReac Intermediate LOSS OF Verified 06/09/24 16:26 MEMORY procaine AdvReac Mild INEFFECTIVE Verified 06/09/24 16:26 Home Medications Medication Instructions Recorded Confirmed Type aspirin 81 mg chewable tablet 81 mg PO QAM 11/24/18 06/09/24 History cetirizine 10 mg tablet 10 mg PO QAM PRN Allergy Symptoms 11/24/18 06/09/24 History furosemide 20 mg tablet 20 mg PO QAM 11/24/18 06/09/24 History losartan 25 mg tablet 25 mg PO QAM 05/29/21 06/09/24 History metoprolol tartrate 25 mg tablet 12.5 mg PO BID 05/29/21 06/09/24 History famotidine 20 mg tablet (Pepcid) 20 mg PO HS PRN Other 04/27/22 06/09/24 History ondansetron HCl 8 mg tablet 8 mg PO DIRECTED PRN n/v 04/20/24 06/09/24 History prochlorperazine maleate 10 mg 10 mg PO DIRECTED PRN n/v 04/20/24 06/09/24 History tablet pantoprazole 40 mg tablet,delayed 40 mg PO BID #60 tabs 04/26/24 06/09/24 Rx release prednisone 10 mg tablet See Rx Instructions PO DAILY #147 05/12/24 06/09/24 Rx tabs Problem List (Updated 06/11/24 @ 15:51 by Michael Fish MD) Ascending aortic aneurysm Afib Bilateral pneumonia (Acute) Human metapneumovirus (hMPV) pneumonia (Acute) Acute hypoxemic respiratory failure (Acute) Personal history of immune checkpoint inhibitor therapy Noninfective gastroenteritis and colitis Hypovolemic shock ARF (acute renal failure) Sepsis Hypomagnesemia (Acute) Diarrhea (Acute) JEREL (acute kidney injury) (Acute) Colon cancer screening Retroperitoneal lymphadenopathy Patient History Medical History DMII (diabetes mellitus, type 2) Diabetes Morbid obesity BMI 51.5 CLL (chronic lymphocytic leukemia) relapsed Hypertension Sleep apnea CPAP History of bronchitis Hypertension Sleep apnea CPAP CLL (chronic lymphocytic leukemia) History of COVID-19 hx 03/2021--mild symptoms, no symptoms now Osteoarthritis Fatty liver GERD (gastroesophageal reflux disease) IBS (irritable bowel syndrome) Hearing deficit Migraine SOB (shortness of breath) on exertion Aortic aneurysm MONITORING - following W/ DR. Carias- "measuring up to 4.2 cm in diameter" per chest CT 04/2021 [place] Cardiac murmur No murmur on exam per 05/28/21 general surgery note Surgical History Port-A-Cath in place (06/02/21) Insertion Access Port with Fluoroscopy(Left) - Cristobal Mina DO, FACS 06/02/2021 pt states it is a power port History of bone marrow biopsy History of lymph node excision CERVICAL History of surgery REMOVAL OF BENIGN GROWTH FROM RLE History of tonsillectomy History of tubal ligation Family History Mother Heart disease Family history of reaction to anesthesia PONV Cancer Hypertension Mother Family history of diabetes mellitus Grandmother Family history of diabetes mellitus Heart disease Cancer Hypertension Social History Smoking Status: Never smoker Tobacco Type: Cigarettes Cigarettes Per Day: quit in college; Second Hand Exposure: No; Do You Dip or Chew Tobacco: No; Hx Alcohol Use: Yes Alcohol type: wine Alcohol Intake Frequency: Monthly or Less Alcohol Intake Frequency Comment: holidays Hx Substance Use: No Preferred Language: Serbian Communication Ability: Effective Business Services Tech Required: No Beliefs That Will Affect Care: None marital status: Current Living Situation: Spouse current occupational status: employed 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 Alert. HEENT: Anicteric sclera. Neck: Thick neck. No bruits. Normal carotid upstrokes bilaterally. Cardiac: Irregularly irregular and tachycardic. Normal S1-S2. No murmurs, rubs, or gallops. Pulmonary: Coarse breath sounds at the bases. Abdomen: Soft, nontender, nondistended, with normoactive bowel sounds. No bruits noted. Extremities: 2+ radial pulses bilaterally. 2+ posterior tibialis pulses bilaterally. No edema or cyanosis. Results & Data Vital Signs (Past 12 Hours) Vital Signs Temp Pulse Pulse Resp BP BP Pulse Ox 06/11/24 11:18 118/82 94 06/11/24 10:57 36.7 C 103 H 19 127/82 93 06/11/24 09:54 36.6 C 130 H 18 100/72 93 06/11/24 08:21 813 H 18 89/66 L 90 06/11/24 07:50 165 H 108/80 06/11/24 07:44 165 H 18 108/80 92 06/11/24 07:30 102 H 20 90 06/11/24 07:03 105 H 126/87 06/11/24 07:03 36.2 C L 105 H 25 H 126/87 90 06/11/24 06:48 120 H 112/79 06/11/24 05:44 87 20 88 L 06/11/24 03:01 36.7 C 72 18 137/84 95 O2 Del Method O2 Flow Rate 06/11/24 11:18 Nasal Cannula 2 06/11/24 10:57 Nasal Cannula 3 06/11/24 09:54 Nasal Cannula 2 06/11/24 08:21 Nasal Cannula 2 06/11/24 07:50 06/11/24 07:44 Nasal Cannula 1 06/11/24 07:30 Nasal Cannula 2 06/11/24 07:03 06/11/24 07:03 Nasal Cannula 1 06/11/24 06:48 06/11/24 05:44 Room Air 06/11/24 03:01 Nasal Cannula Laboratory Results Laboratory Results - last 24 hr 06/10/24 06/10/24 06/11/24 16:13 20:23 07:02 WBC RBC Hgb Hct MCV MCH MCHC RDW Std Deviation RDW Coeff of Dimitri Plt Count MPV Immature Gran % (Auto) Neut % (Auto) Lymph % (Auto) Early % (Auto) Eos % (Auto) Baso % (Auto) Neut # (Auto) Lymph # (Auto) Early # (Auto) Eos # (Auto) Baso # (Auto) Immature Gran # (Auto) Absolute Nucleated RBC Nucleated RBC % (auto) Toxic Granulation Polychromasia PT INR APTT PTT Ratio Sodium Potassium Chloride Carbon Dioxide Anion Gap BUN Creatinine Est Cr Clr Drug Dosing eGFR BUN/Creatinine Ratio Glucose POC Glucose 128 H 146 H 145 H Calcium Magnesium Total Bilirubin AST ALT Alkaline Phosphatase Troponin I High Sens Total Protein Albumin Globulin Albumin/Globulin Ratio 06/11/24 06/11/24 06/11/24 07:15 07:15 07:15 WBC 11.38 H RBC 3.68 L Hgb 10.7 L Hct 33.9 L MCV 92.1 MCH 29.1 MCHC 31.6 L RDW Std Deviation 54.5 H RDW Coeff of Dimitri 16.2 H Plt Count 279 MPV 9.6 Immature Gran % (Auto) Neut % (Auto) Lymph % (Auto) Early % (Auto) Eos % (Auto) Baso % (Auto) Neut # (Auto) Lymph # (Auto) Early # (Auto) Eos # (Auto) Baso # (Auto) Immature Gran # (Auto) Absolute Nucleated RBC 0.04 Nucleated RBC % (auto) 0.4 Toxic Granulation Polychromasia PT INR APTT PTT Ratio Sodium 144 Potassium 4.1 Chloride 108 H Carbon Dioxide 29 Anion Gap 7 BUN 25 H Creatinine 1.45 H 1.44 H Est Cr Clr Drug Dosing 54.1 54.5 eGFR 42.07 BUN/Creatinine Ratio Glucose POC Glucose Calcium Magnesium Total Bilirubin AST ALT Alkaline Phosphatase Troponin I High Sens Total Protein Albumin Globulin Albumin/Globulin Ratio 06/11/24 06/11/24 06/11/24 07:15 09:29 11:00 WBC 11.51 H RBC 3.73 L Hgb 10.6 L Hct 34.2 L MCV 91.7 MCH 28.4 MCHC 31.0 L RDW Std Deviation 54.9 H RDW Coeff of Dimitri 16.2 H Plt Count 284 MPV 9.4 Immature Gran % (Auto) 2.4 Neut % (Auto) 92.4 Lymph % (Auto) 1.3 Early % (Auto) 3.6 Eos % (Auto) 0.0 Baso % (Auto) 0.3 Neut # (Auto) 10.63 H Lymph # (Auto) 0.15 L Early # (Auto) 0.42 Eos # (Auto) 0.00 Baso # (Auto) 0.03 Immature Gran # (Auto) 0.28 H Absolute Nucleated RBC 0.03 Nucleated RBC % (auto) 0.3 Toxic Granulation 3+ Polychromasia 1+ PT 11.3 INR 1.0 APTT 29 PTT Ratio 1.1 Sodium Potassium Chloride Carbon Dioxide Anion Gap BUN Creatinine Est Cr Clr Drug Dosing eGFR 42.42 BUN/Creatinine Ratio 17.4 Glucose 156 H POC Glucose 138 H Calcium 10.7 H Magnesium 2.0 Total Bilirubin 0.4 AST 9 L ALT 12 Alkaline Phosphatase 62 Troponin I High Sens 12.3 D Total Protein 6.2 Albumin 3.2 L Globulin 3.0 Albumin/Globulin Ratio 1.1 Diagnostic Findings History and physical report reviewed. Labs reviewed and notable for abnormal (chronic) renal function, normal potassium, normal magnesium, nonelevated transaminase levels, slightly low TSH, mild leukocytosis, mild anemia (chronic and stable. Normal BNP, normal to slightly elevated high-sensitivity troponin. Blood culture negative x 2 from 06/09/2024. Urine culture from 06/09/2024: Low counts of mixed, probable skin fabián. ECG personally reviewed 06/09/2024 at 1320: Sinus tachycardia 109 bpm. ECG 06/11/2024 at 6:31 AM: Atrial fibrillation rapid ventricular response [address]/T wave abnormality. CTA chest 06/09/2024: No pulmonary embolism per radiology. Diffuse infectious bronchiolitis with areas of developing pneumonia at the periphery of the lung bases per radiology. Telemetry personally reviewed: Sinus rhythm until 06/11/2024 at 6:20 AM when atrial fibrillation with rapid ventricular response began. Heart rate has impr vimal with diltiazem drip. ECHO 06/11/24: 1. Normal left ventricular size and systolic function. EF 60-65%. No regional wall motion abnormalities. Mild concentric left ventricular hypertrophy. 2. No significant valvular abnormalities visualized. 3. Mildly dilated ascending aorta (4.3 cm). 4. Normal estimated right ventricular systolic pressure. 5. Atrial fibrillation. 6. No prior study available for comparison. Medications Administered Current Inpatient Medications Acetaminophen (Acetaminophen 325 Mg Tab) 650 mg PO Q4H PRN PRN Reason: Pain or Fever Stop: 07/09/24 16:48 Last Admin: 06/10/24 08:46 Dose: 650 mg Albuterol (Albut/Ipratrop 3mg/0.5mg Neb 3 Ml Vial) 3 ml NEB Q6R JOSE; Protocol Stop: 07/09/24 18:59 Last Admin: 06/11/24 07:28 Dose: 3 ml Albuterol (Albuterol 0.083% Nebu Soln 3 Ml Vial) 2.5 mg NEB Q6H PRN; Protocol PRN Reason: Shortness Of Breath Or Wheezing Stop: 07/09/24 17:08 Last Admin: 06/11/24 05:43 Dose: 2.5 mg Dextrose (Dextrose 50% 50 Ml Syringe) 25 - 50 ml IV UD PRN; Protocol PRN Reason: Hypoglycemia Protocol Stop: 07/09/24 17:09 Glucagon (Glucagon For Inj 1 Mg Vial) 1 mg SQ UD PRN; Protocol PRN Reason: Hypoglycemia Protocol Stop: 07/09/24 17:09 Glucose (Glucose 40% Gel 15 Gm Tube) 15 - 30 gm PO UD PRN; Protocol PRN Reason: Hypoglycemia Protocol Stop: 07/09/24 17:09 Glucose (Glucose 10 Tab/Tube) 4 - 8 tab PO UD PRN; Protocol PRN Reason: Hypoglycemia Protocol Stop: 07/09/24 17:09 Guaifenesin (Guaifenesin 600 Mg Tabcr) 1,200 mg PO Q12 JOSE Stop: 07/11/24 20:59 Last Admin: 06/11/24 11:12 Dose: 1,200 mg Heparin Sodium (Porcine) (Heparin 100 Unit/Ml 5ml Flush) 5 ml FLUSH PRN PRN PRN Reason: Flush Stop: 07/11/24 08:35 Cefepime HCl (Maxipime 2000mg) 2,000 mg in 20 mls @ 5 mls/min IV Q8H [facility]; Protocol Stop: 06/16/24 22:59 Last Admin: 06/11/24 06:05 Dose: 5 mls/min Hydrocortisone Sodium (Succinate 100 mg/ Syringe) 2 mls @ 4 mls/min IV Q6 [facility] Stop: 07/10/24 00:59 Last Admin: 06/11/24 11:11 Dose: 4 mls/min Diltiazem HCl 125 mg/ Dextrose 125 mls @ 10 mls/hr IV .[id number] [facility]; Protocol Stop: 07/11/24 07:59 Last Titration: 06/11/24 09:46 Dose: 10 mg/hr, 10 mls/hr Heparin Sodium/Dextrose (Heparin Sodium/Dextrose) 25,000 units in 500 mls @ 19 mls/hr IV .Q24H [facility]; Protocol Stop: 07/11/24 08:29 Last Admin: 06/11/24 08:46 Dose: 950 units/hr, 19 mls/hr Insulin Aspart (Insulin Aspart Per Unit Charge) 0 units SC ACHS [facility] Stop: 07/09/24 20:59 Last Admin: 06/11/24 08:57 Dose: 4 units Metoprolol Tartrate (Metoprolol Tartrate 1 Mg/Ml Vial) 5 mg IV Q5M PRN PRN Reason: heart rate >120 bpm Last Admin: 06/11/24 07:50 Dose: 5 mg Miscellaneous (Carbohydrates For Hypoglycemia ) 15 - 30 gm PO UD PRN PRN Reason: Hypoglycemia Protocol Stop: 07/09/24 17:09 Miscellaneous Information (Pharmacy Glycemic Mgmt Consult) 1 each N/A UD PRN PRN Reason: Consult Stop: 07/09/24 17:09 Nystatin (Nystatin Susp 500,000 U/5 Ml Udc) 5 ml PO QID [facility] Stop: 06/21/24 12:59 Last Admin: 06/11/24 11:12 Dose: 5 ml Ondansetron HCl (Ondansetron Inj 2 Mg/Ml 2 Ml Vial) 4 mg IV Q6H PRN PRN Reason: Nausea Stop: 07/09/24 16:48 Pantoprazole Sodium (Pantoprazole 40 Mg Tab) 40 mg PO DAILY [facility] Stop: 07/09/24 17:29 Last Admin: 06/11/24 09:48 Dose: 40 mg PG Care Time/CCT Total # of Minutes Spent Total Time Spent with Patient: Total time spent is greater than 50% in coordination of care (as documented) at patient's floor/unit and/or counseling patient: Coding Level of Care Code 11111 INT INP/OBS CARE 3/75MIN Diagnoses Afib I48.91 Ascending aortic aneurysm I71.21 Hypertension I10
--- NOTE | 2024-06-11 11:50 | Hospitalist Progress Note ---
Date of Service June 11, 2024 Assessment & Plan (1) Afib: Plan: New onset afib w rvr Most likely triggered by the acute infection Will start cardizem drip on account of the low BP Heparin infusion check 2 d echo thyroid levels consult cardiology (2) Human metapneumovirus (hMPV) pneumonia: Plan: PNa 2/2 to Human metapneumovirus. Continue symptomatic mgt albuterol, oxygen supplemenation pulmonary toilet stop vancomycin continue cefepime in case of bacterial superinfection due to immunocompromise (3) Acute hypoxemic respiratory failure: Plan: secondary to 2 (4) CLL (chronic lymphocytic leukemia): (5) Bilateral pneumonia: Plan other chronic conditions -Diabetes mellitus. Basal bolus insulin therapy. With IV steroids anticipate hyperglycemia. Pharmacy consulted. -CLL. Immunotherapy was in March. She is chronically immunosuppressed. Hence broad-spectrum antibiotic therapy as discussed above. -Morbid obesity. -Obstructive sleep apnea. According the patient she wears CPAP at home 17 cm of water. This has been ordered per protocol -Mildly elevated troponin. Will cycle troponins. EKG is reassuring. No chest pain. Probably secondary to demand ischemia from hypoxemia. 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 Monitor carefully. -GERD. Continue PPI. -Hypertension. Will hold antihypertensives at this time given the hypotension. Admission and Anticipated Discharge Date Admission Date: June 09, 2024 Subjective patient seen and examined, says shortness of breath has improved Review of Systems Review of Systems: All systems reviewed are negative, apart from the ones contained in the history. Physical Exam Physical Exam: The patient is awake, alert and oriented 3, well developed and well nourished, normocephalic and atraumatic, lying in bed and in no acute distress. HEENT--PERRL, EOMI, mucous membranes and oropharynx mildly dry Neck--supple. No JVD. No bruits. Thyroid normal, trachea midline, no adenopathy. Heart--normal S1 and S2. No murmurs, rubs or gallops. Lungs--reduced air entry Abdomen--normal bowel sounds and soft. Extremities--no cyanosis or clubbing. No edema. Dermatologic--normal skin turgor, normal color, no abnormal lymph nodes, no rash. Neurologic--cranial nerves II through XII grossly intact. Rheumatologic--normal range of motion. Psychiatric--normal affect. Results & Data Results & Data Vital Signs (Past 12 Hours) Vital Signs Temp Pulse Pulse Resp BP BP Pulse Ox 06/11/24 11:18 118/82 94 06/11/24 10:57 98.1 F 103 H 19 127/82 93 06/11/24 09:54 97.9 F 130 H 18 100/72 93 06/11/24 08:21 813 H 18 89/66 L 90 06/11/24 07:50 165 H 108/80 06/11/24 07:44 165 H 18 108/80 92 06/11/24 07:30 102 H 20 90 06/11/24 07:03 105 H 126/87 06/11/24 07:03 97.2 F L 105 H 25 H 126/87 90 06/11/24 06:48 120 H 112/79 06/11/24 05:44 87 20 88 L 06/11/24 03:01 98.1 F 72 18 137/84 95 O2 Del Method O2 Flow Rate 06/11/24 11:18 Nasal Cannula 2 06/11/24 10:57 Nasal Cannula 3 06/11/24 09:54 Nasal Cannula 2 06/11/24 08:21 Nasal Cannula 2 06/11/24 07:50 06/11/24 07:44 Nasal Cannula 1 06/11/24 07:30 Nasal Cannula 2 06/11/24 07:03 06/11/24 07:03 Nasal Cannula 1 06/11/24 06:48 06/11/24 05:44 Room Air 06/11/24 03:01 Nasal Cannula PG Care Time/CCT Total # of Minutes Spent Total Time Spent with Patient: Total time spent is greater than 50% in coordination of care (as documented) at patient's floor/unit and/or counseling patient: Coding Level of Care Code 19351 SUB INP/OBS CARE 2/35MIN Diagnoses Afib I48.91 Human metapneumovirus (hMPV) pneumonia J12.3 Acute hypoxemic respiratory failure J96.01 CLL (chronic lymphocytic leukemia) C91.90 Bilateral pneumonia J18.9 Time Spent (min) 35
[2024-06-11 15:19] LABS: ANTI-Xa, UFH(UnfractionatedHep 0.49 IU/ml (0.3-0.7)
--- NOTE | 2024-06-11 15:42 | XCELERA ---
[id number]
[2024-06-11] MEDS: CEFEPIME 2000MG 2,000 MG/20 ML SYR IV SCH (18:17)
[2024-06-11] MEDS ORDERED: Nursing to Pharmacy Communication SCH (19:15)
[2024-06-12 07:01] LABS: Creatinine Clr Calc Pharmacy 54.7 ml/min
[2024-06-12 07:14] LABS: ANTI-Xa, UFH(UnfractionatedHep 0.21 IU/ml (0.3-0.7)
[2024-06-12 07:16] LABS: Thyroid Stimulating Hormone 0.274 uIu/ml (0.300-4.500)
[2024-06-12 07:18] LABS: T4 Free Thyroxine 1.18 ng/dl (0.61-1.60)
[2024-06-12] MEDS ORDERED: 0.2 MICRON FILTER SET 1 EACH IV STA (09:02)
[2024-06-12] MEDS ORDERED: STAT IV Infusion **Titration per Protocol STA (09:02)
[2024-06-12] MEDS ORDERED: AMIODARONE IV BOLUS & DRIP IV STA (09:02)
[2024-06-12] MEDS: AMIODARONE / D5W 150 MG/100 ML BAG IV STA (09:26)
[2024-06-12] MEDS: APIXABAN 5 MG TABLET PO SCH (11:02)
--- NOTE | 2024-06-12 11:03 | Cardiology Progress Note ---
Date of Service June 12, 2024 Assessment & Plan (1) Afib: (2) Ascending aortic aneurysm: (3) Hypertension: (4) Atrial flutter: Plan ASSESSMENT/PLAN: 1. Atrial fibrillation/flutter: Seem to be mostly asymptomatic while in atrial fibrillation but on telemetry, now in atrial flutter with rapid ventricular response with palpitations. With more rapid heart rates, also hypotensive. Discontinue diltiazem drip and ordered amiodarone bolus 150 mg followed by drip. Discussed both with nursing staff and primary hospitalist, as well as patient. Plan would be for short-term amiodarone to help convert. Did not proceed with DC cardioversion as she had just eaten breakfast. Continue anticoagulation for stroke risk reduction. Monitor CBC. 2. Ascending thoracic aortic aneurysm: Followed in the outpatient setting by Dr. Carias, her primary panama hat blocker. Continue ARB and beta-esme on discharge. Blood pressure control. Annual surveillance. Avoid strenuous lifting for which the Valsalva maneuver is required. 3. Hypertension: Normotensive and then hypotensive with atrial flutter with more rapid heart rates. Home antihypertensive agents are currently held for concerns of sepsis by the hospitalist service. 4. CLL: As per other providers. 5. Bilateral pneumonia/human metapneumovirus/acute hypoxemic respiratory failure: As per primary hospitalist service. 6. Disposition: Cardiology will continue to follow. Patient care communicated with primary hospitalist, Dr. Leggett. Once discharged, she should follow-up with her primary panama hat blocker, Dr. Carias. Addendum: Prior to the amiodarone administration, she spontaneously converted to sinus rhythm at 9:13 AM today. Return to patient room to inform her. Her palpitations resolved and she felt much better in that regard. Nursing staff was at the bedside and she was also informed. She had just completed the amiodarone IV bolus, which was started after she had converted to sinus rhythm. Nursing staff informed that she no longer needs the amiodarone drip. Dr. Leggett also notified. Admission and Anticipated Discharge Date Admission Date: June 09, 2024 Subjective Patient seen this morning. She developed palpitations, most notably when out of bed but also while in bed. She states that her heart was fluttering. She denies chest pain. Her breathing is slowly improving from day-to-day. She denies syncope, near syncope, edema, or bleeding. She was unaccompanied. Physical Exam Physical Exam: Gen.: No acute distress. Alert. HEENT: Anicteric sclera. Neck: Thick neck. Cardiac: Irregularly irregular and tachycardic. Normal S1-S2. No murmurs, rubs, or gallops. Pulmonary: Coarse breath sounds at the bases. Abdomen: Soft, nontender, nondistended, with normoactive bowel sounds. No bruits noted. Extremities: 2+ radial pulses bilaterally. 2+ posterior tibialis pulses bilaterally. No edema or cyanosis. Results & Data Vital Signs (Past 12 Hours) Vital Signs Temp Pulse Resp BP Pulse Ox O2 Del Method O2 Flow Rate 06/12/24 08:58 Nasal Cannula 3 06/12/24 08:44 155 H 18 87/59 L 90 Nasal Cannula 3 06/12/24 08:21 36.4 C L 123 H 18 91/64 L 88 L Nasal Cannula 2 06/12/24 07:26 87 16 90 Room Air 06/12/24 07:07 36.3 C L 86 18 110/75 89 L Room Air 06/12/24 03:41 36.8 C 88 18 118/67 94 Room Air Intake & Output 06/10/24 06/11/24 06/12/24 06/13/24 06:59 06:59 06:59 06:59 Intake Total 2089 460 / 460 650.434 / 650.434 302.134 / 302.134 Balance 2089 460 / 460 650.434 / 650.434 302.134 / 302.134 Weight 260 lb 8 oz 260 lb 2.327 oz 261 lb 14.546 oz Laboratory Results Laboratory Results - last 24 hr 06/11/24 06/11/24 06/11/24 11:00 14:24 16:05 Heparin Anti-Xa, Unfract 0.49 Creatinine Est Cr Clr Drug Dosing eGFR POC Glucose 138 H 148 H TSH Free T4 06/11/24 06/12/24 06/12/24 19:58 06:18 07:10 Heparin Anti-Xa, Unfract 0.21 L Creatinine 1.44 H Est Cr Clr Drug Dosing 54.7 eGFR 42.42 POC Glucose 132 H 139 H TSH 0.274 L Free T4 1.18 Diagnostic Findings Labs reviewed and notable for mildly abnormal but stable renal function. Mildly abnormal TSH. Telemetry personally reviewed: Atrial fibrillation with reasonable rate control while on diltiazem drip before what appears to be atrial flutter with rapid ventricular response in the 150s this morning. Medications Administered Current Inpatient Medications Acetaminophen (Acetaminophen 325 Mg Tab) 650 mg PO Q4H PRN PRN Reason: Pain or Fever Stop: 07/09/24 16:48 Last Admin: 06/10/24 08:46 Dose: 650 mg Albuterol (Albut/Ipratrop 3mg/0.5mg Neb 3 Ml Vial) 3 ml NEB Q6R JOSE; Protocol Stop: 07/09/24 18:59 Last Admin: 06/12/24 07:26 Dose: 3 ml Albuterol (Albuterol 0.083% Nebu Soln 3 Ml Vial) 2.5 mg NEB Q6H PRN; Protocol PRN Reason: Shortness Of Breath Or Wheezing Stop: 07/09/24 17:08 Last Admin: 06/11/24 05:43 Dose: 2.5 mg Apixaban (Apixaban 5 Mg Tablet) 5 mg PO BID JOSE Stop: 07/12/24 08:59 Last Admin: 06/12/24 11:02 Dose: 5 mg Dextrose (Dextrose 50% 50 Ml Syringe) 25 - 50 ml IV UD PRN; Protocol PRN Reason: Hypoglycemia Protocol Stop: 07/09/24 17:09 Glucagon (Glucagon For Inj 1 Mg Vial) 1 mg SQ UD PRN; Protocol PRN Reason: Hypoglycemia Protocol Stop: 07/09/24 17:09 Glucose (Glucose 40% Gel 15 Gm Tube) 15 - 30 gm PO UD PRN; Protocol PRN Reason: Hypoglycemia Protocol Stop: 07/09/24 17:09 Glucose (Glucose 10 Tab/Tube) 4 - 8 tab PO UD PRN; Protocol PRN Reason: Hypoglycemia Protocol Stop: 07/09/24 17:09 Guaifenesin (Guaifenesin 600 Mg Tabcr) 1,200 mg PO Q12 JOSE Stop: 07/11/24 20:59 Last Admin: 06/12/24 08:04 Dose: 1,200 mg Heparin Sodium (Porcine) (Heparin 100 Unit/Ml 5ml Flush) 5 ml FLUSH PRN PRN PRN Reason: Flush Stop: 07/11/24 08:35 Hydrocortisone Sodium (Succinate 100 mg/ Syringe) 2 mls @ 4 mls/min IV Q6 [facility] Stop: 07/10/24 00:59 Last Admin: 06/12/24 05:30 Dose: 4 mls/min Cefepime HCl (Maxipime 2000mg) 2,000 mg in 20 mls @ 5 mls/min IV Q12H [facility]; Protocol Stop: 06/16/24 23:59 Last Admin: 06/12/24 05:30 Dose: 5 mls/min Amiodarone HCl/Dextrose (Nexterone / D5w) 360 mg in 200 mls @ 33.333 mls/hr IV ONE ONE Stop: 06/12/24 15:12 Amiodarone HCl/Dextrose (Nexterone / D5w) 360 mg in 200 mls @ 16.667 mls/hr IV .Q12H [facility] Stop: 07/12/24 15:14 Insulin Aspart (Insulin Aspart Per Unit Charge) 0 units SC ACHS [facility] Stop: 07/09/24 20:59 Last Admin: 06/12/24 08:03 Dose: 4 units Metoprolol Tartrate (Metoprolol Tartrate 1 Mg/Ml Vial) 5 mg IV Q5M PRN PRN Reason: heart rate >120 bpm Last Admin: 06/11/24 07:50 Dose: 5 mg Miscellaneous (Carbohydrates For Hypoglycemia ) 15 - 30 gm PO UD PRN PRN Reason: Hypoglycemia Protocol Stop: 07/09/24 17:09 Miscellaneous Information (Pharmacy Glycemic Mgmt Consult) 1 each N/A UD PRN PRN Reason: Consult Stop: 07/09/24 17:09 Nystatin (Nystatin Susp 500,000 U/5 Ml Udc) 5 ml PO QID [facility] Stop: 06/21/24 12:59 Last Admin: 06/12/24 08:04 Dose: 5 ml Ondansetron HCl (Ondansetron Inj 2 Mg/Ml 2 Ml Vial) 4 mg IV Q6H PRN PRN Reason: Nausea Stop: 07/09/24 16:48 Pantoprazole Sodium (Pantoprazole 40 Mg Tab) 40 mg PO DAILY [facility] Stop: 07/09/24 17:29 Last Admin: 06/12/24 08:04 Dose: 40 mg PG Care Time/CCT Total # of Minutes Spent Total Time Spent with Patient: Total time spent is greater than 50% in coordination of care (as documented) at patient's floor/unit and/or counseling patient: Coding Level of Care Code 82091 SUB INP/OBS CARE 350MIN Diagnoses Afib I48.91 Ascending aortic aneurysm I71.21 Hypertension I10 Atrial flutter I48.92
--- NOTE | 2024-06-12 11:21 | Pharmacy Report ---
Pharmacy Glycemic Sign Off Nt - Date of Service June 12, 2024 - Assessment & Plan ASSESSMENT: * Pharmacy was consulted by Dr Chase on 06/09 for glycemic control and to write orders per [facility] inpatient glycemic control protocol. * Major changes made by pharmacy to antidiabetic regimen include: * added novolog scale * Patient has been receiving/requiring <15 units of correctional insulin * Regimen has only required minor adjustments over the past 48hrs to achieve this level of control * Please see recommendations for outpatient antidiabetic regimen below. PLAN FOR INPATIENT GLYCEMIC CONTROL: No changes needed to current regimen. * No basal insulin warranted * Continue NovoLog per scale ACHS/Q6hrs while NPO * Goal range = 110 - 140 mg/dl * CF = 40 mg/dl/unit * CR = 1 unit for ever 15 g CHO consumed * Pharmacy is signing off of glycemic consult and will no longer be making adjustments to inpatient regimen. Please feel free to re-consult if needed. Thank you.
--- NOTE | 2024-06-12 11:46 | Hospitalist Progress Note ---
Date of Service June 12, 2024 Assessment & Plan (1) Afib: Plan: New onset afib w rvr Most likely triggered by the acute infection Initially started on cardizem drip, now transitioned to Amiodarone Heparin infusion has been discontinued, started on PO eliquis 2 d echo did not show any wall motion abnormality thyroid levels wnl Appreciate cardiology recs (2) Human metapneumovirus (hMPV) pneumonia: Plan: PNa 2/2 to Human metapneumovirus. Continue symptomatic mgt albuterol, oxygen supplemenation pulmonary toilet continue cefepime in case of bacterial superinfection due to immunocompromise fells better (3) Acute hypoxemic respiratory failure: Plan: secondary to 2 (4) CLL (chronic lymphocytic leukemia): (5) Bilateral pneumonia: Plan other chronic conditions -Diabetes mellitus. Basal bolus insulin therapy. With IV steroids anticipate hyperglycemia. Pharmacy consulted. -CLL. Immunotherapy was in March. She is chronically immunosuppressed. Hence broad-spectrum antibiotic therapy as discussed above. -Morbid obesity. -Obstructive sleep apnea. According the patient she wears CPAP at home 17 cm of water. This has been ordered per protocol -Mildly elevated troponin. Will cycle troponins. EKG is reassuring. No chest pain. Probably secondary to demand ischemia from hypoxemia. 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 Monitor carefully. -GERD. Continue PPI. -Hypertension. Will hold antihypertensives at this time given the hypotension. Admission and Anticipated Discharge Date Admission Date: June 09, 2024 Subjective patient seen and examined, feels better today, felt some palpations Review of Systems Review of Systems: All systems reviewed are negative, apart from the ones contained in the history. Physical Exam Physical Exam: The patient is awake, alert and oriented 3, well developed and well nourished, normocephalic and atraumatic, lying in bed and in no acute distress. HEENT--PERRL, EOMI, mucous membranes and oropharynx mildly dry Neck--supple. No JVD. No bruits. Thyroid normal, trachea midline, no adenopathy. Heart--normal S1 and S2. No murmurs, rubs or gallops. Lungs--reduced air entry Abdomen--normal bowel sounds and soft. Extremities--no cyanosis or clubbing. No edema. Dermatologic--normal skin turgor, normal color, no abnormal lymph nodes, no rash. Neurologic--cranial nerves II through XII grossly intact. Rheumatologic--normal range of motion. Psychiatric--normal affect. Results & Data Results & Data Vital Signs (Past 12 Hours) Vital Signs Temp Pulse Resp BP Pulse Ox O2 Del Method O2 Flow Rate 06/12/24 11:06 97.7 F 91 H 18 94/64 L 91 Nasal Cannula 3 06/12/24 08:58 Nasal Cannula 3 06/12/24 08:44 155 H 18 87/59 L 90 Nasal Cannula 3 06/12/24 08:21 97.5 F L 123 H 18 91/64 L 88 L Nasal Cannula 2 06/12/24 07:26 87 16 90 Room Air 06/12/24 07:07 97.3 F L 86 18 110/75 89 L Room Air 06/12/24 03:41 98.2 F 88 18 118/67 94 Room Air PG Care Time/CCT Total # of Minutes Spent Total Time Spent with Patient: Total time spent is greater than 50% in coordination of care (as documented) at patient's floor/unit and/or counseling patient: Coding Level of Care Code 80156 SUB INP/OBS CARE 2/35MIN Diagnoses Afib I48.91 Human metapneumovirus (hMPV) pneumonia J12.3 Acute hypoxemic respiratory failure J96.01 CLL (chronic lymphocytic leukemia) C91.90 Bilateral pneumonia J18.9 Time Spent (min) 35
[2024-06-12] MEDS: AMIODARONE / D5W 360 MG/200 ML BAG IV ONE (12:22)
[2024-06-12] MEDS ORDERED: AMIODARONE / D5W 360 MG/200 ML BAG IV SCH (15:15)
--- NOTE | 2024-06-12 21:35 | Electrocardiogram Report ---
Test Reason : Blood Pressure : */* mmHG Vent. Rate : 162 BPM Atrial Rate : * BPM P-R Int : * ms QRS Dur : 116 ms QT Int : 292 ms P-R-T Axes : * -5 252 degrees QTcB Int : 479 ms Atrial fibrillation with rapid ventricular response Nonspecific ST and T wave abnormality Abnormal ECG When compared with ECG of 09-Jun-2024 13:20, Atrial fibrillation has replaced Sinus rhythm ST now depressed in Lateral leads Nonspecific T wave abnormality, worse in Inferior leads Confirmed by Michael Fish ([id number]) on 06/12/2024 9:35:18 PM Referred By: REFERRED SELF Confirmed By: Michael Fish
--- NOTE | 2024-06-12 21:36 | Electrocardiogram Report ---
Test Reason : Blood Pressure : */* mmHG Vent. Rate : 94 BPM Atrial Rate : * BPM P-R Int : * ms QRS Dur : 102 ms QT Int : 340 ms P-R-T Axes : * 23 4 degrees QTcB Int : 425 ms Atrial fibrillation Low voltage QRS Abnormal ECG When compared with ECG of 11-Jun-2024 06:31, Vent. rate has decreased by 68 bpm Confirmed by Michael Fish ([id number] on 06/12/2024 9:35:29 PM Referred By: REFERRED SELF Confirmed By: Michael Fish
[2024-06-13 07:26] VITALS: TEMP 97.3
[2024-06-13] MEDS: HEPARIN 100 UNIT/ML 5ML FLUSH FLUSH PRN (07:39)
[2024-06-13 08:41] LABS: BUN Creatinine Ratio 18.7 (10-20); Calcium 10.7 mg/dl (8.6-10.3); Creatinine Clr Calc Pharmacy 47.6 ml/min; Potassium 3.9 mmol/L (3.5-5.1)
[2024-06-13 11:24] VITALS: BP 104/71; RESP 18
--- NOTE | 2024-06-13 11:29 | Discharge Summary ---
Date of Service June 13, 2024 Admission HPI Per Admitting Provider This is a 58-year-old female who has a history of CLL. She had immunotherapy in March. On chronic steroid therapy 30 mg of prednisone daily. Presented to the ER with shortness of breath and cough ongoing for a few days. Is found to be high hypoxemic. Requiring 8 L of oxygen nasal cannula in the ER to keep her O2 sats above 90. She was tachycardic and mildly hypotensive. She received IV fluids. CTA was negative for PE but positive for bilateral lower lobe infiltrates. Also her respiratory viral panel tested positive for human metapneumovirus. Course in the ER she received IV cefepime. She also received sepsis fluid bolus. Admit the patient for further evaluation and treatment for clinical sepsis bilateral pneumonia in an immunocompromised patient with acute [place] human pneumo virus. Did the fact he is on chronic steroids reported hydrocortisone stat at 100 mg IV we have ordered this every 6 hours. This will need to be titrated back to an oral dose of prednisone once she stabilizes. We will order cefepime and vancomycin given her immunocompromise state. Continue stress dose steroids. Nebulizer therapy. Admission Exam (Per Admitting) Constitutional The patient is awake, alert and oriented 3, well developed and well nourished, normocephalic and atraumatic, lying in bed and in no acute distress. HEENT--PERRL, EOMI, mucous membranes and oropharynx mildly dry Neck--supple. No JVD. No bruits. Thyroid normal, trachea midline, no adenopathy. Heart--normal S1 and S2. No murmurs, rubs or gallops. Lungs--clear bilaterally, no respiratory distress, no accessory muscle use. Abdomen--normal bowel sounds and soft. Extremities--no cyanosis or clubbing. No edema. Dermatologic--normal skin turgor, normal color, no abnormal lymph nodes, no rash. Neurologic--cranial nerves II through XII grossly intact. Rheumatologic--normal range of motion. Psychiatric--normal affect. Discharge Data Consultations 06/09/24 16:20 ED Decision to Admit Stat 06/11/24 08:02 Consult Cardiology Routine Hospital Course (1) Afib: New onset afib w rvr Most likely triggered by the acute infection Initially started on cardizem drip, now transitioned to Amiodarone Patient converted to sinus rhythm yesterday before the amiodarone 2 d echo did not show any wall motion abnormality thyroid levels wnl No need for anticoagulation on discharge (2) Human metapneumovirus (hMPV) pneumonia: PNa 2/2 to Human metapneumovirus. Continue symptomatic mgt albuterol, oxygen supplemenation pulmonary toilet continue cefepime in case of bacterial superinfection due to immunocompromise fells better discharge on PO azithromycin for 5 days (3) Acute hypoxemic respiratory failure: secondary to 2, resolved (4) CLL (chronic lymphocytic leukemia): (5) Bilateral pneumonia: Plan other chronic conditions -Diabetes mellitus. Basal bolus insulin therapy. With IV steroids anticipate hyperglycemia. Pharmacy consulted. -CLL. Immunotherapy was in March. She is chronically immunosuppressed. Hence broad-spectrum antibiotic therapy as discussed above. -Morbid obesity. -Obstructive sleep apnea. According the patient she wears CPAP at home 17 cm of water. This has been ordered per protocol -Mildly elevated troponin. Will cycle troponins. EKG is reassuring. No chest pain. Probably secondary to demand ischemia from hypoxemia. 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 Monitor carefully. -GERD. Continue PPI. -Hypertension. Will hold antihypertensives at this time given the hypotension. Coding Level of Care Code 17154 INP/OBS DISCH >30 MIN Diagnoses Afib I48.91 Human metapneumovirus (hMPV) pneumonia J12.3 Acute hypoxemic respiratory failure J96.01 CLL (chronic lymphocytic leukemia) C91.90 Bilateral pneumonia J18.9 Time Spent (min) 35
[2024-06-13 12:13] VITALS: PULSE 100; O2SAT 92
--- NOTE | 2024-06-13 12:55 | Cardiology Progress Note ---
Date of Service June 13, 2024 Assessment & Plan (1) Afib: (2) Ascending aortic aneurysm: (3) Hypertension: (4) Atrial flutter: Plan ASSESSMENT/PLAN: 1. Atrial fibrillation/flutter: Seem to be mostly asymptomatic while in atrial fibrillation but more symptomatic when abruptly developed atrial flutter with more elevated rates compared to A-fib. Recommend beta-esme. She had spontaneously converted while amiodarone was being ordered, although she did receive amiodarone apparently after converting to sinus. Continue anticoagulation for stroke risk reduction. Monitor CBC. Recommend close follow-up with her primary product technology scientist/data recovery planner. Unclear if she has paroxysmal A-fib/flutter or if it occurred more in the setting of her acute illness. For now, would recommend anticoagulation therapy for stroke risk reduction. Suggest Eliquis 5 mg twice daily on discharge, if no contraindication. 2. Ascending thoracic aortic aneurysm: Followed in the outpatient setting by Dr. Carias, her primary product technology scientist. Continue ARB and beta-esme on dischar ge. Blood pressure control. Annual surveillance. Avoid strenuous lifting for which the Valsalva maneuver is required. 3. Hypertension: Normotensive and then hypotensive with atrial flutter with m ore rapid heart rates. Resume home antihypertensive agents, especially beta- esme given her arrhythmia issues here. 4. CLL: As per other providers. 5. Bilateral pneumonia/human metapneumovirus/acute hypoxemic respiratory failure: As per primary hospitalist service. 6. Disposition: Cardiology will sign off. Patient care communicated with primary hospitalist, Dr. Leggett. Once discharged, she should follow-up with her primary product technology scientist, Dr. Carias. Admission and Anticipated Discharge Date Admission Date: June 09, 2024 Subjective Patient seen late this morning. She has dyspnea on exertion but in general, her shortness of breath is nearly back to baseline. She denies chest pain, further palpitations, syncope, near syncope, or edema. She was unaccompanied. Physical Exam Physical Exam: Gen.: No acute distress. Alert. HEENT: Anicteric sclera. Neck: Thick neck. Cardiac: Regular. Normal S1-S2. No murmurs, rubs, or gallops. Pulmonary: Coarse breath sounds at the bases, but improved. Abdomen: Soft, nontender, nondistended, with normoactive bowel sounds. No bruits noted. Extremities: 2+ radial pulses bilaterally. 2+ posterior tibialis pulses bi laterally. No edema or cyanosis. Results & Data Vital Signs (Past 12 Hours) Vital Signs Temp Pulse Pulse Pulse Pulse Resp Resp 06/13/24 12:12 100 H 18 06/13/24 11:19 36.3 C L 109 H 18 06/13/24 09:13 140 H 120 H 26 H 06/13/24 07:26 36.3 C L 81 18 06/13/24 07:20 18 06/13/24 07:11 78 06/13/24 03:40 36.7 C 78 18 06/13/24 02:58 17 Resp BP Pulse Ox Pulse Ox Pulse Ox O2 Del Method 06/13/24 12:12 92 Room Air 06/13/24 11:19 104/71 88 L Room Air 06/13/24 09:13 20 89 L 91 06/13/24 07:26 125/79 91 Nasal Cannula 06/13/24 07:20 91 Room Air 06/13/24 07:11 06/13/24 03:40 109/78 95 CPAP 06/13/24 02:58 Laboratory Results Laboratory Results - last 24 hr 06/12/24 06/12/24 06/13/24 16:17 20:00 07:25 Sodium Potassium Chloride Carbon Dioxide Anion Gap BUN Creatinine Est Cr Clr Drug Dosing eGFR BUN/Creatinine Ratio Glucose POC Glucose 150 H 184 H 140 H Calcium 06/13/24 06/13/24 08:02 11:22 Sodium 144 Potassium 3.9 Chloride 107 Carbon Dioxide 28 Anion Gap 9 BUN 31 H Creatinine 1.66 H Est Cr Clr Drug Dosing 47.6 eGFR 35.77 BUN/Creatinine Ratio 18.7 Glucose 168 H POC Glucose 134 H Calcium 10.7 H Diagnostic Findings Telemetry personally reviewed: Sinus rhythm. No recurrent arrhythmia. Labs reviewed from 06/13/2024: Chronically abnormal renal function, normal potassium. ECG ordered and reviewed from 06/13/2024: Sinus tachycardia 101 bpm. Poor R wave progression. Medications Administered Current Inpatient Medications Acetaminophen (Acetaminophen 325 Mg Tab) 650 mg PO Q4H PRN PRN Reason: Pain or Fever Stop: 07/09/24 16:48 Last Admin: 06/10/24 08:46 Dose: 650 mg Albuterol (Albut/Ipratrop 3mg/0.5mg Neb 3 Ml Vial) 3 ml NEB Q6R JOSE; Protocol Stop: 07/09/24 18:59 Last Admin: 06/13/24 12:12 Dose: 3 ml Albuterol (Albuterol 0.083% Nebu Soln 3 Ml Vial) 2.5 mg NEB Q6H PRN; Protocol PRN Reason: Shortness Of Breath Or Wheezing Stop: 07/09/24 17:08 Last Admin: 06/11/24 05:43 Dose: 2.5 mg Apixaban (Apixaban 5 Mg Tablet) 5 mg PO BID JOSE Stop: 07/12/24 08:59 Last Admin: 06/13/24 08:25 Dose: 5 mg Dextrose (Dextrose 50% 50 Ml Syringe) 25 - 50 ml IV UD PRN; Protocol PRN Reason: Hypoglycemia Protocol Stop: 07/09/24 17:09 Glucagon (Glucagon For Inj 1 Mg Vial) 1 mg SQ UD PRN; Protocol PRN Reason: Hypoglycemia Protocol Stop: 07/09/24 17:09 Glucose (Glucose 40% Gel 15 Gm Tube) 15 - 30 gm PO UD PRN; Protocol PRN Reason: Hypoglycemia Protocol Stop: 07/09/24 17:09 Glucose (Glucose 10 Tab/Tube) 4 - 8 tab PO UD PRN; Protocol PRN Reason: Hypoglycemia Protocol Stop: 07/09/24 17:09 Guaifenesin (Guaifenesin 600 Mg Tabcr) 1,200 mg PO Q12 JOSE Stop: 07/11/24 20:59 Last Admin: 06/13/24 08:26 Dose: 1,200 mg Heparin Sodium (Porcine) (Heparin 100 Unit/Ml 5ml Flush) 5 ml FLUSH PRN PRN PRN Reason: Flush Stop: 07/11/24 08:35 Last Admin: 06/13/24 07:39 Dose: 5 ml Hydrocortisone Sodium (Succinate 100 mg/ Syringe) 2 mls @ 4 mls/min IV Q6 JOSE Stop: 07/10/24 00:59 Last Admin: 06/13/24 05:41 Dose: 4 mls/min Cefepime HCl (Maxipime 2000mg) 2,000 mg in 20 mls @ 5 mls/min IV Q12H JOSE; Protocol Stop: 06/16/24 23:59 Last Admin: 06/13/24 05:41 Dose: 5 mls/min Insulin Aspart (Insulin Aspart Per Unit Charge) 0 units SC ACHS [facility] Stop: 07/09/24 20:59 Last Admin: 06/13/24 08:25 Dose: 4 units Metoprolol Tartrate (Metoprolol Tartrate 1 Mg/Ml Vial) 5 mg IV Q5M PRN PRN Reason: heart rate >120 bpm Last Admin: 06/11/24 07:50 Dose: 5 mg Miscellaneous (Carbohydrates For Hypoglycemia ) 15 - 30 gm PO UD PRN PRN Reason: Hypoglycemia Protocol Stop: 07/09/24 17:09 Nystatin (Nystatin Susp 500,000 U/5 Ml Udc) 5 ml PO QID [facility] Stop: 06/21/24 12:59 Last Admin: 06/13/24 08:26 Dose: 5 ml Ondansetron HCl (Ondansetron Inj 2 Mg/Ml 2 Ml Vial) 4 mg IV Q6H PRN PRN Reason: Nausea Stop: 07/09/24 16:48 Pantoprazole Sodium (Pantoprazole 40 Mg Tab) 40 mg PO DAILY [facility] Stop: 07/09/24 17:29 Last Admin: 06/13/24 08:26 Dose: 40 mg PG Care Time/CCT Total # of Minutes Spent Total Time Spent with Patient: Total time spent is greater than 50% in coordination of care (as documented) at patient's floor/unit and/or counseling patient: Coding Level of Care Code 93137 SUB INP/OBS CARE 3/50MIN Diagnoses Afib I48.91 Ascending aortic aneurysm I71.21 Hypertension I10 Atrial flutter I48.92
--- NOTE | 2024-06-14 06:17 | Electrocardiogram Report ---
Test Reason : Blood Pressure : */* mmHG Vent. Rate : 92 BPM Atrial Rate : 92 BPM P-R Int : 178 ms QRS Dur : 116 ms QT Int : 342 ms P-R-T Axes : 42 33 1 degrees QTcB Int : 422 ms Poor data quality, interpretation may be adversely affected Sinus rhythm with occasional Premature ventricular complexes Low voltage QRS Abnormal ECG When compared with ECG of 12-Jun-2024 05:26, Sinus rhythm has replaced Atrial fibrillation Confirmed by Michael Fish ([id number]) on 06/14/2024 6:17:09 AM Referred By: REFERRED SELF Confirmed By: Michael Fish
--- NOTE | 2024-06-15 06:42 | Electrocardiogram Report ---
Test Reason : Blood Pressure : */* mmHG Vent. Rate : 101 BPM Atrial Rate : 101 BPM P-R Int : 180 ms QRS Dur : 112 ms QT Int : 330 ms P-R-T Axes : 43 12 19 degrees QTcB Int : 427 ms Sinus tachycardia Otherwise normal ECG When compared with ECG of 12-Jun-2024 13:04, Premature ventricular complexes are no longer Present Confirmed by Michael Fish ([id number]) on 06/15/2024 6:41:51 AM Referred By: REFERRED SELF Confirmed By: Michael Fish
== END 2024-06-13 14:18 | disposition home or self-care (01) | DRG 193 ==
LOC: ED 13:03 → SUATTDRO 16:49 → 2S 16:49